=== PATIENT | male | born 1960 | race Caucasian/White ===

== ENCOUNTER 2022-08-23 22:41 | Emergency (ER) | payer MEDICARE, SELFPAY ==
[2022-08-23 22:43] VITALS: BP 120/75; PULSE 102; RESP 18; TEMP 36.5; O2SAT 99; BMI 27.8
--- NOTE | 2022-08-23 23:03 | ECG_ITS ---
Test Reason : SOB Blood Pressure : / mmHG Vent. Rate : 094 BPM Atrial Rate : 094 BPM P-R Int : 166 ms QRS Dur : 096 ms QT Int : 374 ms P-R-T Axes : 066 018 058 degrees QTc Int : 467 ms Normal sinus rhythm Possible Left atrial enlargement Incomplete right bundle branch block Borderline ECG When compared with ECG of 09-JAN-2010 04:09, QT has lengthened Referred By: Generic ED Physician Electronically Signed By:JOSEPH CAMPOVERDE MD
--- NOTE | 2022-08-23 23:06 | PC.NURSE ---
this rn assumed care of pt from waiting room @ 2300. pt tearful in room. 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 ekg order placed at this time. pt denies to this rn si/hi.
--- OUTSIDE RECORDS SUMMARY | 2022-08-23 23:23 | XMS_ITS | Continuity of Care Document ---
Author Name Unknown Organization [facility] Address [address] [place] [address]- Care Team Providers Care Wick And Base Assembler Name Role Phone Not on Staff, PCP Primary Care Physician Unavail able Encounter [facility] Date(s): 04/30/22 - 04/30/[address] [address]- Encounter Diagnosis Chest pain(Final) - 04/30/22 Discharge Disposition: A-D/C Home Attending Physician: Jasmyne MONSIVAIS, Domingo Dawson Admitting Physician: Jasmyne MONSIVAIS, Domingo Dawson Referring Physician: Not on Staff, Referring MD Allergies, Adverse Reactions, Alerts Substance Reaction Severity Status somatrem Persistent Mild Active tricyclic antidepressants Unknown Ac tive benzodiazepines 1 Unknown Active Flexeril Persistent Mild Active Haldol Persistent Severe Active Depakote Active Fish Active . Per MD pt states he know he has a problem and chooses not to take them. Not true allergy Immunizations Given and Recorded Vaccine Date Status Refusal Reason tetanus/diphtheria/pertussis, acel(Tdap) 11/22/11 Given Medications aspirin 81 mg oral tablet 1 tablet = 81 mg, By Mouth, Daily, # 30 tablet, 0 Refills, Maintenance, 02/27/18 23:06:42 EST, Tablet Start Date: 02/27/18 Status: Ordered atorvastatin 40 mg oral tablet 1 tablet = 40 mg, By Mouth, Daily, # 30 tablet, 0 Refills, Maintenance, Tablet Start Date: 07/27/16 Status: Ordered cloNIDine 0.1 mg oral tablet 0.1 mg, 1, tablet, By Mouth, 2 times a day, PRN, # 10 tablet, Refills 0, Tot. Refills 0, Maintenance, Anxiety, 09/02/21 20:43:00 EDT, Print Requisition, Partial fill upon patient request if the prescription is for a schedule II opioid drug. Start Date: 09/02/21 Stop Date: 09/09/21 Status: Ordered Crestor 40 mg oral tablet 1 tablet = 40 mg, By Mouth, Daily at bedtime, 0 Refills, Maintenance, 05/06/18 16:33:14 EST Start Date: 05/06/18 Status: Ordered desipramine 50 mg oral tablet 1 tablet = 50 mg, By Mouth, 3 times a day, 0 Refills, Maintenance, 07/27/16 13:55:52 Start Date: 07/27/16 Status: Ordered Dextroamphetamine By Mouth, Refills 0, Tot. Refills 0, Maintenance, 03/10/22 16:29:00 EST, Partial fill upon patient request if the prescription is for a schedule II opioid drug. Start Date: 03/10/22 Status: Ordered ibuprofen 600 mg oral tablet 600 mg, 1, tablet, By Mouth, Every 6 hours, PRN, # 30 tablet, Refills 0, Tot. Refills 0, Maintenance, as needed for pain, 02/27/18 23:52:14 EST, Print Requisition Start Date: 02/27/18 Status: Ordered lisinopril 20 mg oral tablet 1 tablet = 20 mg, By Mouth, Daily, # 30 tablet, 0 Refills, Maintenance, 06/10/14 15:35:51, Tablet Start Date: 06/10/14 Status: Ordered Methylphenidate 0 Refills, Maintenance, 03/10/22 16:29:00 EST, Partial fill upon patient request if the prescription is for a schedule II opioid drug. Start Date: 03/10/22 Status: Ordered mirtazapine 15 mg oral tablet 1 tablet = 15 mg, By Mouth, Daily at bedtime, 0 Refills, Maintenance, 03/10/22 16:29:00 EST, Partial fill upon patient request if the prescription is for a schedule II opioid drug. Start Date: 03/10/22 Status: Ordered Percocet-5/325 325 mg-5 mg oral tablet 1, tablet, By Mouth, Every 6 hours, PRN, # 12 tablet, Refills 0, Tot. Refills 0, Maintenance, for pain, 02/27/18 23:52:25 EST, Print Requisition, Tablet Start Date: 02/27/18 Status: Ordered pilocarpine 7.5 mg oral tablet 1 tablet = 7.5 mg, By Mouth, 2 times a day, 0 Refills, Maintenance, 04/28/14 11:07:10 Start Date: 04/28/14 Status: Ordered pindolol 10 mg oral tablet 1 tablet = 10 mg, By Mouth, Daily, # 180 tablet, 0 Refills, Maintenance, 02/27/18 23:07:09 EST, Tablet Start Date: 02/27/18 Status: Ordered predniSONE 20 mg oral tablet 2 tablet = 40 mg, By Mouth, Daily, # 10 tablet, 0 Refills, Soft Stop, 12/12/18 18:06:22 EDT, Tablet Start Date: 12/12/18 Stop Date: 12/17/18 Status: Ordered Proventil HFA 90 mcg/inh inhalation aerosol with adapter 2 puffs, Inhalation, 4 times a day, PRN for wheezing, # 25 Gm, 1 Refills, Maintenance, Aerosol Start Date: 11/20/09 Status: Ordered Stalevo 150 By Mouth, 5 times a day, 0 Refills, Maintenance, 01/08/11 10:57:27 EDT Start Date: 01/08/11 Status: Ordered Zoloft 50 mg oral tablet 1 tablet = 50 mg, By Mouth, Daily, # 30 tablet, 0 Refills, Maintenance, Tablet Start Date: 02/12/12 Status: Ordered Problem List Condition Confirmation Course Effective Dates Status Health Status Informant Arthritis Confirmed Active Asthma Confirmed Active Depression with anxiety Confirmed Active Excessive appetite Confirmed Active Excessive weight gain Confirmed Active GERD (gastroesophageal reflux disease) Confirmed Active HTN (hypertension) Confirmed Active Hypercholesterolemia Confirmed Active Hypothyroid Confirmed Active Hot flashes Confirmed Active Pain in right shoulder Confirmed Active Parkinson disease Confirmed Active Shoulder pain, right Confirmed Active Results Radiology Reports * Exam Date Time Procedure Performing Provider Status 04/30/22 4:55 PM Chest 2 Views Frontal and Lat Mary Ellen Cosby; Auth (Verified) Notes: (Chest 2 Views Frontal and Lat) Reason For Exam: Chest Pain;Other: RESULT: Chest 2 Views Frontal and Lat Chest 2 Views Frontal and Lat Hx of Present Illness: States, My BP spiked for no reason . Endorses CELESTE, mild CP, sweating, nausea, anxiety, palpitations, and worsened tremors from baseline. Patient does have hx HTN, has been taking medications as prescribed.; Reason: Other:; Chest Pain; Clinical Question(s): Other: COMPARISON: Multiple priors, most recent 12/12/2018. FINDINGS: LINES AND TUBES: None. LUNGS AND PLEURA: Clear lungs. Normal pulmonary vascularity. No pleural effusion. No pneumothorax. HEART, MEDIASTINUM AND ELIER: Heart is normal in size. Normal mediastinal and hilar contour. BONES AND SOFT TISSUES: No acute abnormality. IMPRESSION: No acute abnormality. WSN: [id number] Ordering Physician: Daniel Peng Dictated By: Abel Armendariz MD Dictated Date/Time: 04/30/22 5:01 pm Reviewed By: Abel rAmendariz MD Signed By: Abel Armendariz MD Signed Date/Time: 04/30/22 5:01 pm Transcribed By: FRED Transcribed Date/Time: 04/30/22 4:59 pm Vital Signs Most recent to oldest [Reference Range]: 1 2 3 Height 175 cm (04/30/22 6:56 PM) 175 cm (04/30/22 4:20 PM) Weight 86 kg (04/30/22 6:56 PM) 86 kg (04/30/22 4:20 PM) Oxygen Saturation [94-100 %] 95 % (04/30/22 6:56 PM) 97 % (04/30/22 4:20 PM) 98 % (04/30/22 4:03 PM) Pulse Rate [55-90 bpm] 86 bpm (04/30/22 6:56 PM) 104 bpm *H* (04/30/22 4:20 PM) 111 bpm *H* (04/30/22 4:03 PM) Body Mass Index [18.5-24.99 kg/m2] 28.08 kg/m2 *H* (04/30/22 6:56 PM) Blood Pressure [90-138/55-84 mm Hg] 139/94mm Hg *H* (04/30/22 6:56 PM) 165/97mm Hg *H* (04/30/22 4:20 PM) Respiratory Rate [16-30 br/min] 20 br/min (04/30/22 6:56 PM) 20 br/min (04/30/22 4:20 PM) 18 br/min (04/30/22 4:03 PM) Temperature [96.8-100.4 DegF] 97.6 DegF (04/30/22 6:56 PM) 97.2 DegF (04/30/22 4:20 PM) Mode of Delivery (Oxygen) Room air (04/30/22 6:56 PM) Room air (04/30/22 4:20 PM) Room air (04/30/22 4:03 PM) Blood pressure sites Arm, right (04/30/22 6:56 PM) Arm, right (04/30/22 4:20 PM) Temperature Route Temporal (04/30/22 6:56 PM) Temporal (04/30/22 4:20 PM) Dry Weight 86 kg (04/30/22 6:56 PM) 86 kg (04/30/22 4:20 PM) Dry Weight Obtained Via Standing scale (04/30/22 4:20 PM) Social History Social History Type Response Smoking Status Never smoker entered on: 06/10/14 Sex Note * Jasmyne MONSIVAIS, Domingo Dawson: PERFORM Event Display: Patient Education Leaflets Authored Date: [id number] Established High Blood Pressure ?? [id number] Established High Blood Pressure High blood pressure (hypertension) is a long-term (chronic) disease. Often healthcare providers don???t know what causes it. But it can be caused by certain health conditions and medicines. If you have high blood pressure, you may not have any symptoms. If you do have symptoms, they may include: ??? Headache ??? Dizziness ??? Changes in your vision ??? Chest pain ??? Shortness of breath But even without symptoms, high blood pressure that???s not treated raises your risk for heart attack, heart failure, kidney disease, and stroke. High blood pressure is a serious health risk and shouldn???t be ignored. Blood pressure measurements are given as 2 numbers. Systolic blood pressure is the upper number. This is the pressure when the heart contracts. Diastolic blood pressure is the lower number. This is the pressure when the heart relaxes between beats. You will see your blood pressure readings written together. For example, a person with a systolic pressure of 118 and a diastolic pressure of 78 will have 118/78 written in the medical record. Blood pressure is classified as normal, raised (elevated) or stage 1 or stage 2 high blood pressure: ??? Normal blood pressure. Systolic of less than 120 and diastolic of less than 80 (120/80). ??? Elevated blood pressure. Systolic of 120 to 129 and diastolic less than 80. ??? Stage 1 high blood pressure. Systolic is 130 to 139 or diastolic between 80 to 89. ??? Stage 2 high blood pressure. Systolic is 140 or higher or the diastolic is 90 or higher. Home care If you have high blood pressure, follow these home care guidelines to help lower your blood pressure. If you are taking medicines for high blood pressure, these methods may reduce or end your need for medicines in the future. ??? Start a weight-loss program if you are overweight. ??? Cut back on how much salt you get in your diet. Here???s how to do this: o Don???t eat foods that have a lot of salt. These include olives, pickles, smoked meats, and salted potato chips. o Don???t add salt to your food at the table. o Use only small amounts of salt when cooking. ??? Start an exercise program. Talk with your healthcare provider about the type of exercise program that would be best for you. It doesn't have to be hard. Even brisk walking for 20 minutes 3 times a week is a good form of exercise. ??? Don???t take medicines that stimulate the heart. This includes many [id number]-[id number] cold and sinus decongestant pills and sprays, as well as diet pills. Check the warnings about high blood pressure on the label. Before buying any flpj-aeb-cudegmx medicines or supplements, always ask the pharmacist about the product's possible interaction with your high blood pressure and your high blood pressure medicines. ??? Stimulants such as amphetamine or cocaine could be deadly for someone with high blood pressure. Never takethese. ??? Limit how much caffeine you get in your diet. Switch to caffeine-free products. ??? Stopsmoking. If you are a long-time smoker, this can be hard. Talk with your healthcare provider about medicines and nicotine replacement options to help you. Also join a stop-smoking program. This makesit more likely that you will quit for good. ??? Learn how to handle stress. This is an important part of any program to lower blood pressure. Learn about relaxation methods such as meditation, yoga, or biofeedback. ??? If your provider prescribed medicines, take them exactly as directed. Missing doses may cause your blood pressure to get out of control. ??? If you miss a dose, check with your healthcare provider or pharmacist about what to do. ??? Think about buying an automatic blood pressure machine to check your blood pressure at home. Ask your provider for a recommendation. You can get one of these at most pharmacies. Using a home blood pressure monitor The [employer] advises the following guidelines for home blood pressure monitoring:??? Don't smoke or drink coffee for 30 minutes before taking your blood pressure. ??? Go to the bathroom before the test. ??? Relax for at least 5 minutes before taking the measurement. ??? Sit with your back supported (don't sit on a couch or soft chair). Keep your feet on the floor uncrossed. Place your arm on a solid flat surface (such as a table) with the upper part of the arm at heart level.Place the middle of the cuff directly above the bend of the elbow. Check the monitor's instruction manual for an illustration. ??? Take multiple readings. When you measure, take 2 to 3 readings one minute apart and record all of the results. ??? Take your blood pressure at the same time every day, or as your healthcare provider advises. ??? Record the date, time, and blood pressure reading. ??? Take the record with you to your next healthcare appointment. If your blood pressure monitor has a built-in memory, just take the monitor with you to your next appointment. ??? Call your provider if you have several high readings. Don't be frightened by one high blood pressure reading. But if you geta few high readings, check in with your healthcare provider. ?? Follow-up care You will need to see your healthcare provider regularly. This is to check your blood pressure and to make changes to your medicines. Make a follow-up appointment as directed. Bring the record of yourhome blood pressure readings to the appointment. ?? Call 911 Call 911??if you have any of these: ??? Blood pressure of 180/120 or higher and any other symptoms linked to organ damage. These include: o Unusual chest pain or shortness of breath o Weakness of an arm or leg or one side of the face oProblems speaking or seeing o Severe headache o Sudden severe pain in your belly (abdomen) or back o Extreme drowsiness, confusion, or fainting o Passing out or seizures o Severe dizziness or spinning feeling (vertigo) that doesn't go away ? When to get medical advice Call your healthcare provider right away if any of these occur: ??? Blood pressure of 180/120 or higher, without other symptoms ??? Throbbing or rushing sound in the ears ??? Nosebleed ??? Mild or intermittent dizziness or spinning feeling (vertigo) ?? Last Reviewed Date: 2021 ?? 8417-2788 [employer]. All rights reserved. This information is not intended as a substitute for professional medical care. Always follow your healthcare professional's instructions. ?? * [employer]SP[employer] , CIS S: TRANSCRIBE Abel Armendariz MD: VERIFY Event Display: Result: Authored Date: [id number] Chest 2 Views Frontal and Lat Hx of Present Illness: States, My BP spiked for no reason . Endorses CELESTE, mild CP, sweating, nausea, anxiety, palpitations, and worsened tremors from baseline. Patient does have hx HTN, has been taking medications as prescribed.; Reason: Other:; Chest Pain; Clinical Question(s): Other: COMPARISON: Multiple priors, most recent 12/12/2018. FINDINGS: LINES AND TUBES: None. LUNGS AND PLEURA: Clear lungs. Normal pulmonary vascularity. No pleural effusion. No pneumothorax. HEART, MEDIASTINUM AND ELIER: Heart is normal in size. Normal mediastinal and hilar contour. BONES AND SOFT TISSUES: No acute abnormality. IMPRESSION: No acute abnormality. WSN: [id number] Ordering Physician: Daniel Peng Dictated By: Abel Armendariz MD Dictated Date/Time: 04/30/22 5:01 pm Reviewed By: Abel Armendariz MD Signed By: Abel Armendariz MD Signed Date/Time: 04/30/22 5:01 pm Transcribed By: FRED Transcribed Date/Time: 04/30/22 4:59 pm Patient Care team information Care Team Personnel Name: Padmini Khan RN Position: [facility] RN Member Role: Primary Care Nurse Name: Chelle Reese RN Position: [facility] RN Member Role: Primary Care Nurse Name: Not on Staff, PCP Position: [facility] Physician (General Medicine) Member Role: PCP Name: Grima Dickinson Position: [facility] ED TA [facility] Member Role: Patient Care Provider Name: Adwoa Reyna Position: [facility] ED RN W/OE and Tasks Member Role: Patient Care Provider Name: Jasmyne MONSIVAIS, Domingo Dawson Position: [facility] Resident Member Role: Admitting Physician Address: Address: [address] [place] [address]- Care Team Related Persons Name: NAHID MENDOZA Address: home [address] [place] [address] Name: VIOLET PEACOCK Address: home [address] [facility] [address] [place] [id number]
--- OUTSIDE RECORDS SUMMARY | 2022-08-23 23:23 | XMS_ITS | Continuity of Care Document ---
Author Name Unknown Organization [facility] Address [address] [place] [address]- Care Team Providers Care Dough Catcher Name Role Phone Not on Staff, PCP Primary Care Physician Unavail able Encounter [facility] Date(s): 07/14/22 - 07/14/[address] [address]- Encounter Diagnosis Nausea(Final) - 07/14/22 Discharge Disposition: A-D/C Home Attending Physician: Jasmyne [...] opioid drug. Start Date: 03/10/22 Status: Ordered ondansetron 4 mg oral tablet, disintegrating 1 tablet = 4 mg, By Mouth, Every 8 hours, PRN Nausea & Vomiting, # 9 tablet, 0 Refills, Maintenance, 07/14/22 10:09:00 EDT, [id number] Partial fill upon patient request if the prescription is for a schedule II opioid drug., 1... Start Date: 07/14/22 Stop Date: 07/17/22 Status: Ordered Percocet-5/325 325 mg-5 mg oral [...] Confirmed Active Shoulder pain, right Confirmed Active Vital Signs Most recent to oldest [Reference Range]: 1 2 Height 175 cm (07/14/22 6:44 AM) 175 cm (07/14/22 6:41 AM) Weight 87.7 kg (07/14/22 6:44 AM) 87.7 kg (07/14/22 6:41 AM) Oxygen Saturation [94-100 %] 98 % (07/14/22 6:44 AM) 66 % *L* (07/14/22 6:41 AM) Pulse Rate [55-90 bpm] 80 bpm (07/14/22 6:44 AM) 80 bpm (07/14/22 6:41 AM) Body Mass Index [18.5-24.99 kg/m2] 28.64 kg/m2 *H* (07/14/22 6:41 AM) Blood Pressure [90-138/55-84 mm Hg] 127/ 71mm Hg (07/14/22 6:44 AM) 127/71mm Hg (07/14/22 6:41 AM) Respiratory Rate [16-30 br/min] 18 br/mi n (07/14/22 6:44 AM) 15 br/min *L* (07/14/22 6:41 AM) Temperature [96.8-100.4 DegF] 98 DegF (07/14/22 6:44 AM) 98 DegF (07/14/22 6:41 AM) Mode of Delivery (Oxygen) Room air (07/14/22 6:44 AM) Room air (07/14/22 6:41 AM) Blood pressure sites Arm, left (07/14/22 6:44 AM) Arm, left (07/14/22 6:41 AM) Temperature Route Tympanic (07/14/22 6:44 AM) Oral (07/14/22 6:41 AM) Dry Weight 87.7 kg (07/14/22 6:44 AM) 87.7 kg (07/14/22 6:41 AM) Weight Obtained Via Standing scale (07/14/22 6:41 AM) Dry Weight Obtained Via Standing scale (07/14/22 6:41 AM) Social History Social History Type Response Smoking Status Never smoker entered on: 06/10/14 Sex Note * Jasmyne MONSIVAIS, Domingo Dawson: PERFORM Event Display: Patient Education Leaflets Authored Date: [id number] Gastritis (Adult) ?? [id number] Gastritis (Adult) Gastritis is??inflammation and??irritation of the stomach lining. You can have it for a short time (acute) or it can be long lasting (chronic). Infection with bacteria called??H. pylori most often causes gastritis.??More than 1 out of 3 people in the [place] have these bacteria in their bodies. In many cases,??H. pylori??causes no problems or symptoms. But in some people, the infection irritates thestomach lining and causes gastritis. H. pylori may be diagnosed through blood, stool, or breath tests, or by a biopsy during an endoscopy. Other causes of stomach irritation include drinking alcohol,smoking or chewing tobacco, or taking pain-relieving medicines called nonsteroidal anti-inflammatory drugs (NSAIDs), such as aspirin or ibuprofen. Some illegal drugs (such as cocaine) and immune conditions can also cause gastritis. Symptoms of gastritis can include: ??? Belly pain or bloating ??? Feeling full quickly ??? Loss of appetite ??? Weight loss ??? Nauseaor vomiting ??? Vomiting blood or having black stools ??? Feeling more tired than normal An inflamed and irritated stomach lining is more likely to develop a sore called an ulcer. To help prevent this, gastritis should be evaluated and treated as soon as symptoms occur. Home care If needed, your healthcare provider may prescribe medicines. If you have??H. pylori??infection, treating it will likely ease your symptoms. Other changes can help reduce stomach irritation and help it heal. ??? Take prescription medicines as directed. If you have been prescribed medicines for??H. pylori??infection, take them as directed. Take all of the medicine until it's finished or until your provider tells you to stop taking it, even if you start to feel better. ??? Follow your healthcare provider's advice on NSAIDs. Your provider may advise you not to take NSAIDs such as ibuprofen. If you take daily aspirin for your heart or other health reasons, don't stop without talking with your provider first. ??? Don't drink alcohol. If you need help stopping your use of alcohol, ask your provider for treatment resources. ??? Stop smoking. Smoking can irritate the stomach and delay healing. As much as possible, stay away from secondhand smoke. If you smoke and have trouble stopping, ask your provider for help. ?? Follow-up care Follow up with your healthcare provider, or as advised. You may need testing to check for inflammation or an ulcer. ?? When to get medical advice Call your healthcare provider if any of the following occur: ??? Stomach pain that gets worse or moves to the lower right belly (appendix area) ??? Chest pain that suddenly appears or gets worse, or spreads to the back, neck, shoulder, or arm ??? Frequent vomiting (can???t keep down liquids) ??? Blood in the stool or vomit (red or black in color) ??? Feeling weak or dizzy ??? Shortness of breath ??? Unexplained weight loss ??? Fever of 100.4??F (38??C) or higher, or as directed by your healthcare provider ??? Symptoms that get worse, or new symptoms ?? Last Reviewed Date: 2022 ?? [id number] [employer]. All rights reserved. This information is not intended as a substitute for professional medical care. Always follow your healthcare professional's instructions. ?? Patient Care team information Care Team Personnel Name: Padmini Khan RN Position: [facility] SN RN Member Role: Primary Care Nurse Name: Chelle Reese RN Position: [facility] SN RN Member Role: Primary Care Nurse Name: Not on Staff, PCP Position: [facility] Physician (General Medicine) Member Role: PCP Name: Carlota Limon RN Position: [facility] ED RN W/OE and Tasks Member Role: Patient Care Provider Name: Brandon Enrique Position: [facility] ED [place] [facility] [place] Name: Domingo Medley MD Position: [facility] Resident Member Role: Admitting Physician Address: Address: [address] [place] [address]- Care Team Related Persons Name: NAHID MENDOZA Address: home [address] [place] [address] Name: VIOLET PEACOCK Address: home [address] [facility] [address] [place] [id number]
--- OUTSIDE RECORDS SUMMARY | 2022-08-23 23:23 | XMS_ITS | Continuity of Care Document ---
Author Name Unknown Organization [facility] Address [address] [place] [address]- Care Team Providers Care Human Resources Temp Name Role Phone Not on Staff, PCP Primary Care Physician Unavail able Encounter [facility] Date(s): 05/11/22 - 05/11/[address] [address]- Discharge Disposition: A-D/C Home Attending Physician: Yvette MONSIVAIS, Nestor Denny Admitting Physician: Nestor Crawford MD Referring Physician: Not on Staff, Referring MD [...] 15:35:51, Tablet Start Date: 06/10/14 Status: Ordered LORazepam 1 mg oral tablet 1 tablet = 1 mg, By Mouth, 3 times a day, PRN for anxiety, for 2 days, # 6 tablet, 0 Refills, Acute05/13/22 20:55:00 EST, 05/11/22 20:55:00 EST, Tablet, [id number], Partial fill upon patient request if the prescription is for a sched... Start Date: 05/11/22 Stop Date: 05/13/22 Status: Ordered Methylphenidate 0 Refills, Maintenance, 03/10/22 [...] Range]: 1 2 3 Height 175 cm (05/11/22 9:07 PM) 175 cm (05/11/22 7:23 PM) 175 cm (05/11/22 6:18 PM) Weight 86.7 kg (05/11/22 9:07 PM) 86.7 kg (05/11/22:23 PM) 86.7 kg (05/11/22:18 PM) Oxygen Saturation [94-100 %] 94 % (05/11/22 9:07 PM) 97 % (05/11/22:23 PM) 97 % (05/11/22 6:16 PM) Pulse Rate [55-90 bpm] 72 bpm (05/11/22:07 PM) 103 bpm *H* (05/11/22:23 PM) 126 bpm *H* (05/11/22 6:16 PM) Body Mass Index [18.5-24.99 kg/m2] 28.31 kg/m2 *H* (05/11/22: PM) 28.31 kg/m2 *H* (05/11/22:23 PM) 28.31 kg/m2 *H* (05/11/22:16 PM) Blood Pressure [90-138/55-84 mm Hg] 138/94mm Hg (05/11/22:07 PM) 163/104mm Hg *H* (05/11/22:23 PM) 166/97mm Hg *H* (05/11/22 6:18 PM) Respiratory Rate [16-30 br/min] 25 br/min (05/11/22 9:07 PM) 23 br/min (05/11/22:23 PM) 22 br/min (05/11/22 6:16 PM) Temperature [96.8-100.4 DegF] 97.9 DegF (05/11/22 9:07 PM) 98.1 DegF (05/11/22 6:16 PM) Liters per Minute 0 L/min (05/11/22:07 PM) 0 L/min (05/11/22:23 PM) Mode of Delivery (Oxygen) Room air (05/11/22 9:07 PM) Room air (05/11/22 7:23 PM) Room air (05/11/22 6:16 PM) Blood pressure sites Arm, left (05/11/22 9:07 PM) Arm, left (05/11/22 7:23 PM) Arm, left (05/11/22 6:18 PM) Temperature Route Oral (05/11/22 9:07 PM) Temporal (05/11/22 6:16 PM) Dry Weight 86.7 kg (05/11/22 9:07 PM) 86.7 kg (05/11/22 7:23 PM) 86.7 kg (05/11/22 6:18 PM) Weight Obtained Via Patient/family state d (05/11/22 6:16 PM) Dry Weight Obtained Via Standing scale (05/11/22 6:16 PM) Social History Social History Type Response Smoking Status Never smoker entered on: 06/10/14 Sex Note * Yvette MONSIVAIS, Nestor Denny: PERFORM Event Display: Patient Education Leaflets Authored Date: [id number] Uncontrolled High Blood Pressure (Established) ?? [id number] Uncontrolled High Blood Pressure (Established) Your blood pressure was unusually high today. Your blood pressure may be high for several reasons. For example, this can occur if you???ve missed doses of your blood pressure medicine. Or it can happen if you are taking other medicines such as some asthma inhalers, decongestants, diet pills, and illegal drugs like cocaine and amphetamine. Other causes of high blood pressure include: ??? Weight gain ??? Too much salt in your diet ??? Smoking ??? Caffeine ??? Lack of exercise ??? Intense pain ??? Becoming upset???this means you feel fear, anger, or another strong emotion Blood pressure measurements are given as two numbers. Systolic blood pressure is the upper number. This is the pressure when the heart contracts. Diastolic blood pressure is the lower number. This isthe pressure when the heart relaxes between beats. You will see your blood pressure readings written together. For example, a person with a systolic pressure of 118 and a diastolic pressure of 78 will have 118/78 written in the medical record. To be diagnosed with high blood pressure, your numbers must be higher than the normal range when tested over a period of time. Blood pressure is categorized as normal, elevated, or stage 1 or stage 2 high blood pressure: ??? Normal blood pressure is systolic of less than 120 and diastolic of less than 80 (120/80) ??? Elevated blood pressure is systolic of 120 to 129 and diastolic less than 80 ??? Stage 1 high blood pressure is systolic of 130 to 139 or diastolic between 80 to 89 ??? Stage 2 high blood pressure is when systolic is 140 or higher or the diastolic is 90 or higher Uncontrolled high blood pressure can cause serious health problems. It raises your risk for heart attack, stroke, as well as both kidney and heart failure. But you can do many things to manage your blood pressure. In general, if you have high blood pressure, keeping your blood pressure below 130/80mmHg may help prevent these problems. Your healthcare provider may prescribe medicine to help control blood pressure if lifestyle changes are not enough. Home care It???s important to take steps to lower your blood pressure. If you are taking blood pressure medicine, the guidelines below may help you need less or no medicines in the future. ??? Start a weight-loss program if you are overweight. ??? Cut back on the amount of salt in your diet: o Don't have high-salt foods such as olives, pickles, smoked meats, canned soups, deli meats, or salted potato chips. o Don???t add salt to your food at the table. o Use only small amounts of salt when cooking. ??? Start an exercise program. Talk with your healthcare provider about what exercise program is best for you. It doesn???t have to be difficult. Even brisk walking for 20 minutes??3 times a week is a good form of exercise. ??? Don't use medicines that stimulate the heart. This includes many qzwu-lpx-vsnrlqu cold and sinus decongestant pills and sprays, as well as diet pills. Checkthe warnings about high blood pressure on the label. Before purchasing any maxc-cza-zavtozn medicines or supplements, always ask the pharmacist about the product's potential interaction with your high blood pressure and your medicines. ??? Stimulants such as amphetamine or cocaine could be lethal for someone with high blood pressure, as well as those on certain blood pressure medicines. Never take these. ??? Limit how much caffeine you drink. Consider switching to noncaffeinated beverages. ??? Stop smoking. If you are a long-time smoker, this can be hard. Enroll in a stop-smoking program to ma ke it more likely that you will succeed. Talk with your provider about ways to quit. ??? Learn how to handle stress better. This is an important part of any program to lower blood pressure. Learn ways to relax. These include meditation, yoga, and biofeedback. ??? If medicines were prescribed, take them exactly as directed. Missing doses may cause your blood pressure to get out of control. Don't stop taking your medicines, even if you feel better or you feel like you don't need them anymore. Talk with your healthcare provider. ??? If you miss a dose or doses of your medicines, check with your healthcare provider or pharmacist about what to do. ??? Consider buying an automatic blood pressure m achWattage. Your provider may advise a certain type. These are available at most pharmacies. It's idealto measure your blood pressure twice a day, once in the morning, and once in the late afternoon. Try to be consistent. Check your blood pressure around the same time each day for a good comparison. Keep a written record of your home blood pressure readings and take the record to your medical appointments. Here are some other guidelines on home blood pressure monitoring from the [place] [employer]. ??? Don't smoke or drink coffee for 30 minutes before measuring your blood pressure. ??? Go to the bathroom before the test. ??? Relax for 5 minutes before taking the measurement. ??? Sit correctly. Be sure your back is supported. Don't sit on a couch or soft chair. Uncross your feet and place them flat on the floor. Place your arm on a solid, flat surface like a table with the upper arm at heart level. Make certain the middle of the cuff is directly above the bend of the elbow. Check the monitor's instruction manual for an illustration. ??? Take multiple readings. When you measure, take 2 or 3 readings 1 minute apart and record all of the results. ??? Take your blood pressure at the sametime every day, or as your healthcare provider recommends. ??? Record the date, time, and blood pressure reading. ??? Take the record with you to your next appointment. If your blood pressure monitorhas a built-in memory, simply take the monitor with you to your next appointment. ??? Call your provider if you have several high readings. Don't be frightened by a single high reading, but if you get several high readings, check in with your healthcare provider. ??? Note: When blood pressure reaches a systolic (top number) of 180 or higher or a diastolic (bottom number) of 110 or higher, you need emergency medical treatment. Call your healthcare provider right away. ?? Follow-up care Regular visits to your own healthcare provider for blood pressure and medicine checks are an important part of your care. Make a follow-up appointment as directed. Bring the record of your home bloodpressure readings to the appointment. ?? When to seek medical advice ?? Call your healthcare provider right away if any of these occur: ??? Blood pressure reaches a systolic (top number) of 180 or higher or diastolic (bottom number) of110 or higher??? emergency medical treatment is required ??? Throbbing or rushing sound in the ears??? Nosebleed that comes back or doesn't go away ??? Dizziness or dizziness with spinning sensation(vertigo) Call 911 Call 911 if any of these occur: ??? Chest, arm, shoulder, neck, or upper back pain ??? Shortness ofbreath ??? Severe headache ??? Extreme drowsiness, confusion, or fainting ??? Weakness, tingling, or numbness of your face, arms, or legs (especially on one side of the body) ??? Trouble speaking or seeing? Last Reviewed Date: 2021 ?? [employer]. All rights reserved. This information is not intended as a substitute for professional medical care. Always follow your healthcare professional's instructions. ?? * Yvette MONSIVAIS, Nestor Denny: PERFORM Event Display: Patient Education Leaflets Authored Date: [id number] Anxiety??Reaction ?? [id number] Anxiety??Reaction Anxiety is the feeling we all get when we think something bad might happen. It is a normal responseto stress. It most often causes only a mild reaction. But it can interfere with daily life when anxiety is more severe. In some cases, you may not know what you???re anxious about. Anxiety seems to have both mental and physical triggers. You may have stress from home and family. Or work and social relationships. Anxiety tends to run in families. This may mean it???s linked to genes. During an anxiety reaction, you may feel: ??? Helpless ??? Nervous ??? Depressed ??? Grouchy Your body may show signs of anxiety in many ways. You may have: ??? Dry mouth ??? Shakiness ??? Dizziness ??? Weakness ??? Trouble breathing ??? Fast breathing ???Chest pressure ??? Sweating ??? Headache ??? Nausea ??? Diarrhea ??? Tiredness ??? Inability to sleep ??? Sexual problems Home care Try to find those things that set off anxiety in your life. They may not be obvious. They may include: ??? Daily hassles of life. This can include traffic jams, missed appointments, or car troubles. ???Major life changes. This means both good changes, such as a new baby or job promotion. This can also mean tough life changes, such as loss of a job or loss of a loved one. ??? Overload. This means feeling that you have too many responsibilities. And that you can't take care of all of them. ??? Feeling helpless. You may feel you don???t have any control or choices. You may feel that your problems can't be solved. Notice how your body reacts to stress. This will help you take action before the stress sets off anxiety. When you can, make changes to reduce the sources of your stress. But stress in life often can't be prevented. It is important to learn how to manage stress to reduce anxiety. There are many proven methods that will reduce your anxiety. These include: ??? Exercise ??? Good nutrition ??? Getting enough sleep ??? Relaxation methods ??? Breathing exercises ??? Visualization ??? Biofeedback ??? Meditation ??? Counseling ??? Medicine For more information about this, talk with your healthcare provider. Or check online or at your local library or bookstore. You'll find many books and audiobooks on this subject. ?? Follow-up care If you feel your anxiety is not getting better with self-help, call your healthcare provider. Or make an appointment with a counselor. You may need short-term counseling or medicine to help you manage anxiety. ?? Call 911 Call 911 if any of the following occur: ??? Trouble breathing ??? Confusion ??? Drowsiness or trouble waking up ??? Fainting ??? Rapid heart rate ??? Seizure ??? New chest pain that becomes more severe, lasts longer, or spreads into your shoulder, arm, neck, jaw, or back Call or text 148 if you have thoughts of harming yourself or others. You will be connected to trained crisis counselors at the National Suicide Prevention Lifeline. An online chat option is also available at www.suicidepreventionlifeline.org. You can also call Lifeline at 206-174-YRXE (294-334-8404). Lifeline is free and available 30/09. ?? When to get medical advice Call your healthcare provider right away if any of the following occur: ??? Symptoms that don't improve or get worse, such as feelings of hopelessness or overwhelming sadness ??? Severe headache not eased by rest and mild pain medicine The National Suicide Prevention Lifeline is available at 925-747-KUTA (742-448-1077). The Lifeline is available 30/09 and provides free and confidential support. The Lifeline also has an online chat at www.suicideBoosted Boards.org. ?? Last Reviewed Date: 2021 ?? [employer]. All rights reserved. This information is not intended as a substitute for professional medical care. Always follow your healthcare professional's instructions. ?? Patient Care team information Care Team Personnel Name: Padmini Khan RN Position: [facility] SN RN Member Role: Primary Care Nurse Name: Chelle Reese RN Position: [facility] SN RN Member Role: Primary Care Nurse Name: Not on Staff, PCP Position: [facility] Physician (General Medicine) Member Role: PCP Name: Nestor Crawford MD Position: [facility] ED Medicine MD Member Role: Admitting Physician Address: Address: [address] [place] [address] [place] [address]- Name: Elizabeth Vargas Position: [facility] ED OA Member Role: Patient Care Provider Name: Jillian Guidry Position: [facility] ED RN W/OE and Tasks Member Role: Patient Care Provider Care Team Related Persons Name: BRIANNADanaMATEO NAHID Address: home [address] [place] [address] Name: VIOLET PEACOCK Address: [address] [facility] [address] [place] [address]
--- OUTSIDE RECORDS SUMMARY | 2022-08-23 23:23 | XMS_ITS | Continuity of Care Document ---
Author Name Unknown Organization [facility] Address [address] [place] [address]- Care Team Providers Care Triple Valve Tester Name Role Phone Not on Staff, PCP Primary Care Physician Unavail able Encounter [facility] Date(s): 03/10/22 - 03/10/[address] [address]- Discharge Disposition: A-D/C Home Attending Physician: Lavelle Ren MD Admitting Physician: Mikal MONSIVAIS, Lavelle Referring Physician: Not on Staff, Referring MD [...] 2 times a day, 0 Refills, Maintenance, 02/19/15 11:07:10 Start Date: 04/28/14 Status: Ordered pindolol [...] [Reference Range]: 1 2 Height 175 cm (03/10/22 6:56 PM) 175 cm (03/10/22 4:25 PM) Weight 85.9 kg (03/10/22 4:25 PM) Oxygen Saturation [94-100 %] 98 % (03/10/22 6:56 PM) 96 % (03/10/22 4:24 PM) Pulse Rate [55-90 bpm] 74 bpm (03/10/22 6:56 PM) 100 bpm *H* (03/10/22 4:24 PM) Blood Pressure [90-138/55-84 mm Hg] 141/ 97mm Hg *H* (03/10/22 6:56 PM) 165/98mm Hg *H* (03/10/22 4:24 PM) Respiratory Rate [16-30 br/min] 18 br/mi n (03/10/22 6:56 PM) 20 br/min (03/10/22 4:24 PM) Temperature [96.8-100.4 DegF] 98.1 DegF (03/10/22 4:24 PM) Mode of Delivery (Oxygen) Room air (03/10/22 6:56 PM) Room air (03/10/22 4:24 PM) Blood pressure sites Arm, left (03/10/22 6:56 PM) Arm, right (03/10/22 4:24 PM) Temperature Route Temporal (03/10/22 4:24 PM) Dry Weight 85.9 kg (03/10/22 4:25 PM) Weight Obtained Via Standing scale (03/10/22 4:25 PM) Social History Social History Type Response Smoking Status Never smoker entered on: 06/10/14 Sex Patient Care team information Care Team Personnel Name: Padmini Khan RN Position: [facility] SN RN Member Role: Primary Care Nurse Name: Chelle Reese RN Position: [facility] SN RN Member Role: Primary Care Nurse Name: Not on Staff, PCP Position: [facility] Physician (General Medicine) Member Role: PCP Name: Radha Matt RN Position: [facility] ED RN W/OE and Tasks Member Role: Patient Care Provider Name: Halle Turpin Position: [facility] Associate Professional Member Role: Physician Tractor Distributor Address: Address: [address] [place] [address] [place] [address]- Name: Lavelle Ren MD Position: [facility] ED Medicine MD Member Role: Admitting Physician Address: Address: [address] [place] [address] [place] [address]- Name: Jessica Manning RN Position: [facility] ED RN W/OE and Tasks Care Team Related Persons Name: NAHID MENDOZA Address: home [address] [place] [address] Name: VIOLET PEACOCK Address: home [address] [facility] [address] [place] [address]
--- OUTSIDE RECORDS SUMMARY | 2022-08-23 23:23 | XMS_ITS | Continuity of Care Document ---
Author Name Unknown Organization [facility] Address [address] [place] [address]- Care Team Providers Care Inspector [employer] Name Role Phone Not on Staff, PCP Primary Care Physician Unavail able Encounter [facility] Date(s): 09/02/21 - 09/02/[address] [address]- Encounter Diagnosis Anxiety reaction(Final) - 09/02/21 Discharge Disposition: A-D/C Home Attending Physician: Placido Salazar MD Admitting Physician: Placido Salazar MD Referring Physician: Not on Staff, Referring [...] 07/27/16 13:55:52 Start Date: 07/27/16 Status: Ordered ibuprofen 600 mg oral tablet [...] 15:35:51, Tablet Start Date: 06/10/14 Status: Ordered Percocet-5/325 325 mg-5 mg oral [...] Date: 02/12/12 Status: Ordered Problem List Condition Effective Dates Status Health Status Inform ant Arthritis(Confirmed) Active Asthma(Confirmed) Active Depression with anxiety(Confirmed) Active Excessive appetite(Confirmed) Active Excessive weight gain(Confirmed) Active GERD (gastroesophageal reflu x disease)(Confirmed) Active HTN (hypertension)(Confirmed) Active Hypercholesterolemia(Confirmed) Active Hypothyroid(Confirmed) Active Hot flashes(Confirmed) Active Pain in right shoulder(Confirmed) Active Parkinson disease(Confirmed) Active Shoulder pain, right(Confirmed) Active Vital Signs Most recent to oldest [Reference Range]: 1 Height 176 cm (09/02/21 7:41 PM) Weight 82 kg (09/02/21 7:41 PM) Oxygen Saturation [94-100 %] 100 % (09/02/21 7:41 PM) Pulse Rate [55-90 bpm] 102 bpm *H* (09/02/21 7:41 PM) Blood Pressure [90-138/55-84 mm Hg] 135/ 80mm Hg (09/02/21 7:41 PM) Respiratory Rate [16-30 br/min] 24 br/mi n (09/02/21 7:41 PM) Temperature [96.8-100.4 DegF] 98.1 DegF (09/02/21 7:41 PM) Temperature Route Oral (09/02/21 7:41 PM) Dry Weight 82 kg (09/02/21 7:41 PM) Social History Social History Type Response Smoking Status Never smoker entered on: 06/10/14 Sex
--- NOTE | 2022-08-23 23:59 | ED_ITS ---
HPI - Anxiety General Chief Complaint: Anxiety Stated Complaint: Anxiety Time Seen by Provider: 08/23/22 23:33 Source: patient and RN notes reviewed Mode of arrival: ambulatory Limitations: no limitations History of Present Illness HPI narrative: This is a 62-year-old male, with a past medical history of diabetes, hypertension, and anxiety, presenting to the emergency department with complaints of anxiety attack which started today. Patient states that he has been taking hydroxyzine over the last week for a rash, prescribed by his primary care physician. He states that he has been taking this regularly and noticed several hours after taking hydroxyzine he felt his anxiety increase. He states that he felt as though his heart was racing developed dry mouth, nausea, and shortness of breath. Patient reports that he took hydroxyzine and is now feeling 100% better. He states that his symptoms that he experience this afternoon are exactly like his anxiety attacks he has had in the past. He reports that his body is very sensitive to medications and believes that he may have been and a type of withdrawal from hydroxyzine. Patient reports that he is feeling well and is ready to be discharged. He denies any headache, blurred vision, chest pain, vomiting. Denies SI or HI. No other complaints or concerns at this time. MD complaint: anxiety, heart racing and shortness of breath Symptoms: dyspnea, dry mouth and muscle cramps Quality: constant Place: home History of similar episodes: Yes Provoking factors: medication change Relieving factors: medication Exacerbating factors: nothing Associated symptoms: shortness of breath and nausea/vomiting Related Data Allergies Allergy/AdvReac Type Severity Reaction Status Date / Time divalproex sodium Allergy Severe INCRESED Unverified 11/25/19 18:01 [facility] AMMONIA LEVELS SEAFOOD Allergy Severe facial Uncoded 11/25/19 18:01 swelling; difficulty breathing Review of Systems Review of Systems: Constitutional: No Weight loss, No Fever, No Chills, No Night Sweats, No Fatigue, No Malaise ENT/Mouth: No Hearing loss, No Ear Pain, No Nasal Congestion, No Sinus Pain, No Hoarseness, No sore throat, No Rhinorrhea, No Swallowing Difficulty Eyes: No Eye Pain, No Swelling, No Redness, No Foreign Body, No Discharge, No Vision Changes Cardiovascular: No Chest Pain, + SOB, No Dyspnea on Exertion, No Orthopnea, No Edema, No Palpitations Respiratory: No Cough, No Sputum, No Wheezing, No Smoke Exposure, No Dyspnea Gastrointestinal: No Nausea, No Vomiting, No Diarrhea, No Constipation, No Abdominal pain, No Hematochezia, No Melena Genitourinary: No irregular bleeding, No Dysuria, No Urinary Frequency, No Hematuria, No Urinary Incontinence/retention, No Urgency, No Flank Pain, No Urinary Flow Changes, No Hesitancy Musculoskeletal: No joint pain, No Myalgias, No Joint Swelling Skin: No Skin Lesions, No rash Neuro: No Weakness, No Numbness, No Paresthesias, No Loss of Consciousness, No Dizziness, No Headache Psych: No Anxiety/Panic, No Depression, No SI/HI/AH/VH, No Social Issues, Heme/Lymph: No Bruising, No Bleeding,No Lymphadenopathy Endocrine: No Polyuria, No Polydipsia, No Temperature Intolerance Yes all other systems are reviewed and are negative Constitutional: Constitutional: Reports as per [facility] Past Medical History Attestation statement: The following information was validated with the patient. Social History Social History Smoked in Last 30 Days: No Use of substances other than those prescribed or required for medical reasons: No Advance Directives: No Advance Directives Information Provided: Yes Physical Exam Vital Signs: Vital Signs: Last Vital Signs Temp 97.9 F 08/24/22 00:10 Pulse 89 08/24/22 00:10 Resp 18 08/24/22 00:10 BP 96/64 08/24/22 00:10 Pulse Ox 95 08/24/22 00:10 O2 Del Method Room Air 08/24/22 00:10 BMI result Body Mass Index 27.8 Const: General: cooperative, comfortable and no acute distress Orientation/consciousness: patient oriented x3 Limitations: no limitations HEENT: Head: Yes normal to inspection, Yes normocephalic and Yes atraumatic Ears: hearing grossly normal bilaterally General nose exam: Normal external nose present Face and sinus: Yes normal facial exam Mouth: Normal oral and palatal mucosa present, oropharynx normal and moist mucous membranes Throat: Yes posterior oropharynx normal Eyes: General: appearance normal, both eyes and all related structures Eyelids: Yes eyelids normal Conjunctivae: conjunctivae normal Sclerae: sclerae normal Pupils: Equal, round and reactive pupils present EOM: EOMs intact bilaterally Neck: Neck: Yes normal visual inspection, Yes full ROM and Yes no lymphadenopathy Lymphatic: no lymphadenopathy noted Chest: Chest palpation & inspection: normal inspection of the chest Resp: Effort & Inspection: normal respiratory effort and able to speak in complete sentences Auscultation: clear to auscultation bilaterally, no crackles, no rales, no rhonchi and no wheezes Cardio: Rate: regular rate Rhythm: regular rhythm Heart sounds: S1 normal heart sound present and S2 normal heart sound present GI: Other: Abdomen is soft, nontender, nondistended, normoactive bowel sounds present in all 4 quadrants. Inspection: Yes normal to inspection Skin: General skin exam: no rashes or lesions noted Trauma: no lacerations or abrasions Wounds: no wounds Neuro: General: patient oriented x3 and moves all extremities Cranial nerves: Yes Equal, round and reactive pupils present Extrem: General: Yes normal to inspection Right upper extremity: normal to inspection Left upper extremity: normal to inspection Right lower extremity: normal to inspection Left lower extremity: normal to inspection Medical Decision Making Medical Decision Making MDM Narrative: This is a 62-year-old male, with a past medical history of hypertension, diabetes, PTSD and anxiety, presenting to the emergency department for evaluation of anxiety attack which occurred this afternoon. Patient reports that he felt as though his hydroxyzine was wearing off and developed a dry mouth, felt as though his heart was racing and shortness of breath. He states that his symptoms feel exactly like his anxiety attacks he has had in the past. He took hydroxyzine and his symptoms completely resolved. He denies any chest pain. Patient is feeling well and would like to be discharged home. EKG similar appearing from previous. I discussed with patient that we are unable to rule out whether not this is something cardiac related without blood work however patient is adamant in believes that his symptoms are attributed to anxiety only. Patient reports that he is feeling completely better after taking hydroxyzine and would like to be discharged. Does not want have blood work at this time. Patient given strict return precautions. Patient understands and agrees with plan. Vital signs stable. Discussed coping mechanisms with stressors, I think it is reasonable that patient should taper off of hydroxyzine by cutting tablets in half or quarters although hydroxyzine withdrawal does not occur often, this could be attributing to his symptoms. I discussed that we will not make any medication changes at this time and that he needs to follow-up with his psychiatrist and primary care physician. Patient understands and agrees with plan. Patient stable for discharge. Differential Diagnosis Differential Diagnoses: The differential diagnosis associated with the presentation includes Anxiety, depression, panic disorder Independent Interpretation I performed an independent interpretation of an: EKG Interpretation: EKG normal sinus rhythm at 94 beats per minute, WA interval 166, QTC 467, incomplete right bundle-branch block similar appearing EKG from previous. No ST elevation or depression Discharge Plan Discharge Clinical Impression: Acute anxiety Patient Disposition: Home, Self-Care Instructions: Anxiety (ED) Additional Instructions: Your symptoms are likely due to anxiety. Please follow-up with your psychiatrist and primary care physician. If you develop any chest pain or shortness breast or any other worsening symptoms please return for re-evaluation. Interventions: ED Discharge Assessment Last Done: 08/24/22 00:20 Discharge Date/Time: 08/24/22 00:20
[2022-08-24 00:10] VITALS: BP 96/64; PULSE 89; RESP 18; TEMP 36.6; O2SAT 95
--- NOTE | 2022-08-24 00:19 | PC.NURSE ---
vss. skin pwd. pt reports decreased anxiety. pt states feels safe for discharge. pt calm and cooperative. pt provided with discharge packet. pt verbalized understanding of discharge plan
== END 2022-08-24 00:20 | disposition home or self-care (01) ==
PROVIDERS: Emergency Provider Emergency Medicine Emergency Medical Services
DX: F41.1 Generalized anxiety disorder (principal); F43.0 Acute stress reaction; R06.02 Shortness of breath; R00.2 Palpitations
CPT/HCPCS: 93005; 99283; 99284

== ENCOUNTER 2022-11-17 02:23 | Emergency (ER) | payer MEDICARE, SELFPAY ==
[2022-11-17 02:32] VITALS: BP 139/82; PULSE 81; RESP 18; TEMP 36.8; O2SAT 98; BMI 28.1
[2022-11-17 04:02] LABS: MANUAL DIFF FLAG NO
[2022-11-17 04:05] LABS: Basophils Absolute Auto 0.1 X10*3/uL (0.0-0.2); Basophils Percent Auto 0.9 % (0-2); Eosinophils Absolute Auto 0.2 X10*3/uL (0.0-0.4); Hematocrit 42.6 % (42.0-52.0); Hemoglobin 14.6 g/dl (14.0-18.0); Imm Gran Abs Auto 0.08 X10*3/uL (0.00-0.03); Imm Gran Pct Auto 1.4 % (0.0-0.4); Lymphocytes Absolute Auto 1.8 X10*3/uL (1.2-4.9); Lymphocytes Percent Auto 30.9 % (20-40); Mean Corpuscular HGB Conc 34.3 g/dl (31.0-36.0); Mean Corpuscular Hemoglobin 29.6 pg (27.0-33.0); Mean Corpuscular Volume 86.2 fL (80.0-98.0); Mean Platelet Volume 9.5 fL (9.4-12.4); Monocytes Absolute Auto 0.6 X10*3/uL (0.1-1.2); Neutrophils Percent Auto 52.8 % (45-73); Platelet Count 200 X10*3/uL (160-400); Red Blood Count 4.94 X10*6/uL (4.60-5.80); Red Cell Distribution Width 12.4 % (11.0-16.0); White Blood Count 5.7 X10*3/uL (4.8-10.8)
[2022-11-17 04:15] LABS: Anion Gap 10 (12-20); Blood Urea Nitrogen 16 mg/dL (9-16); Calcium 9.4 mg/dL (8.4-10.2); Carbon Dioxide 28 mmol/L (22-29); Chloride 108 mmol/L (96-108); Creatinine Clr Calc Pharmacy 99.1; Estimated Glomerular Filt Rate > 60; Glucose Random 200 mg/dL (60-115); Potassium 3.4 mmol/L (3.3-5.1); Sodium 143 mmol/L (135-145)
[2022-11-17 05:12] VITALS: BP 133/79; PULSE 67; RESP 18; TEMP 36.6; O2SAT 98
--- NOTE | 2022-11-17 05:55 | ED.WOUNDLAC ---
HPI - Wound/Laceration General Chief Complaint: Wound/Laceration Stated Complaint: toe infection Time Seen by Provider: 11/17/22 05:49 Source: patient Mode of arrival: ambulatory Limitations: no limitations History of Present Illness HPI narrative: This is a 62 years old patient with history of anxiety disorder, diabetes, hypertension, Parkinson disease presented to the emergency department complaining of a small ulcer in the plantar aspect the of the right 4th toe. He denies any fever chills vomiting ,he has been prescribed the cephalosporin (cephalexin) he was unable to tolerate the the antibiotic. Onset (ago): day(s) (1) Associated symptoms: none Related Data Previous Rx's Medication Instructions Recorded doxycycline monohydrate 100 mg 100 mg PO BID #14 caps 11/17/22 capsule (Monodox) Allergies Allergy/AdvReac Type Severity Reaction Status Date / Time divalproex sodium Allergy Severe INCRESED Verified 11/17/22 02:31 [From DEPAKOTE] AMMONIA LEVELS haloperidol [From Haldol] Allergy Confusion Verified 11/17/22 02:30 SEAFOOD Allergy Severe facial Uncoded 11/17/22 02:31 swelling; difficulty breathing Review of Systems Constitutional: Constitutional: Reports no additional constitutional complaints ENT: Reports system reviewed and no additional complaints, except as documented Gastrointestinal: Gastrointestinal: Reports no additional gastrointestinal complaints Neurologic: Reports system reviewed and no additional complaints, except as documented [facility] Past Medical History [facility] Narrative: Hypertension, type 2 diabetes, Parkinson disease, anxiety disorder Social History Social History Alcohol intake: never Smoked in Last 30 Days: No Use of substances other than those prescribed or required for medical reasons: No Advance Directives: No Advance Directives Information Provided: No Physical Exam Vital Signs: Vital Signs: Last Vital Signs Temp 97.8 F 11/17/22 05:12 Pulse 67 11/17/22 05:12 Resp 18 11/17/22 05:12 BP 133/79 11/17/22 05:12 Pulse Ox 98 11/17/22 05:12 O2 Del Method Room Air 11/17/22 05:12 BMI result Body Mass Index 28.1 Const: Other: He looks well is not toxic-appearing, he is afebrile normotensive General: healthy appearing, comfortable and no acute distress Nutritional Appearance: average body habitus Orientation/consciousness: patient oriented x3 Limitations: no limitations HEENT: Head: Yes normal to inspection Ears: hearing grossly normal bilaterally General nose exam: Normal external nose present Face and sinus: Yes normal facial exam Mouth: Normal oral and palatal mucosa present Throat: Yes posterior oropharynx normal Neck: Neck: Yes normal visual inspection Chest: Chest palpation & inspection: normal inspection of the chest Resp: Effort & Inspection: normal respiratory effort Auscultation: clear to auscultation bilaterally Cardio: Jugular venous distension: no JVD Rate: regular rate Rhythm: regular rhythm GI: Inspection: Yes normal to inspection Palpation (GI): Soft to palpation, not firm, nontender and no guarding : General: Yes no CVA tenderness Back/Spine/Pelvis: Back: no CVA tenderness Neuro: General: patient oriented x3 Extrem: Other: Examination the right foot showed good circulation good perfusion good capillary refill in the plantar aspect of the 4th toe there is a small wound General: Yes normal to inspection Medical Decision Making Medical Decision Making MDM Narrative: Patient presented with a small wound in the plantar aspect of the right foot at the level of the 4th toe. He is not toxic he has a normal white count he does not meet criteria for admission to the hospital. I think can be discharged home on p.o. antibiotic and referral to the wound clinic, the plan of care was discussed with the patient is very comfortable with this. Differential Diagnosis Differential Diagnoses: The differential diagnosis associated with the presentation includes Cellulitis/I do not think he has osteomyelitis/ diabetic ulcer Admission/Observation Consideration of admission/observation: Escalation of care including admission/observation considered Lab Data MDM Lab Attestation statement: I reviewed the patient's lab results. 11/17/22 03:54 11/17/22 03:54 Labs: Lab Results 11/17/22 Range/Units 03:54 WBC 5.7 (4.8-10.8) X10*3/uL RBC 4.94 (4.60-5.80) X10*6/uL Hgb 14.6 (14.0-18.0) g/dl Hct 42.6 (42.0-52.0) % MCV 86.2 (80.0-98.0) fL MCH 29.6 (27.0-33.0) pg MCHC 34.3 (31.0-36.0) g/dl RDW 12.4 (11.0-16.0) % Plt Count 200 (160-400) X10*3/uL MPV 9.5 (9.4-12.4) fL Immature Gran % (Auto) 1.4 H (0.0-0.4) % Neut % (Auto) 52.8 (45-73) % Lymph % (Auto) 30.9 (20-40) % [place] % (Auto) 10.0 (2-11) % Eos % (Auto) 4.0 (0-4) % Baso % (Auto) 0.9 (0-2) % Lymph # (Auto) 1.8 (1.2-4.9) X10*3/uL [place] # (Auto) 0.6 (0.1-1.2) X10*3/uL Eos # (Auto) 0.2 (0.0-0.4) X10*3/uL Baso # (Auto) 0.1 (0.0-0.2) X10*3/uL Abs Immat Gran (auto) 0.08 H (0.00-0.03) X10*3/uL Absolute Neuts (auto) 3.0 (2.0-8.3) x10*3/uL Absolute Nucleated RBC 0.000 (0.0-0.012) X10*3/uL Nucleated RBC % (auto) 0.0 (0.0-0.2) /100WBC Sodium 143 (135-145) mmol/L Potassium 3.4 (3.3-5.1) mmol/L Chloride 108 (96-108) mmol/L Carbon Dioxide 28 (22-29) mmol/L Anion Gap 10 L (12-20) BUN 16 (9-16) mg/dL Creatinine 0.84 (0.5-1.4) mg/dL Estim Creat Clear Calc 99.1 Estimated GFR > 60 Random Glucose 200 H (60-115) mg/dL Calcium 9.4 (8.4-10.2) mg/dL External Record Review External record reviewed: Inpatient record Chronic Conditions Patient?s care impacted by: Diabetes and Hypertension Discharge Plan Discharge Clinical Impression: Diabetic infection of right foot Patient Disposition: Home, Self-Care Instructions: Foot Care for People with Diabetes (ED) Additional Instructions: Return to the emergency room if you are worse, if you have a fever, call the wound care center fo follow up [phone] Prescriptions: New doxycycline monohydrate [Monodox] 100 mg capsule 100 mg PO BID Qty: 14 0RF Interventions: ED Discharge Assessment Last Done: 11/17/22 06:23 Discharge Date/Time: 11/17/22 06:15
== END 2022-11-17 06:15 | disposition home or self-care (01) ==
PROVIDERS: Emergency Provider Emergency Medicine
DX: S91.104A Unspecified open wound of right lesser toe(s) without damage to nail, initial encounter (principal); E11.8 Type 2 diabetes mellitus with unspecified complications; X58.XXXA Exposure to other specified factors, initial encounter; Y93.9 Activity, unspecified; Y92.9 Unspecified place or not applicable; Y99.9 Unspecified external cause status; Z79.899 Other long term (current) drug therapy
CPT/HCPCS: 36415; 80048; 85025; 99283; 99284

== ENCOUNTER 2023-01-26 03:41 | Emergency (ER) | payer MEDICARE, SELFPAY ==
[2023-01-26 03:44] VITALS: BP 136/80; PULSE 90; RESP 22; TEMP 36.7; BMI 26.6
--- NOTE | 2023-01-26 03:56 | ECG_ITS ---
Test Reason : CP Blood Pressure : / mmHG Vent. Rate : 075 BPM Atrial Rate : 075 BPM P-R Int : 170 ms QRS Dur : 104 ms QT Int : 402 ms P-R-T Axes : 045 007 056 degrees QTc Int : 448 ms Normal sinus rhythm Incomplete right bundle branch block Borderline ECG When compared with ECG of 23-AUG-2022 23:05, No significant change was found Referred By: Generic ED Physician Electronically Signed By:CHRISTINA ALVARENGA MD
[2023-01-26 04:15] LABS: MANUAL DIFF FLAG NO
[2023-01-26 04:16] LABS: Basophils Percent Auto 0.7 % (0-2); Eosinophils Absolute Auto 0.1 X10*3/uL (0.0-0.4); Eosinophils Percent Auto 3.1 % (0-4); Hematocrit 41.7 % (42.0-52.0); Hemoglobin 14.2 g/dl (14.0-18.0); Imm Gran Abs Auto 0.05 X10*3/uL (0.00-0.03); Imm Gran Pct Auto 1.2 % (0.0-0.4); Lymphocytes Absolute Auto 1.5 X10*3/uL (1.2-4.9); Lymphocytes Percent Auto 35.6 % (20-40); Mean Corpuscular HGB Conc 34.1 g/dl (31.0-36.0); Mean Corpuscular Hemoglobin 28.5 pg (27.0-33.0); Mean Corpuscular Volume 83.6 fL (80.0-98.0); Mean Platelet Volume 9.3 fL (9.4-12.4); Monocytes Absolute Auto 0.4 X10*3/uL (0.1-1.2); Monocytes Percent Auto 9.2 % (2-11); Neutrophils Absolute Auto 2.1 x10*3/uL (2.0-8.3); Neutrophils Percent Auto 50.2 % (45-73); Platelet Count 188 X10*3/uL (160-400); Red Blood Count 4.99 X10*6/uL (4.60-5.80); Red Cell Distribution Width 12.7 % (11.0-16.0); White Blood Count 4.1 X10*3/uL (4.8-10.8)
[2023-01-26 04:20] LABS: Ammonia 30 umol/L (13-55)
[2023-01-26 04:29] LABS: Alanine Aminotransferase 6 U/L (0-40); Albumin Level 3.8 g/dL (3.5-5.0); Alkaline Phosphatase 62 U/L (39-117); Anion Gap 11 (12-20); Aspartate Amino Transferase 18 U/L (5-37); Bilirubin Total 0.4 mg/dL (0.0-1.0); Blood Urea Nitrogen 18 mg/dL (9-16); Calcium 8.8 mg/dL (8.4-10.2); Carbon Dioxide 25 mmol/L (22-29); Chloride 107 mmol/L (96-108); Estimated Glomerular Filt Rate > 60; Glucose Random 218 mg/dL (60-115); Potassium 3.7 mmol/L (3.3-5.1); Sodium 139 mmol/L (135-145); Total Protein 5.9 g/dL (6.5-8.0)
[2023-01-26 04:40] LABS: Troponin-I High Sensitivity < 2.7 ng/L (<3.5-35.0)
--- NOTE | 2023-01-26 05:30 | ED_ITS ---
HPI - Anxiety General Chief Complaint: Dyspnea Stated Complaint: trouble breathing Time Seen by Provider: 01/26/23 05:22 Source: patient Mode of arrival: ambulatory Limitations: no limitations History of Present Illness HPI narrative: Patient comes to the emergency room complaining of anxiety. Patient states that he woke up feeling very anxious, having chest pressure and shortness of breath. Patient states that he has had multiple of these episodes in the past. At this time, patient states that he feels more relaxed, no anxious, no chest pain or shortness of breath. Related Data Previous Rx's Medication Instructions Recorded doxycycline monohydrate 100 mg 100 mg PO BID #14 caps 11/17/22 capsule (Monodox) Allergies Allergy/AdvReac Type Severity Reaction Status Date / Time divalproex sodium Allergy Severe INCRESED Verified 01/26/23 03:51 [From DEPAKOTE] AMMONIA LEVELS haloperidol [From Haldol] Allergy Confusion Verified 01/26/23 03:51 SEAFOOD Allergy Severe facial Uncoded 11/17/22 02:31 swelling; difficulty breathing Review of Systems 2 Review of Systems: Constitutional : No Weight loss, No Fever, No Chills, No Night Sweats, No Fatigue, No Malaise ENT/Mouth : No Hearing loss, No Ear Pain, No Nasal Congestion, No Sinus Pain, No Hoarseness, No sore throat, No Rhinorrhea, No Swallowing Difficulty Eyes: No Eye Pain, No Swelling, No Redness, No Foreign Body, No Discharge, No Vision Changes Cardiovascular : No Chest Pain,, complaining of chest pressure, No SOB, No Dyspnea on Exertion, No Orthopnea, No Edema, No Palpitations Respiratory : No Cough, No Sputum, No Wheezing, No Smoke Exposure, No Dyspnea Gastrointestinal : No Nausea, No Vomiting, No Diarrhea, No Constipation, No abdominal Pain, No Hematochezia, No Melena Genitourinary : no irregular bleeding, No Dysuria, No Urinary Frequency, No Hematuria, No Urinary Incontinence, No Urgency, No Flank Pain, No Urinary Flow Changes, No Hesitancy Musculoskeletal : No joint pain, No Myalgias, No Joint Swelling Skin : No Skin Lesions, No rash Neuro : No Weakness, No Numbness, No Paresthesias, No Loss of Consciousness, No Dizziness, No Headache Psych : Complaining of anxiety, No Depression, No SI/HI/AH/VH, No Social Issues, Heme/Lymph: No Bruising, No Bleeding,No Lymphadenopathy Endocrine : No Polyuria, No Polydipsia, No Temperature Intolerance [facility] Past Medical History Medical History Diabetes Anxiety Social History Social History Alcohol intake: never Advance Directives: No Advance Directives Information Provided: No Physical Exam 2 Vital Signs: Vital Signs: Last Vital Signs Temp 98.0 F 01/26/23 03:44 Pulse 90 01/26/23 03:44 Resp 22 H 01/26/23 03:44 BP 136/80 01/26/23 03:44 BMI result Body Mass Index 26.6 Const: Other: Appearance: Alert. Oriented X3. No acute distress. Eyes: Pupils equal, round and reactive to light. ENT: Pharynx normal. Neck: Normal inspection. Neck supple. No lymph nodes noted. No crepitus CVS: Normal heart rate and rhythm. Pulses normal. Normal S1 and S2 Respiratory: No respiratory distress. Breath sounds normal. No Wheezing. No rales Abdomen: Soft and nontender. No rigidity. No distention. Skin: Skin warm and dry. Normal skin color. Normal skin turgor. Extremities: No lower extremity edema. No Lacerations. No Rash Neuro: Oriented X 3. No motor deficit. No sensory deficit. Moving all extremities. No slurred speech. CN 2 through 12 grossly intact Psych: calm, cooperative, normal affect Medical Decision Making Medical Decision Making [facility] Narrative: Interpretation of labs: Hematology at baseline, chemistry at baseline, troponin negative. -my interpretation EKG: Normal sinus rhythm, heart rate 75, no ST segment depression or elevation, no T-wave inversion, QTC 448 Differential Diagnosis Differential Diagnoses: The differential diagnosis associated with the presentation includes (Anxiety, ACS, dyspnea) Admission/Observation Consideration of admission/observation: Escalation of care including admission/observation considered (Given the patient's initial presentation, admission was considered.) Lab Data [facility] Lab Attestation statement: I reviewed the patient's lab results. 01/26/23 04:10 01/26/23 04:10 Labs: Lab Results 01/26/23 01/26/23 Range/Units 04:09 04:10 WBC 4.1 L (4.8-10.8) X10*3/uL RBC 4.99 (4.60-5.80) X10*6/uL Hgb 14.2 (14.0-18.0) g/dl Hct 41.7 L (42.0-52.0) % MCV 83.6 (80.0-98.0) fL MCH 28.5 (27.0-33.0) pg MCHC 34.1 (31.0-36.0) g/dl RDW 12.7 (11.0-16.0) % Plt Count 188 (160-400) X10*3/uL MPV 9.3 L (9.4-12.4) fL Immature Gran % (Auto) 1.2 H (0.0-0.4) % Neut % (Auto) 50.2 (45-73) % Lymph % (Auto) 35.6 (20-40) % [place] % (Auto) 9.2 (2-11) % Eos % (Auto) 3.1 (0-4) % Baso % (Auto) 0.7 (0-2) % Lymph # (Auto) 1.5 (1.2-4.9) X10*3/uL [place] # (Auto) 0.4 (0.1-1.2) X10*3/uL Eos # (Auto) 0.1 (0.0-0.4) X10*3/uL Baso # (Auto) 0.0 (0.0-0.2) X10*3/uL Abs Immat Gran (auto) 0.05 H (0.00-0.03) X10*3/uL Absolute Neuts (auto) 2.1 (2.0-8.3) x10*3/uL Absolute Nucleated RBC 0.000 (0.0-0.012) X10*3/uL Nucleated RBC % (auto) 0.0 (0.0-0.2) /100WBC Sodium 139 (135-145) mmol/L Potassium 3.7 (3.3-5.1) mmol/L Chloride 107 (96-108) mmol/L Carbon Dioxide 25 (22-29) mmol/L Anion Gap 11 L (12-20) BUN 18 H (9-16) mg/dL Creatinine 0.84 (0.5-1.4) mg/dL Estim Creat Clear Calc 90.0 Estimated GFR > 60 Random Glucose 218 H (60-115) mg/dL Calcium 8.8 D (8.4-10.2) mg/dL Total Bilirubin 0.4 (0.0-1.0) mg/dL AST 18 (5-37) U/L ALT 6 (0-40) U/L Alkaline Phosphatase 62 (39-117) U/L Ammonia 30 (13-55) umol/L Troponin I High Sens < 2.7 (<3.5-35.0) ng/L Total Protein 5.9 L (6.5-8.0) g/dL Albumin 3.8 (3.5-5.0) g/dL Independent Interpretation I performed an independent interpretation of an: EKG Critical Care Time Critical Care Time Critical Care Time: Yes Total Critical Care Time: 30 Attestation: I have personally provided critical care time. Time includes review of lab data, radiology results, discussion with consultants, and monitoring for potential decompensation. Intervention performed as documented. Discharge Plan Discharge Clinical Impression: Anxiety Patient Disposition: Home, Self-Care Instructions: Anxiety (ED) Additional Instructions: Please follow-up with your primary care physician tomorrow. If you have any worsening or new symptoms, please return to the emergency room or call 911 Prescriptions: No Action doxycycline monohydrate [Monodox] 100 mg capsule 100 mg PO BID Qty: 14 0RF
== END 2023-01-26 05:48 | disposition home or self-care (01) ==
PROVIDERS: Emergency Provider Emergency Medicine
DX: R06.02 Shortness of breath (principal); F41.1 Generalized anxiety disorder; F43.0 Acute stress reaction; R07.89 Other chest pain; Z79.899 Other long term (current) drug therapy
CPT/HCPCS: 36415; 80053; 82140; 84484; 85025; 93005; 99284

== ENCOUNTER 2023-04-10 03:05 | Emergency (ER) | payer MEDICARE, SELFPAY ==
--- NOTE | 2023-04-10 | ECG_ITS ---
Test Reason : palpatations Blood Pressure : / mmHG Vent. Rate : 085 BPM Atrial Rate : 085 BPM P-R Int : 144 ms QRS Dur : 104 ms QT Int : 378 ms P-R-T Axes : 039 -17 030 degrees QTc Int : 449 ms Normal sinus rhythm Incomplete right bundle branch block Borderline ECG When compared with ECG of 26-JAN-2023 04:29, No significant change was found Referred By: Generic ED Physician Electronically Signed By:JOSEPH CAMPOVERDE MD
[2023-04-10 03:15] VITALS: BP 173/102; PULSE 86; RESP 16; TEMP 36.7; O2SAT 97; BMI 26.6
[2023-04-10 03:24] LABS: MANUAL DIFF FLAG NO
[2023-04-10 03:25] LABS: Basophils Percent Auto 0.7 % (0-2); Eosinophils Absolute Auto 0.2 X10*3/uL (0.0-0.4); Eosinophils Percent Auto 3.1 % (0-4); Hematocrit 44.6 % (42.0-52.0); Imm Gran Abs Auto 0.05 X10*3/uL (0.00-0.03); Imm Gran Pct Auto 0.8 % (0.0-0.4); Lymphocytes Absolute Auto 1.9 X10*3/uL (1.2-4.9); Lymphocytes Percent Auto 30.7 % (20-40); Mean Corpuscular HGB Conc 33.6 g/dl (31.0-36.0); Mean Corpuscular Hemoglobin 28.1 pg (27.0-33.0); Mean Corpuscular Volume 83.7 fL (80.0-98.0); Mean Platelet Volume 9.1 fL (9.4-12.4); Monocytes Absolute Auto 0.6 X10*3/uL (0.1-1.2); Monocytes Percent Auto 9.3 % (2-11); Neutrophils Absolute Auto 3.4 x10*3/uL (2.0-8.3); Neutrophils Percent Auto 55.4 % (45-73); Platelet Count 222 X10*3/uL (160-400); Red Blood Count 5.33 X10*6/uL (4.60-5.80); Red Cell Distribution Width 12.2 % (11.0-16.0); White Blood Count 6.1 X10*3/uL (4.8-10.8)
[2023-04-10 03:41] LABS: Alanine Aminotransferase 9 U/L (0-40); Albumin Level 4.1 g/dL (3.5-5.0); Alkaline Phosphatase 76 U/L (39-117); Anion Gap 13 (12-20); Aspartate Amino Transferase 23 U/L (5-37); Bilirubin Direct 0.1 mg/dL (0.0-0.5); Bilirubin Total 0.3 mg/dL (0.0-1.0); Blood Urea Nitrogen 15 mg/dL (9-16); Calcium 9.5 mg/dL (8.4-10.2); Carbon Dioxide 28 mmol/L (22-29); Chloride 105 mmol/L (96-108); Estimated Glomerular Filt Rate > 60; Glucose Random 220 mg/dL (60-115); Potassium 3.7 mmol/L (3.3-5.1); Sodium 142 mmol/L (135-145); Total Protein 6.8 g/dL (6.5-8.0)
[2023-04-10 03:49] LABS: COVID-19 Test Negative (Negative); IDNOW Serial# 08D9AD1C; IDNOW Serial# 152EDE1D; Influenza A Negative (Negative); Influenza B2 Negative (Negative); Troponin-I High Sensitivity < 2.7 ng/L (<3.5-35.0)
== END 2023-04-10 05:56 | disposition left against medical advice (07) ==
PROVIDERS: Emergency Provider Emergency Medicine
DX: R00.2 Palpitations (principal); Z11.52 Encounter for screening for COVID-19
CPT/HCPCS: 80048; 80076; 84484; 85025; 87502; 87635; 93005; 99283

== ENCOUNTER → 2023-04-10 03:10 | Outpatient (BNV) | payer MEDICARE, SELFPAY | PROVIDERS: Emergency Provider Emergency Medicine; Visit Provider Internal Medicine Cardiovascular Disease | DX: R00.2 Palpitations (principal) | CPT/HCPCS: 93010 ==

== ENCOUNTER 2023-07-23 14:33 | Emergency (ER) | payer MEDICARE, SELFPAY ==
--- NOTE | ~2023-07-23 | XR_ITS ---
EXAMINATION: XR LUMBOSACRAL SPINE CLINICAL INFORMATION: Low back pain radiating down legs COMPARISON: None available. TECHNIQUE: Three views of the lumbosacral spine. FINDINGS: Degenerative changes are present throughout the spine with disc space narrowing at all levels with some sparing at L3-L4. There is grade 1 anterolisthesis of L4 upon L5. No fractures or bony destructive lesions are seen. Degenerative changes are seen at the L5-S1 facet joints. Phleboliths are noted in the pelvis. XR/XR lumbar spine 2-3V IMPRESSION: Degenerative changes throughout the spine with grade 1 anterolisthesis of L4 upon L5.
[2023-07-23 15:33] VITALS: BP 119/78; BP 146/84; PULSE 72; PULSE 76; RESP 16; TEMP 36.9; O2SAT 100; BMI 26.6
--- NOTE | 2023-07-23 15:34 | ED_ITS ---
HPI - General Adult General Chief complaint: Back Pain/Injury Stated complaint: WEAK,ANXIETY ATTACK,MULTI HEALING WOUNDS PER EMS Time Seen by Provider: 07/23/23 21:54 Source: patient Mode of arrival: EMS Limitations: no limitations History of Present Illness HPI narrative: Patient's history of anxiety with multiple nonhealing wounds in lower extremities more than 6 months on minocycline comes here for multiple complaints with requesting follow with wound clinic no fever no chills Related Data Allergies Allergy/AdvReac Type Severity Reaction Status Date / Time divalproex sodium Allergy Severe INCRESED Verified 07/24/23 02:04 [From DEPAKOTE] AMMONIA LEVELS haloperidol [From Haldol] Allergy Confusion Verified 07/24/23 02:04 SEAFOOD Allergy Severe facial Uncoded 07/24/23 02:04 swelling; difficulty breathing Review of Systems 2 Review of Systems: Yes all other systems are reviewed and are negative [facility] Past Medical History Medical History Diabetes Anxiety Social History Social History Alcohol intake: never Smoked in Last 30 Days: No Use of substances other than those prescribed or required for medical reasons: No Advance Directives: No Physical Exam ED Vital Signs: Vital Signs - 24 hr 07/23/23 20:58 07/24/23 00:18 Temperature 97.8 F 97.9 F Pulse Rate 72 70 Respiratory Rate 18 16 Blood Pressure 137/82 130/65 Pulse Oximetry 99 99 Oxygen Delivery Method Room Air Room Air BMI result Body Mass Index 26.6 Appearance: Alert. Oriented X3. No acute distress. Eyes: PERRLA, No Nystagmus ENT: Pharynx normal. Oral Mucosa moist Neck: Normal inspection. Neck supple. CVS: Normal heart rate and rhythm. Pulses normal. Respiratory: No respiratory distress. Equal air entry bilateral, no wheezing/rales/rhonchi Abdomen: Soft and nontender. Bowel sounds are present, no mass palpable, no CVA tenderness Skin: Skin warm and dry. Normal skin color. Normal skin turgor. Extremities: No lower extremity edema. No calf tenderness multiple nonhealing wounds in the lower extremities no significant signs of infection Neuro: Oriented X 3. No motor deficit. No sensory deficit.No cerebellar signs , cranial nerves II-XII intact Course Course Course Narrative: This is a rapid medical exam performed by Guilherme Nelson NP: Additional HPI, ROS, PE not included below will be deferred to primary provider. Patient is a 63-year-old male with history of DM, anxiety presenting to the ED with complaints of abdominal pain/bloating for 2-3 days, bleeding from leg wounds while in the shower this morning. Nausea and diarrhea, felt lightheaded this morning and almost fell. Lower back pain radiating down both legs. EMS reported patient was very anxious on their arrival and calmed down en route to the ED. Denies fall or other trauma. Plan: labs, UA, viral swabs, ekg Medications Administered Discontinued Medications Generic Name Dose Route Start Last Admin Trade Name Freq PRN Reason Stop Dose Admin Doxycycline Monohydrate 100 mg 07/23/23 23:50 07/24/23 00:18 Doxycycline Monohydrate 100 Mg Capsule PO 07/23/23 23:51 Not Given ONCE ONE Medical Decision Making Medical Decision Making [facility] Narrative: Patient with chronic anxiety with history of picking on the skin likely the cause for the chronic wounds will advised to continue minocycline follow with wound clinic Lab Data [facility] Lab Attestation statement: I reviewed the patient's lab results. 07/23/23 16:03 07/23/23 16:03 Labs: Lab Results 07/23/23 Range/Units 16:03 WBC 5.7 (4.8-10.8) X10*3/uL RBC 3.94 L D (4.60-5.80) X10*6/uL Hgb 9.9 L D (14.0-18.0) g/dl Hct 31.9 L D (42.0-52.0) % MCV 81.0 (80.0-98.0) fL MCH 25.1 L (27.0-33.0) pg MCHC 31.0 (31.0-36.0) g/dl RDW 13.5 (11.0-16.0) % Plt Count 291 D (160-400) X10*3/uL MPV 9.1 L (9.4-12.4) fL Immature Gran % (Auto) 0.9 H (0.0-0.4) % Neut % (Auto) 68.2 (45-73) % Lymph % (Auto) 16.3 L (20-40) % Jennings % (Auto) 9.7 (2-11) % Eos % (Auto) 4.2 H (0-4) % Baso % (Auto) 0.7 (0-2) % Lymph # (Auto) 0.9 L (1.2-4.9) X10*3/uL Jennings # (Auto) 0.6 (0.1-1.2) X10*3/uL Eos # (Auto) 0.2 (0.0-0.4) X10*3/uL Baso # (Auto) 0.0 (0.0-0.2) X10*3/uL Abs Immat Gran (auto) 0.05 H (0.00-0.03) X10*3/uL Absolute Neuts (auto) 3.9 (2.0-8.3) x10*3/uL Absolute Nucleated RBC 0.000 (0.0-0.012) X10*3/uL Nucleated RBC % (auto) 0.0 (0.0-0.2) /100WBC PT 12.3 (11.1-13.3) SEC INR 1.0 (0.9-1.1) Sodium 143 (135-145) mmol/L Potassium 3.7 (3.3-5.1) mmol/L Chloride 110 H (96-108) mmol/L Carbon Dioxide 25 (22-29) mmol/L Anion Gap 12 (12-20) BUN 13 (9-16) mg/dL Creatinine 0.96 (0.5-1.4) mg/dL Estim Creat Clear Calc 78.7 Estimated GFR > 60 Random Glucose 157 H (60-115) mg/dL Calcium 9.1 (8.4-10.2) mg/dL Total Bilirubin 0.3 (0.0-1.0) mg/dL AST 22 (5-37) U/L ALT 5 (0-40) U/L Alkaline Phosphatase 62 (39-117) U/L Troponin I High Sens 3.2 (<3.5-35.0) ng/L Total Protein 6.2 L (6.5-8.0) g/dL Albumin 3.7 (3.5-5.0) g/dL Influenza Type A (PCR) NEGATIVE (Negative) Influenza Type B (PCR) NEGATIVE (Negative) RSV RNA Qual (PCR) NEGATIVE (Negative) SARS-CoV-2 RNA (RT-PCR) NEGATIVE (Negative) Discharge Plan Discharge Clinical Impression: Chronic wound Patient Disposition: Home, Self-Care Instructions: Chronic Wounds (ED) Additional Instructions: Local care as advised Take antibiotic as prescribed by your pcp Follow-up with wound clinic Prescriptions: Discontinued doxycycline monohydrate [Monodox] 100 mg capsule 100 mg PO BID Qty: 14 0RF Referrals: Raisa Reyes MD [Physician] - 1 week Interventions: ED Discharge Assessment Last Done: 07/24/23 00:18 Discharge Date/Time: 07/24/23 00:19 Print Language: [place] Citizen
--- NOTE | 2023-07-23 15:36 | ECG_ITS ---
Test Reason : DIZZINESS Blood Pressure : / mmHG Vent. Rate : 068 BPM Atrial Rate : 068 BPM P-R Int : 174 ms QRS Dur : 096 ms QT Int : 396 ms P-R-T Axes : 052 016 037 degrees QTc Int : 421 ms Normal sinus rhythm Incomplete right bundle branch block Borderline ECG When compared with ECG of 10-APR-2023 03:10, No significant change was found Referred By: Jennifer Nelson Electronically Signed By:JOSEPH CAMPOVERDE MD
[2023-07-23 16:08] LABS: MANUAL DIFF FLAG NO
[2023-07-23 16:09] LABS: Basophils Percent Auto 0.7 % (0-2); Eosinophils Absolute Auto 0.2 X10*3/uL (0.0-0.4); Eosinophils Percent Auto 4.2 % (0-4); Hematocrit 31.9 % (42.0-52.0); Hemoglobin 9.9 g/dl (14.0-18.0); Imm Gran Abs Auto 0.05 X10*3/uL (0.00-0.03); Imm Gran Pct Auto 0.9 % (0.0-0.4); Lymphocytes Absolute Auto 0.9 X10*3/uL (1.2-4.9); Lymphocytes Percent Auto 16.3 % (20-40); Mean Corpuscular Hemoglobin 25.1 pg (27.0-33.0); Mean Platelet Volume 9.1 fL (9.4-12.4); Monocytes Absolute Auto 0.6 X10*3/uL (0.1-1.2); Monocytes Percent Auto 9.7 % (2-11); Neutrophils Absolute Auto 3.9 x10*3/uL (2.0-8.3); Neutrophils Percent Auto 68.2 % (45-73); Platelet Count 291 X10*3/uL (160-400); Red Blood Count 3.94 X10*6/uL (4.60-5.80); Red Cell Distribution Width 13.5 % (11.0-16.0); White Blood Count 5.7 X10*3/uL (4.8-10.8)
[2023-07-23 16:14] LABS: Prothrombin Time 12.3 SEC (11.1-13.3)
[2023-07-23 16:22] LABS: Alanine Aminotransferase 5 U/L (0-40); Albumin Level 3.7 g/dL (3.5-5.0); Alkaline Phosphatase 62 U/L (39-117); Anion Gap 12 (12-20); Aspartate Amino Transferase 22 U/L (5-37); Bilirubin Total 0.3 mg/dL (0.0-1.0); Blood Urea Nitrogen 13 mg/dL (9-16); Calcium 9.1 mg/dL (8.4-10.2); Carbon Dioxide 25 mmol/L (22-29); Chloride 110 mmol/L (96-108); Creatinine Clr Calc Pharmacy 78.7; Estimated Glomerular Filt Rate > 60; Glucose Random 157 mg/dL (60-115); Potassium 3.7 mmol/L (3.3-5.1); Sodium 143 mmol/L (135-145); Total Protein 6.2 g/dL (6.5-8.0)
[2023-07-23 16:30] LABS: Troponin-I High Sensitivity 3.2 ng/L (<3.5-35.0)
[2023-07-23 17:14] LABS: Influenza A PCR NEGATIVE (Negative); Influenza B PCR NEGATIVE (Negative); Resp Syncy Virus RNA Qual PCR NEGATIVE (Negative); SARS COV2 PCR INHOUSE NEGATIVE (Negative)
[2023-07-23 20:58] VITALS: BP 137/82; PULSE 72; RESP 18; TEMP 36.6; O2SAT 99
--- OUTSIDE RECORDS SUMMARY | 2023-07-23 22:07 | XMS_ITS | Continuity of Care Document ---
Author Organization [facility] Address [address] [place] [address]- Care Team Providers Care Product Marketing Manager Name Role Phone Not on Staff, PCP Primary Care Physician Unavail able Encounter [facility] Date(s): 11/21/22 - 11/21/[address] [address]- Discharge Disposition: A-D/C Home Attending Physician: Suleiman MONSIVAIS, Lacie Freitas Admitting Physician: Lacie Bearden MD Referring Physician: Not on Staff, Referring [...] EST, Tablet Start Date: 02/27/18 Status: Ordered atenolol 25 mg oral tablet 50 mg, 2, tablet, By Mouth, Daily, # 60 tablet, Refills 0, Maintenance, 11/21/22 4:30:00 EDT, Partial fill upon patient request if the prescription is for a schedule II opioid drug. Start Date: 11/21/22 Status: Ordered Crestor 40 mg oral tablet 1 tablet = 40 mg, By Mouth, Daily at bedtime, 0 Refills, Maintenance, 05/06/18 16:33:14 EST Start Date: 05/06/18 Status: Ordered Dextroamphetamine 5 mg, By Mouth, 2 times a day, Refills 0, Tot. Refills 0, Maintenance, 03/10/22 16:29:00 EST, Partial fill upon patient request if the prescription is for a schedule II opioid drug. Start Date: 03/10/22 Status: Ordered Levemir Inj = 6 units, Subcutaneous Infusion, 2 times a day, 0 Refills, Maintenance, 11/21/22 4:31:00 EDT, Partial fill upon patient request if the prescription is for a schedule II opioid drug. Start Date: 11/21/22 Status: Ordered lisinopril 20 mg oral tablet 1 tablet = 20 mg, By Mouth, Daily, # 30 tablet, 0 Refills, Maintenance, 06/10/14 15:35:51, Tablet Start Date: 06/10/14 Status: Ordered Methylphenidate 0 Refills, Maintenance, 03/10/22 16:29:00 EST, Partial fill upon patient request if the prescription is for a schedule II opioid drug. Start Date: 03/10/22 Status: Ordered Proventil HFA 90 mcg/inh inhalation [...] [Reference Range]: 1 2 Height 175 cm (11/21/22 4:20 AM) 175 cm (11/21/22 4:19 AM) Weight 87.2 kg (11/21/22 4:20 AM) 87.2 kg (11/21/22 4:19 AM) Oxygen Saturation [94-100 %] 100 % (11/21/22 4:19 AM) Pulse Rate [55-90 bpm] 80 bpm (11/21/22 4:19 AM) Body Mass Index [18.5-24.99 kg/m2] 28.47 kg/m2 *H* (11/21/22 4: AM) Blood Pressure [90-138/55-84 mm Hg] 137/ 91mm Hg (11/21/22 4:19 AM) Respiratory Rate [16-30 br/min] 16 br/mi n (11/21/22: AM) Temperature [96.8-100.4 DegF] 97.7 DegF (11/21/22:19 AM) Mode of Delivery (Oxygen) Room air (11/21/22: AM) Temperature Route Oral (11/21/22: AM) Dry Weight 87.2 kg (11/21/22 4:20 AM) 87.2 kg (11/21/22 4:19 AM) Weight Obtained Via Standing scale (11/21/22 4:19 AM) Dry Weight Obtained Via Standing scale (11/21/22: AM) Social History Social History Type Response Smoking Status Never smoker entered on: 06/10/14 Sex Note * Suleiman MONSIVAIS, Lacie Freitas: PERFORM Event Display: Patient Education Leaflets Authored Date: [id number] Diarrhea with Uncertain Cause (Adult) ?? [id number] Diarrhea with Uncertain Cause (Adult) Diarrhea is when stools are loose and watery. This can be caused by: ??? Viral infections ??? Bacterial infections ??? Food poisoning ??? Parasites ??? Irritable bowel syndrome (IBS) ??? Inflammatory bowel diseases such as ulcerative colitis, Crohn's disease, and celiac disease ??? Food intolerance, such as to lactose, the sugar found in milk and milk products ??? Reaction to medicines like antibiotics, laxatives, cancer medicines, and antacids Along with diarrhea, you may also have: ??? Abdominal pain and cramping ??? Nausea and vomiting ??? Loss of bowel control ??? Fever and chills ??? Bloody stools In some cases, antibiotics may help to treat diarrhea. You may have a stool sample test which is done to see what is causing your diarrhea, and if antibiotics will help treat it. The results of a stool sample test may take up to 2 days. The healthcare provider may not give you antibiotics until they have the stool test results. Diarrhea can cause dehydration. This is the loss of too much water and other fluids from the body. When this occurs, you must replace those body fluids. This can be done with oral rehydration solutions. Oral rehydration solutions are available at drugstores and grocery stores without a prescription. Sports drinks are not the best choice if you are very dehydrated. They usually have too much sugarand not enough electrolytes. Home care Follow all instructions given by your healthcare provider. Rest at home for the next 24 hours, or until you feel better. Avoid caffeine, tobacco, and alcohol. These can make diarrhea, cramping, and pain worse. If taking medicines: ??? Qyoc-cma-tskvjoq nausea and diarrhea medicines are generally OK unless you experience fever or blood in the stool. Check with your healthcare provider first in those circumstances. ??? You may use acetaminophen or nonsteroidal anti-inflammatory drugs (NSAIDs) such as ibuprofen or naproxen to reduce pain and fever. Don???t use these if you have chronic liver or kidney disease, or ever had a stomach ulcer or gastrointestinal??bleeding. Don't use NSAID medicines if you are already taking one for another condition (like arthritis) or are on daily aspirin therapy (such as for heart disease or after a stroke). Talk with your healthcare provider first. ??? If antibiotics were prescribed, be sure you take them until they are finished. Don???t stop taking them even when you feel better. Antibiotics must be taken exactly as prescribed. To prevent the spread of illness: ??? Remember that washing with soap and clean, running water and using alcohol- based geometry professor is the best way to prevent the spread of infection. Dry your hands with a single-use towel (like a papertowel). ??? Clean the toilet after each use. ??? Wash your hands before eating. ??? Wash your handsbefore and after preparing food. Keep in mind that people with diarrhea or vomiting should not prepare food for others. ??? Wash your hands after using cutting boards, counter tops, and knives that have been in contact with raw foods. ??? Wash and then peel fruits and vegetables. ??? Keep uncooked meats away from cooked and savnq-db-eau foods. ??? Use a food thermometer when cooking. Cook poultryto at least 165??F (74??C). Cook ground meat (beef, veal, pork, bonilla) to at least 160??F (71??C). Cook fresh beef, veal, bonilla, and pork to at least 145??F (63??C). ??? Don???t eat raw or undercooked eggs (poached or jerry side up), poultry, meat, or unpasteurized milk and juices. Food and drinks The main goal while treating vomiting or diarrhea is to prevent dehydration. This is done by takingsmall amounts of liquids often. ??? Keep in mind that liquids are more important than food right now. ??? Drink only small amounts of liquids at a time. ??? Don???t force yourself to eat, especially if you are??having cramping, vomiting, or diarrhea. Don???t eat large amounts at a time, even if you are hungry. ??? If you eat, avoid fatty, greasy, spicy, or fried foods. ??? Don???t eat dairy foods or drink milk if you have diarrhea.??These can make??diarrhea worse. During the first 24 hours you can try: ??? Oral rehydration solutions.?? Sports drinks may be used if you are not too dehydrated and are otherwise healthy. ??? Soft drinks without caffeine ??? Radha jazmin ??? Water (plain or flavored) ??? Decaf tea or coffee ??? Clear broth, consomm??, or bouillon ??? Gelatin, ice pops, or frozen fruit juice bars The second 24 hours, if you are feeling better, you can add: ??? Hot cereal, plain toast, bread, rolls, or crackers ??? Plain noodles, rice, mashed potatoes, chicken noodle soup, or rice soup ??? Applesauce, unsweetened canned fruit (no pineapple) ??? Bananas As you recover: ??? Limit fat intake to less than 15 grams per day. Don???t eat margarine, butter, oils, mayonnaise, sauces, gravies, fried foods, peanut butter, meat, poultry, or fish. ??? Limit fiber. Don???t eat raw or cooked vegetables, fresh fruits except bananas, or bran cereals. ??? Limit caffeine and chocolate. ??? Limit dairy. ??? Don???t use spices or seasonings except salt. ??? Go backto your normal diet over time, as you feel better and your symptoms improve. ??? If the symptoms come back, go back to a simple diet or clear liquids. ?? Follow-up care Follow up with your healthcare provider, or as advised. If a stool sample was taken or cultures were done, call the healthcare provider for the results as instructed. ?? Call 911 Call 911 if you have any of these symptoms: ??? Trouble breathing ??? Confusion ??? Extreme drowsiness or trouble walking ??? Loss of consciousness ??? Rapid heart rate ??? Chest pain ??? Stiff neck ??? Seizure ?? When to get medical advice Call your healthcare provider right away if any of these occur: ??? Abdominal pain that gets worse ??? Constant lower right abdominal pain ??? Continued vomiting and inability to keep liquids down ??? Diarrhea more than 5 times a day ??? Blood in vomit or stool ??? Dark urine or no urine for 8 hours, dry mouth and tongue, tiredness, weakness, or dizziness ??? Drowsiness ??? New rash ??? You don???t get better in 2 to 3 days ??? Fever of 100.4??F (38??C) or higher, or as advised by your provider ?? Last Reviewed Date: 2021 ?? [id number] [employer]. All rights reserved. This information is not intended as a substitute for professional medical care. Always follow your healthcare professional's instructions. ?? Patient Care team information Care Team Personnel Name: Padmini Khan RN Position: [facility] RN Member Role: Primary Care Nurse Name: Chelle Reese RN Position: [facility] RN Member Role: Primary Care Nurse Name: Not on Staff, PCP Position: [facility] Physician (General Medicine) Member Role: PCP Name: Gen Doe RN Position: [facility] ED RN W/OE and Tasks Member Role: Patient Care Provider Name: Suleiman MONSIVAIS, Lacie Freitas Position: [facility] ED Medicine MD Member Role: Admitting Physician Address: Address: [address] [place] [id number]- Care Team Related Persons Name: NAHID MENDOZA Address: home [address] [place] [address] Name: VIOLET PEACOCK Address: home [address] [place] [address]
--- OUTSIDE RECORDS SUMMARY | 2023-07-23 22:08 | XMS_ITS | Continuity of Care Document ---
Author Organization [facility] Address [address] [place] [address]- Care Team Providers Care Chief Librarian Circulation Department Name Role Phone Not on Staff, PCP Primary Care Physician Unavail able Encounter [facility] Date(s): 11/20/22 - 11/20/[address] [address]- Discharge Disposition: A-D/C Walkout Attending Physician: Not on Staff, Attending MD Admitting Physician: Not on Staff, Admitting MD Referring Physician: Not on Staff, Referring [...] recent to oldest [Reference Range]: 1 Height 175 cm (11/20/22 5:18 PM) Weight 86.5 kg (11/20/22 5:18 PM) Oxygen Saturation [94-100 %] 98 % (11/20/22 5:18 PM) Pulse Rate [55-90 bpm] 98 bpm *H* (11/20/22 5:18 PM) Blood Pressure [90-138/55-84 mm Hg] 157/ 98mm Hg *H* (11/20/22 5:18 PM) Respiratory Rate [16-30 br/min] 18 br/mi n (11/20/22 5:18 PM) Temperature [96.8-100.4 DegF] 98.6 DegF (11/20/22 5:18 PM) Temperature Route Temporal (11/20/22 5:18 PM) Dry Weight 86.5 kg (11/20/22 5:18 PM) Dry Weight Obtained Via Standing scale (11/20/22 5:18 PM) Social History Social History Type Response Smoking Status Never smoker entered on: 06/10/14 Sex Patient Care team information Care Team Personnel Name: Padmini Khan RN Position: [facility] RN Member Role: Primary Care Nurse Name: Chelle Reese RN Position: [facility] RN Member Role: Primary Care Nurse Name: Not on Staff, PCP Position: [facility] Physician (General Medicine) Member Role: PCP Care Team Related Persons Name: NAHID MENDOZA Address: home [address] [place] [address] Name: VIOLET PEACOCK Address: home [address] [place] [address]
[2023-07-24 00:18] VITALS: BP 130/65; PULSE 70; RESP 16; TEMP 36.6; O2SAT 99
== END 2023-07-24 00:19 | disposition home or self-care (01) ==
PROVIDERS: Registered Nurse Emergency; Emergency Provider Internal Medicine
DX: L98.499 Non-pressure chronic ulcer of skin of other sites with unspecified severity (principal); F41.9 Anxiety disorder, unspecified; E11.9 Type 2 diabetes mellitus without complications; Z03.818 Encounter for observation for suspected exposure to other biological agents ruled out
CPT/HCPCS: 0241U; 72100; 80053; 84484; 85025; 85610; 87070; 87147; 87205; 93005; 99283

== ENCOUNTER → 2023-07-23 15:36 | Outpatient (BNV) | payer MEDICARE, SELFPAY | PROVIDERS: Emergency Provider Internal Medicine; Visit Provider Internal Medicine Cardiovascular Disease | DX: R42 Dizziness and giddiness (principal) | CPT/HCPCS: 93010 ==

== ENCOUNTER 2023-07-24 01:45 | Emergency (ER) | payer MEDICARE, SELFPAY ==
[2023-07-24 02:01] VITALS: BP 132/85; PULSE 71; RESP 18; TEMP 37.1; O2SAT 98; BMI 26.7
[2023-07-24 02:13] LABS: Glucose, Whole Blood 190 mg/dL (60-115)
[2023-07-24 03:38] LABS: Glucose, Whole Blood 172 mg/dL (60-115)
--- NOTE | 2023-07-24 03:52 | PC.NURSE ---
pt comfortable poc rechecked and wnl. plan is for discharge. provider made aware. skin pink warm and dry no s/s of distress,
--- NOTE | 2023-07-24 04:05 | ED_ITS ---
HPI - General Adult General Chief complaint: General Medical Stated complaint: blood sugar check Time Seen by Provider: 07/24/23 04:05 Source: patient Mode of arrival: ambulatory Limitations: no limitations History of Present Illness HPI narrative: Patient was in the waiting room, waiting to be picked up. Patient states that he wanted to get his blood glucose checked because he is diabetic. Patient is asymptomatic. Related Data Allergies Allergy/AdvReac Type Severity Reaction Status Date / Time divalproex sodium Allergy Severe INCRESED Verified 07/24/23 02:04 [From DEPAKOTE] AMMONIA LEVELS haloperidol [From Haldol] Allergy Confusion Verified 07/24/23 02:04 SEAFOOD Allergy Severe facial Uncoded 07/24/23 02:04 swelling; difficulty breathing Review of Systems Review of Systems: Constitutional : No Weight loss, No Fever, No Chills, No Night Sweats, No Fatigue, No Malaise ENT/Mouth : No Hearing loss, No Ear Pain, No Nasal Congestion, No Sinus Pain, No Hoarseness, No sore throat, No Rhinorrhea, No Swallowing Difficulty Eyes: No Eye Pain, No Swelling, No Redness, No Foreign Body, No Discharge, No Vision Changes Cardiovascular : No Chest Pain, No SOB, No Dyspnea on Exertion, No Orthopnea, No Edema, No Palpitations Respiratory : No Cough, No Sputum, No Wheezing, No Smoke Exposure, No Dyspnea Gastrointestinal : No Nausea, No Vomiting, No Diarrhea, No Constipation, No abdominal Pain, No Hematochezia, No Melena Genitourinary : no irregular bleeding, No Dysuria, No Urinary Frequency, No Hematuria, No Urinary Incontinence, No Urgency, No Flank Pain, No Urinary Flow Changes, No Hesitancy Musculoskeletal : No joint pain, No Myalgias, No Joint Swelling Skin : No Skin Lesions, No rash Neuro : No Weakness, No Numbness, No Paresthesias, No Loss of Consciousness, No Dizziness, No Headache Psych : No Anxiety/Panic, No Depression, No SI/HI/AH/VH, No Social Issues, Heme/Lymph: No Bruising, No Bleeding,No Lymphadenopathy Endocrine : No Polyuria, No Polydipsia, No Temperature Intolerance PMFSH Past Medical History Medical History Diabetes Anxiety Social History Social History (Reviewed 08/24/22 @ 00:11 by RAGHAV Meneses Alcohol intake: never Physical Exam ED Vital Signs: Vital Signs - 24 hr 07/24/23 02:01 Temperature 98.7 F Pulse Rate 71 Respiratory Rate 18 Blood Pressure 132/85 Pulse Oximetry 98 Oxygen Delivery Method Room Air BMI result Body Mass Index 26.7 Const Other: Appearance: Alert. Oriented X3. No acute distress. Eyes: Pupils equal, round and reactive to light. ENT: Pharynx normal. Neck: Normal inspection. Neck supple. No lymph nodes noted. No crepitus CVS: Normal heart rate and rhythm. Pulses normal. Normal S1 and S2 Respiratory: No respiratory distress. Breath sounds normal. No Wheezing. No rales Abdomen: Soft and nontender. No rigidity. No distention. Skin: Skin warm and dry. Normal skin color. Normal skin turgor. Extremities: Ambulatory Neuro: Oriented X 3. No motor deficit. No sensory deficit. Moving all extremities. No slurred speech. CN 2 through 12 grossly intact Psych: calm, cooperative, normal affect Medical Decision Making Medical Decision Making MDM Narrative: Patient's glucose was checked twice, 1st glucose was 190, 2nd glucose was 172 Lab Data Labs: Lab Results 07/24/23 07/24/23 Range/Units 02:00 03:34 POC Glucose 190 H 172 H (60-115) mg/dL Discharge Plan Discharge Clinical Impression: Normal exam Patient Disposition: Home, Self-Care Instructions: Diabetes and Nutrition (ED) Additional Instructions: Please follow-up with your primary care physician tomorrow. If you have any worsening or new symptoms, please return to the emergency room or call 911 Print Language: Cymraes
[2023-07-24 04:38] VITALS: BP 142/81; PULSE 71; RESP 16; TEMP 36.6; O2SAT 100
[2023-07-24 04:39] VITALS: BP 142/81; PULSE 71; RESP 16; TEMP 36.6; O2SAT 100
== END 2023-07-24 04:40 | disposition home or self-care (01) ==
PROVIDERS: Emergency Provider Emergency Medicine
DX: Z03.89 Encounter for observation for other suspected diseases and conditions ruled out (principal); E11.9 Type 2 diabetes mellitus without complications
CPT/HCPCS: 82947; 99282; 99284

== ENCOUNTER 2023-07-25 11:35 | Emergency (ER) | payer MEDICARE, SELFPAY ==
--- NOTE | ~2023-07-25 | CT_ITS ---
EXAMINATION: CT LUMBAR SPINE WITHOUT CONTRAST CLINICAL INFORMATION: Low back pain radiating down the legs. COMPARISON: Radiographs of the lumbar spine from 07/23/2023. TECHNIQUE: Noncontrast multidetector CT imaging examination of the lumbar spine is performed. Axial images and multiplanar reformatted images are reviewed. This CT examination was performed using dose optimization techniques as appropriate, variously including the following: *Automated exposure control *Adjustment of mA and/or kV according to patient size (this includes techniques or standardized protocols for targeted exams where dose is matched to indication/reason for exam; i.e. extremities or head) *Use of iterative reconstruction technique DLP; 513 mGy-cm FINDINGS: There are five nonrib-bearing vertebra of the lumbar spine. The vertebral body heights are maintained. The anterior and posterior elements are intact. No evidence of compression fractures or pars interarticularis defects. No paraspinal fluid collection. Findings at individual levels include the following: T12-L1: Unremarkable. L1-L2: Unremarkable. L2-L3: Mild loss of disc height, vacuum disc phenomenon, disc bulge and moderate bilateral facet arthropathy. Multifactorial mild spinal canal stenosis. Moderate left and mild right neural foraminal stenosis. L3-L4: Although disc height is maintained, there is broad disc bulge, mild facet arthropathy and ligamentum flavum hypertrophy resulting in multifactorial mild spinal canal stenosis. Bulging disc and anterior facet osteophytes cause moderate right neural foraminal stenosis. There is mild left neural foraminal stenosis. L4-5: There is narrowing of the disc space, vacuum disc phenomenon and severe facet arthropathy (as manifest by presence of prominent osteophytes and subchondral cystic changes at both facet joints) along with ligamentum flavum hypertrophy. There is 0.5 cm of grade 1 anterolisthesis of L4 on L5. There is multifactorial severe spinal canal stenosis. Bulging disc encroaches upon each neural foramen and appears to impinge upon exiting L4 nerve roots. Also, there is a 2.3 x 1.7 x 1.5 cm mass of the left neural foramen along the course of the left L4 nerve root that has density of 48 Hounsfield units on these noncontrast images and causes chronic remodeling/scalloping of surrounding bone associated enlargement of the foramen. This is compatible with a neurogenic tumor. It does not have a cystic appearance. It could be further characterized on an MRI of the lumbar spine without and with intravenous contrast. L5-S1: Disc bulge, severe facet arthropathy (right worse than left) and 0.3 cm of grade 1 anterolisthesis of L5 on S1. There is no significant spinal canal stenosis at this level. The bulging disc appears to contact the undersurface of the exiting right L5 nerve root but does not displace the nerve root. The bulging disc also encroaches upon the undersurface of the left L5 nerve root within the neural foramen. There is moderate bilateral foraminal stenosis. Sacrum and sacroiliac joints are intact. There is an anterior bridging enthesophytes of the right sacroiliac joint. CT/CT lumbar spine wo IV con IMPRESSION: * No acute osseous injury in the degenerated lumbar spine. No vertebral compression fractures. * Degenerative grade 1 anterolisthesis at L4-5 and L5-S1. * Lumbar spinal canal stenosis is worst (severe) at L4-L5. * Multilevel neural foraminal stenosis, as noted above. 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
[2023-07-25 11:46] VITALS: BP 180/90; PULSE 98; O2SAT 95
[2023-07-25 11:47] VITALS: BP 141/85; PULSE 94; RESP 18; TEMP 36.9; O2SAT 99; BMI 26.6
[2023-07-25 11:49] LABS: Glucose, Whole Blood 202 mg/dL (60-115)
--- NOTE | 2023-07-25 12:54 | ED_ITS ---
HPI - Psych General Chief Complaint: Psychiatric Symptoms Stated Complaint: WELLNESS CHECK CRISIS Time Seen by Provider: 07/25/23 12:22 Source: patient and old records reviewed Mode of arrival: ambulatory Limitations: no limitations History of Present Illness HPI Narrative: 63 yo male with PMH of chronic wounds, IDDM, anxiety, bipolar was a wellness check today for living in car and not taking his medications he tells me he has chronic wounds that he has to manage and low back pain that is worse x 3 days without trauma, no AC therapy, no IVDA and no loss of control of bowel or bladder, no saddle anesthesia. He states in June he was in [place] and they told him he had a mass on his back and told him to go back to [place] for his regular care... this seems odd. complaint: anxiety and other (chronic wounds, back pain) Onset (ago): day(s) (3) Duration: constant History of same: Yes Relieving factors: none Exacerbating factors: other Context: not taking psychiatric medications and significant life stressor Associated psychiatric symptoms: depression Associated symptoms: other (chronic back pain) Treatments prior to arrival: none Related Data Home Medications ?Medication ?Instructions ?Recorded ?Confirmed atenolol 25 mg tablet 25 mg PO DAILY 07/25/23 07/25/23 carbidopa 25 mg-levodopa 100 mg 1.5 tab PO 5XD 07/25/23 07/25/23 tablet entacapone 200 mg tablet 200 mg PO 5XD 07/25/23 07/25/23 insulin glargine 100 unit/mL 30 unit subcut BEDTIME 07/25/23 07/25/23 subcutaneous solution lisinopril 20 mg tablet 20 mg PO DAILY 07/25/23 07/25/23 lithium carbonate 150 mg capsule 450 mg PO BEDTIME 07/25/23 07/25/23 minocycline 100 mg capsule 200 mg PO DAILY 07/25/23 07/25/23 nateglinide 120 mg tablet See Rx Instructions .Route .COMPLEX 07/25/23 07/25/23 nicotine (polacrilex) 2 mg gum 2 mg buccal Q2H 07/25/23 07/25/23 (Nicorette) posaconazole 100 mg tablet,delayed 100 mg PO DAILY 07/25/23 07/25/23 release pramipexole 0.5 mg tablet 0.5 mg PO TID 07/25/23 07/25/23 rasagiline 1 mg tablet 1 mg PO Q OTHER DAY 07/25/23 07/25/23 sertraline 25 mg tablet 25 mg PO DAILY 07/25/23 07/25/23 testosterone 10 mg/0.5 4 pump topical DAILY 07/25/23 07/25/23 gram/actuation transdermal gel pump Allergies Allergy/AdvReac Type Severity Reaction Status Date / Time divalproex sodium Allergy Severe INCRESED Verified 07/25/23 12:20 [From DEPAKOTE] AMMONIA LEVELS haloperidol [From Haldol] Allergy Confusion Verified 07/25/23 12:20 SEAFOOD Allergy Severe facial Uncoded 07/25/23 12:20 swelling; difficulty breathing Review of Systems 2 Review of Systems: Constitutional : No Weight loss, No Fever, No Chills, ENT/Mouth : No Hearing loss, No Ear Pain, No Nasal Congestion, No Sinus Pain, No Hoarseness, No sore throat, No Rhinorrhea, No Swallowing Difficulty Cardiovascular : No Chest Pain, No SOB Respiratory : No Cough, No Dyspnea Gastrointestinal : No Nausea, No Vomiting, No Diarrhea, No abdominal Pain, No Hematochezia, No Melena Genitourinary : No Dysuria, No Urinary Frequency, No Hematuria, No Urinary Incontinence, Musculoskeletal : positive back pain Skin : No Skin Lesions, No rash Neuro : No Weakness, No Numbness, No Paresthesias, no loss of bowel or bladder incontinence, no saddle anesthesia Psych: pos depression, no SI/no HI All other systems reviewed and are negative PMFSH Past Medical History Attestation statement: The following information was validated with the patient. Source: old records reviewed Medical History Bipolar 1 disorder Diabetes Anxiety Social History Social History (Updated 07/25/23 @ 13:01 by Estephanie Alva DO) Alcohol intake: never Patient Tobacco Use Status: Tobacco use Unknown Smoked in Last 30 Days: No Use of substances other than those prescribed or required for medical reasons: No Advance Directives: No Advance Directives Information Provided: No Do you have a plan to hurt others: No Plan Physical Exam 2 Vital Signs: Vital Signs: Last Vital Signs Temp 98.5 F 07/25/23 13:51 Pulse 94 07/25/23 13:51 Resp 18 07/25/23 13:51 BP 141/85 H 07/25/23 13:51 Pulse Ox 99 07/25/23 13:51 O2 Del Method Room Air 07/25/23 13:51 BMI result Body Mass Index 26.6 Appearance: Alert. Oriented X3. No acute distress. Anxious Eyes: Pupils equal, round and reactive to light. ENT: Pharynx normal. Neck: Normal inspection. Neck supple. CVS: Normal heart rate and rhythm. Pulses normal. Respiratory: No respiratory distress. Breath sounds normal. Abdomen: Soft and nontender. Skin: Skin warm and dry. Normal skin color. bilateral forearms and legs chronic open wounds but wounds have granulation tissue no abscess no surrounding cellulitis Extremities: No lower extremity edema. Neuro: Oriented X 3. No motor deficit. No sensory deficit. CN2-12 intact SILT inner thighs legs are crossed seems to be moving legs without issues Course Course Course Narrative: cleared by CARE team they recommend PT/CM Reevaluation(s) Reevaluation #1: signed out to Dr. Youngblood pending CT scan results Medications Administered Generic Name Dose Route Start Last Admin Trade Name Freq PRN Reason Stop Dose Admin Insulin Human Lispro 0 unit 07/25/23 15:15 07/25/23 15:16 Insulin Lispro 100 Unit/Ml 3 Ml Vial SUBCUT 4 unit QIDACHS [facility] Administration Protocol Medical Decision Making Medical Decision Making [facility] Narrative: 63 yo male with PMH of chronic wounds, IDDM, anxiety, bipolar here with c/o chronic wounds though no signs of infection - wound care at bedside, back pain but no IVDA, blood thinners, red flags, b/b incontinence or saddle anesthesia but tells a story of mass I have ordered labs, insulin sliding scale and lumbar CT scan. He has no cauda equina symptoms. He came in as someone living in car not taking his medications. Differential Diagnosis Differential Diagnoses: The differential diagnosis associated with the presentation includes bipolar, back pain, chronic wounds Admission/Observation Consideration of admission/observation: Escalation of care including admission/observation considered needs observation pending CARE team and medical workup started at 104pm Consult Healthcare Provider Management of the patient was discussed with: Behavioral Health Provider Lab Data [facility] Lab Attestation statement: I reviewed the patient's lab results. 07/25/23 13:23 07/25/23 13:22 Labs: Lab Results 07/25/23 07/25/23 07/25/23 Range/Units 11:46 13:22 13:23 WBC 4.8 (4.8-10.8) X10*3/uL RBC 3.92 L (4.60-5.80) X10*6/uL Hgb 9.8 L (14.0-18.0) g/dl Hct 31.4 L (42.0-52.0) % MCV 80.1 (80.0-98.0) fL MCH 25.0 L (27.0-33.0) pg MCHC 31.2 (31.0-36.0) g/dl RDW 13.5 (11.0-16.0) % Plt Count 306 (160-400) X10*3/uL MPV 9.2 L (9.4-12.4) fL Immature Gran % (Auto) 0.8 H (0.0-0.4) % Neut % (Auto) 67.3 (45-73) % Lymph % (Auto) 16.7 L (20-40) % [place] % (Auto) 10.5 (2-11) % Eos % (Auto) 4.3 H (0-4) % Baso % (Auto) 0.4 (0-2) % Lymph # (Auto) 0.8 L (1.2-4.9) X10*3/uL [place] # (Auto) 0.5 (0.1-1.2) X10*3/uL Eos # (Auto) 0.2 (0.0-0.4) X10*3/uL Baso # (Auto) 0.0 (0.0-0.2) X10*3/uL Abs Immat Gran (auto) 0.04 H (0.00-0.03) X10*3/uL Absolute Neuts (auto) 3.3 (2.0-8.3) x10*3/uL Absolute Nucleated RBC 0.000 (0.0-0.012) X10*3/uL Nucleated RBC % (auto) 0.0 (0.0-0.2) /100WBC Sodium 143 (135-145) mmol/L Potassium 4.0 (3.3-5.1) mmol/L Chloride 108 (96-108) mmol/L Carbon Dioxide 25 (22-29) mmol/L Anion Gap 14 (12-20) BUN 14 (9-16) mg/dL Creatinine 0.90 (0.5-1.4) mg/dL Estim Creat Clear Calc 84.0 Estimated GFR > 60 POC Glucose 202 H (60-115) mg/dL Random Glucose 214 H (60-115) mg/dL Calcium 9.0 (8.4-10.2) mg/dL Total Bilirubin 0.2 (0.0-1.0) mg/dL AST 18 (5-37) U/L ALT 5 (0-40) U/L Alkaline Phosphatase 72 (39-117) U/L Total Protein 6.3 L (6.5-8.0) g/dL Albumin 3.7 (3.5-5.0) g/dL Urine Color Urine Appearance Urine pH (5.0-9.0) Ur Specific [place] (1.005-1.025) Urine Protein (Neg-Trace) mg/dL Urine Glucose (UA) (Negative) mg/dL Urine Ketones (Negative) mg/dL Urine Blood (Negative) Urine Nitrite (Negative) Ur Leukocyte Esterase (Negative) Urine RBC (0-2) /HPF Urine WBC (0-5) /HPF Ur Squamous Epith Cells (0-2) /HPF Urine Bacteria (None Seen) Hyaline Casts (0-2) /LPF Urine Opiates Screen (Not Detect) Ur Buprenorphine Scrn (Not Detect) ng/mL Ur Oxycodone Screen (Not Detect) ng/mL Urine Methadone Screen (Not Detect) ng/mL Urine Fentanyl Screen (Not Detect) Ur Barbiturates Screen (Not Detect) Ur Phencyclidine Scrn (Not Detect) Ur Amphetamines Screen (Not Detect) U Benzodiazepines Scrn (Not Detect) Urine Cocaine Screen (Not Detect) U Marijuana (THC) Screen (Not Detect) Ethyl Alcohol < 10 mg/dL 07/25/23 Range/Units 13:44 WBC (4.8-10.8) X10*3/uL RBC (4.60-5.80) X10*6/uL Hgb (14.0-18.0) g/dl Hct (42.0-52.0) % MCV (80.0-98.0) fL MCH (27.0-33.0) pg MCHC (31.0-36.0) g/dl RDW (11.0-16.0) % Plt Count (160-400) X10*3/uL MPV (9.4-12.4) fL Immature Gran % (Auto) (0.0-0.4) % Neut % (Auto) (45-73) % Lymph % (Auto) (20-40) % [place] % (Auto) (2-11) % Eos % (Auto) (0-4) % Baso % (Auto) (0-2) % Lymph # (Auto) (1.2-4.9) X10*3/uL [place] # (Auto) (0.1-1.2) X10*3/uL Eos # (Auto) (0.0-0.4) X10*3/uL Baso # (Auto) (0.0-0.2) X10*3/uL Abs Immat Gran (auto) (0.00-0.03) X10*3/uL Absolute Neuts (auto) (2.0-8.3) x10*3/uL Absolute Nucleated RBC (0.0-0.012) X10*3/uL Nucleated RBC % (auto) (0.0-0.2) /100WBC Sodium (135-145) mmol/L Potassium (3.3-5.1) mmol/L Chloride (96-108) mmol/L Carbon Dioxide (22-29) mmol/L Anion Gap (12-20) BUN (9-16) mg/dL Creatinine (0.5-1.4) mg/dL Estim Creat Clear Calc Estimated GFR POC Glucose (60-115) mg/dL Random Glucose (60-115) mg/dL Calcium (8.4-10.2) mg/dL Total Bilirubin (0.0-1.0) mg/dL AST (5-37) U/L ALT (0-40) U/L Alkaline Phosphatase (39-117) U/L Total Protein (6.5-8.0) g/dL Albumin (3.5-5.0) g/dL Urine Color Yellow Urine Appearance Clear Urine pH 6.0 (5.0-9.0) Ur Specific [place] 1.020 (1.005-1.025) Urine Protein Negative (Neg-Trace) mg/dL Urine Glucose (UA) >=1000 H (Negative) mg/dL Urine Ketones Negative (Negative) mg/dL Urine Blood Negative (Negative) Urine Nitrite Negative (Negative) Ur Leukocyte Esterase Negative (Negative) Urine RBC 0-2 (0-2) /HPF Urine WBC 0-5 (0-5) /HPF Ur Squamous Epith Cells 0-2 (0-2) /HPF Urine Bacteria None Seen (None Seen) Hyaline Casts 0-2 (0-2) /LPF Urine Opiates Screen Not Detected (Not Detect) Ur Buprenorphine Scrn Not Detected (Not Detect) ng/mL Ur Oxycodone Screen Not Detected (Not Detect) ng/mL Urine Methadone Screen Not Detected (Not Detect) ng/mL Urine Fentanyl Screen Not Detected (Not Detect) Ur Barbiturates Screen Not Detected (Not Detect) Ur Phencyclidine Scrn Not Detected (Not Detect) Ur Amphetamines Screen Not Detected (Not Detect) U Benzodiazepines Scrn Not Detected (Not Detect) Urine Cocaine Screen Not Detected (Not Detect) U Marijuana (THC) Screen Not Detected (Not Detect) Ethyl Alcohol mg/dL Independent Interpretation I performed an independent interpretation of an: CT Scan Radiology Impression Discussion of test interpretation with radiology: I have reviewed the radiologist's reading. Independent Historian Clinical information obtained from an independent historian. History obtained from or confirmed by: EMS External Record Review External record reviewed: Inpatient record Discharge Plan Discharge Clinical Impression: Chronic wound, Low back pain Patient Disposition: Still a Patient Prescriptions: No Action nateglinide 120 mg tablet See Rx Instructions .ROUTE .COMPLEX Rx Instructions: TAKE 1/2 TO 1 TABLET BY MOUTH UP TO THREE TIMES DAILY WITH MEALS insulin glargine 100 unit/mL solution 30 unit subcut BEDTIME nicotine (polacrilex) [Nicorette] 2 mg Gum 2 mg BUCCAL Q2H minocycline 100 mg capsule 200 mg PO DAILY lisinopril 20 mg tablet 20 mg PO DAILY atenolol 25 mg tablet 25 mg PO DAILY lithium carbonate 150 mg capsule 450 mg PO BEDTIME pramipexole 0.5 mg tablet 0.5 mg PO TID entacapone 200 mg tablet 200 mg PO 5XD sertraline 25 mg tablet 25 mg PO DAILY carbidopa-levodopa 25-100 mg tablet 1.5 tab PO 5XD rasagiline 1 mg tablet 1 mg PO Q OTHER DAY testosterone 10 mg/0.5 gram /actuation gel in metered-dose pump 4 pump topical DAILY posaconazole 100 mg tablet,delayed release (DR/EC) 100 mg PO DAILY Interventions: [place]-Suicide Risk Severity Scale Last Done: 07/25/23 13:54 Print Language: Urdu
[2023-07-25 13:26] LABS: MANUAL DIFF FLAG NO
[2023-07-25 13:31] LABS: Basophils Percent Auto 0.4 % (0-2); Eosinophils Absolute Auto 0.2 X10*3/uL (0.0-0.4); Eosinophils Percent Auto 4.3 % (0-4); Hematocrit 31.4 % (42.0-52.0); Hemoglobin 9.8 g/dl (14.0-18.0); Imm Gran Abs Auto 0.04 X10*3/uL (0.00-0.03); Imm Gran Pct Auto 0.8 % (0.0-0.4); Lymphocytes Absolute Auto 0.8 X10*3/uL (1.2-4.9); Lymphocytes Percent Auto 16.7 % (20-40); Mean Corpuscular HGB Conc 31.2 g/dl (31.0-36.0); Mean Corpuscular Volume 80.1 fL (80.0-98.0); Mean Platelet Volume 9.2 fL (9.4-12.4); Monocytes Absolute Auto 0.5 X10*3/uL (0.1-1.2); Monocytes Percent Auto 10.5 % (2-11); Neutrophils Absolute Auto 3.3 x10*3/uL (2.0-8.3); Neutrophils Percent Auto 67.3 % (45-73); Platelet Count 306 X10*3/uL (160-400); Red Blood Count 3.92 X10*6/uL (4.60-5.80); Red Cell Distribution Width 13.5 % (11.0-16.0); White Blood Count 4.8 X10*3/uL (4.8-10.8)
[2023-07-25 13:48] LABS: Alanine Aminotransferase 5 U/L (0-40); Albumin Level 3.7 g/dL (3.5-5.0); Alkaline Phosphatase 72 U/L (39-117); Anion Gap 14 (12-20); Aspartate Amino Transferase 18 U/L (5-37); Bilirubin Total 0.2 mg/dL (0.0-1.0); Blood Urea Nitrogen 14 mg/dL (9-16); Carbon Dioxide 25 mmol/L (22-29); Chloride 108 mmol/L (96-108); Estimated Glomerular Filt Rate > 60; Ethanol < 10 mg/dL; Glucose Random 214 mg/dL (60-115); Sodium 143 mmol/L (135-145); Total Protein 6.3 g/dL (6.5-8.0)
[2023-07-25 13:51] VITALS: BP 141/85; PULSE 94; RESP 18; TEMP 36.9; O2SAT 99
[2023-07-25 13:59] LABS: Appearance Urine Clear; Color Urine Yellow; Glucose Urine UA >=1000 mg/dL (Negative); Leukocyte Esterase Urine Negative (Negative); Nitrite Urine Negative (Negative); UMIC TRIGGER UACC YES; Urine Blood Negative (Negative); Urine Ketones Negative (Negative); Urine Protein Negative (Neg-Trace)
[2023-07-25 14:02] LABS: Bacteria Urine None Seen (None Seen); Hyaline Casts Urine 0-2 /LPF (0-2); RBC Urine 0-2 /HPF (0-2); Squamous Epithelial Cell Urine 0-2 /HPF (0-2); WBC Urine 0-5 /HPF (0-5)
[2023-07-25 14:08] LABS: Amphetamine Screen Urine Not Detected (Not Detect); Barbiturates, Urine Not Detected (Not Detect); Benzodiazepines Screen Urine Not Detected (Not Detect); Buprenorphine Scr Not Detected (Not Detect); Cannabinoid Screen Urine Not Detected (Not Detect); Cocaine Screen Urine Not Detected (Not Detect); Fentanyl, urine Not Detected (Not Detect); Methadone Screen, Urine Not Detected (Not Detect); Opiate Screen Urine Not Detected (Not Detect); Oxycodone Screen Urine Not Detected (Not Detect); Phencyclidine Screen Urine Not Detected (Not Detect)
--- NOTE | 2023-07-25 14:36 | MHC.CARE ---
Family Consumer Scientist called sister Tessy [phone] for collateral information. Voicemail with request for return call left.
[2023-07-25] MEDS: Insulin Lispro 100 UNIT/ML 3 ML VIAL SUBCUT ×3 (15:16→22:31)
[2023-07-25 17:33] LABS: Glucose, Whole Blood 186 mg/dL (60-115)
--- NOTE | 2023-07-25 17:38 | MHC.CARE ---
Top Ironer spoke with ISSAC Danielson to request Case Mgmt and PT Eval for potential acute rehab placement due to multiple medical issues and deconditioning. Cleared by CARE Team earlier today. Discussed/Updated with VIDAL Villavicencio
--- NOTE | 2023-07-25 17:49 | PC.NURSE ---
Transferred patient to main ED at 1748. Report given to primary RN prior to transfer.
--- NOTE | 2023-07-25 18:13 | PC.NURSE ---
pt assisted to transfer to Bed 6 in ED. Very unstable on feet with walker. WC Needed. multiple macerated and shallow wounds redressed when settled in Bed 6. Pt has been dressing toe wounds with gloves. A multitude of pills were in patient belongings and [facility] is sending them to pharmacy.
[2023-07-25 18:17] VITALS: BP 125/73; PULSE 83; RESP 16; TEMP 36.1; O2SAT 96
[2023-07-25] MEDS: Nicotine Polacrilex 2 MG GUM BUCCAL ×2 (18:23→22:31)
[2023-07-25] MEDS: Carbidopa/Levodopa 25/100 TABLET 1.5 TAB PO ×2 (18:23→22:29)
--- NOTE | 2023-07-25 18:30 | PC.NURSE ---
pt brought over to ED6 from [facility] at this time. a&ox4. vss and up to date. pt seems to be an eccentric individual. pt seemingly unkept. pt states he is here because he has not been taking his medications for bipolar disorder and not being able to take care of his wounds. hx DM (uncontrolled). wounds noted to LE bilaterally. wounds recently dressed by ayden and previous RN. pt c/o generalized discomfort throughout body especially back. pt states sx worsen w/ movement. pt medicated per provider order. pharmacy called d/t missing medication - will administer when able. no sob/wob noted. respirations even and unlabored. 1:1 sitter present. call coates placed within reach.
[2023-07-25] MEDS: Lidocaine 4 % Patch ADH..PATCH 1 PATCH TRANSDERMA (19:59)
--- NOTE | 2023-07-25 19:59 | MHC.EDTECH ---
This tech took over care of patient at 1900,hourly rounds completed,1-1 sitter at bedside for safety.
[2023-07-25] MEDS: diphenhydrAMINE HCL 25 MG CAPSULE 50 MG PO (20:00)
--- NOTE | 2023-07-25 21:50 | MHC.EDTECH ---
POC taken and is 199 RN Jessica
[2023-07-25 21:56] LABS: Glucose, Whole Blood 199 mg/dL (60-115)
[2023-07-25 22:00] VITALS: BP 111/70; PULSE 77; RESP 18; TEMP 36.5; O2SAT 99
--- NOTE | 2023-07-25 22:04 | MHC.EDTECH ---
Hourly rounds and vitals completed,patient is resting at this time,1-1 sitter at bedside
[2023-07-25] MEDS: Lithium Carbonate 300 MG TABLET 450 MG PO (22:29)
[2023-07-25] MEDS: Pramipexole Di-HCL 0.25 MG TABLET 0.5 MG PO (22:29)
[2023-07-25] MEDS: Insulin Glargine,Hum.rec.anlog 100 UNIT/ML 10 ML VIAL 30 UNIT SUBCUT (22:31)
--- NOTE | 2023-07-25 23:02 | MHC.CM.ED ---
CARE Team Tonia spoke with CM regarding this patient. He has been medically cleared for [facility] placement. Concerns about his ambulation. Has parkinson's. Patient says he furniture walks , PT consult placed. No DME/services. Lives alone. Long hx of mental health concerns, including anxiety, bipolar and complex PTSD. See CARE TEAM evaluation for details. Pt does not have a local PCP. Has a psychiatrist in [facility]. Dr. Aguiar, who Tonia from CARE team had a long conversation with. Dr. Aguiar and Ashlyn Stein Psych nurse practitioner at [facility] have ordered his medications. Pt tells CM he sees many specialists at [facility].Pt does not have a local PCP. Pt sleeps in his home and in his car . He states his house is in disrepair and he thinks it is making him sick. Pt was recently inpatient psych in [place], [place] about 4 weeks ago, for about 1 week.. Again, CARE team does not feel patient needs inpatient psych. Pt declines HCP. Would like STR. Pt had no recent medical inpatient stay. Has Medicare/Medex. Will place acute referrals. Pt is not homebound, so will not qualify for home PT. CM will follow for discharge needs.
--- NOTE | 2023-07-25 23:16 | PC.NURSE ---
Patient sleeping, wakes to verbal stimulus. Currently reports pain in is lower back 5/10 at tolerable level. VSS, 1:1 sitter at bedside, call coates within reach, plan of care ongoing.
[2023-07-26] VITALS (7 sets, daily range): BP systolic 102–126; BP diastolic 63–73; PULSE 70–85; RESP 16–18; TEMP 36.7–37; O2SAT 96–98
--- NOTE | 2023-07-26 00:29 | MHC.EDTECH ---
Belongings were placed in LOCKER 11 in the POD
[2023-07-26] MEDS: Carbidopa/Levodopa 25/100 TABLET 1.5 TAB PO ×2 (06:11→09:58)
--- NOTE | 2023-07-26 06:11 | MHC.EDTECH ---
Emptied 400MLS of yellow urine,hourly rounds and vitals completed,1-1 sitter at bedside
[2023-07-26] MEDS: Nicotine Polacrilex 2 MG GUM BUCCAL ×4 (06:12→14:39)
--- NOTE | 2023-07-26 07:22 | PC.NURSE ---
Dressings changed to 10 open wounds on patients bilateral arms and legs. Areas cleansed, dried, and non- adherent dressings applied. Scant amount of ss drainage noted from most wounds. Wounds patient reports are chronic and non healing. Denies pain from wounds but states he needs to put the tip of a glove over his left thumb because it will help with the pain from a new area that is starting , ate well for breakfast
[2023-07-26 07:29] LABS: Glucose, Whole Blood 209 mg/dL (60-115)
[2023-07-26] MEDS: atenoloL 25 MG TABLET PO (07:30)
[2023-07-26] MEDS: Insulin Lispro 100 UNIT/ML 3 ML VIAL SUBCUT (07:31)
[2023-07-26] MEDS: Pramipexole Di-HCL 0.25 MG TABLET 0.5 MG PO (07:31)
[2023-07-26] MEDS: Sertraline HCL 25 MG TABLET PO (07:31)
[2023-07-26] MEDS: lisinopriL 20 MG TABLET PO (07:37)
--- NOTE | 2023-07-26 07:38 | PC.NURSE ---
Patient medicated per may, however only took half (10mg) of lisinopril. Patient stating he only takes half at home because it will drop his BP/ pule too much. Provider aware
--- NOTE | 2023-07-26 10:18 | PC.NURSE ---
Patient requesting multiple different medications and to speak to PA, pa aware
--- NOTE | 2023-07-26 11:06 | PC.NURSE ---
[place] police called asking for emergency contact info because when they picked patient up at his house yesterday they left th house unlocked. PD provided with sisters contact info- PD stating patient is not homeless and owns a house but that he chooses to live on the floor of his van d/t pain issues with chronic wounds
[2023-07-26 13:06] LABS: Glucose, Whole Blood 167 mg/dL (60-115)
--- NOTE | 2023-07-26 13:36 | MHC.CM.PN ---
P.T. HAS RECOMMENDED STR HOWEVER PT DOES NOT HAVE A QHS. PT HAS BEEN DECLINED BY ACUTE REHAB. PT MAY NEED TO SEE FINANCIAL COUNSELOR ON FRIDAY. PT DOES NOT FEEL COMFORTABLE GOING HOME AND HAS NO PCP SO NOT ABLE TO HAVE HOME SERVICES. CM WILL CONTINUE TO FOLLOW FOR DC PLAN
--- NOTE | 2023-07-26 14:37 | MHC.EDTECH ---
patient refused to allow this tech to obtain vitals. Patient was stating that he wanted to leave.
--- NOTE | 2023-07-26 15:05 | PC.NURSE ---
Patient requesting discharge provider aware. Belongings removed from POD locker 11, meds picked up from pharmacy and returned to patient
== END 2023-07-26 15:17 | disposition home or self-care (01) ==
PROVIDERS: Emergency Provider Emergency Medicine
DX: M54.50 Low back pain, unspecified (principal); S81.802A Unspecified open wound, left lower leg, initial encounter; S81.801A Unspecified open wound, right lower leg, initial encounter; S41.102A Unspecified open wound of left upper arm, initial encounter; S41.101A Unspecified open wound of right upper arm, initial encounter; X58.XXXA Exposure to other specified factors, initial encounter; Y93.9 Activity, unspecified; Y92.9 Unspecified place or not applicable; Y99.9 Unspecified external cause status; Z59.02 Unsheltered homelessness; E11.9 Type 2 diabetes mellitus without complications; Z79.4 Long term (current) use of insulin; Z91.148 Patient's other noncompliance with medication regimen for other reason
CPT/HCPCS: 36415; 72132; 80053; 80307; 81001; 82947; 85025; 97162; 99285; S9485

== ENCOUNTER 2023-08-04 10:11 | Emergency (ER) | payer MEDICARE, SELFPAY ==
--- NOTE | ~2023-08-04 | CT_ITS ---
EXAMINATION: CT ANGIOGRAM OF THE CHEST WITH AND WITHOUT CONTRAST (CT PULMONARY ANGIOGRAM FOR PE) CLINICAL INFORMATION: Reason for Exam Shortness of breath/dizziness COMPARISON: Chest x-ray performed same day TECHNIQUE: Prior to contrast administration, noncontrast localization images were obtained. Subsequently, multidetector volumetric imaging was performed from the thoracic inlet to below the diaphragms following the administration of 80 mL Omnipaque 350 intravenous contrast. No contrast reaction reported Sagittal, coronal, and MIP oblique sagittal reformatted images were obtained on the CT workstation, uploaded to PACS, and reviewed. This CT examination was performed using dose optimization techniques as appropriate, variously including the following: *Automated exposure control *Adjustment of mA and/or kV according to patient size (this includes techniques or standardized protocols for targeted exams where dose is matched to indication/reason for exam; i.e. extremities or head) *Use of iterative reconstruction technique Total exam dose-length product 334 mGy-cm FINDINGS: QUALITY OF STUDY/CONTRAST BOLUS: Satisfactory. PULMONARY ARTERIES: No pulmonary emboli. THORACIC AORTA: No aneurysm. Mild arterial calcification. LUNG: Multiple scattered small 1 to 4 mm calcified nodules throughout the right lung. Few small calcified nodules in the left lung. Findings compatible with multiple small granulomata PLEURA: No pleural effusion or pneumothorax. MEDIASTINUM: Normal heart size. No pericardial effusion. No hilar or mediastinal lymphadenopathy. No evidence of septal bowing or right heart strain. CORONARY ARTERY CALCIFICATION: Minimal coronary artery calcification. CHEST WALL/AXILLA: No axillary or internal mammary lymphadenopathy. OSSEOUS STRUCTURES: Moderate multilevel spondylosis of the dorsal spine with multiple endplate osteophytes UPPER ABDOMEN: Unremarkable. No reflux of contrast into the hepatic veins to suggest elevated right heart pressures. CT/CT angio chest PE protocol IMPRESSION: 1. No evidence for pulmonary embolism. 2. Old granulomatous disease. 3. Minimal coronary artery calcification. VTE: negative.
--- NOTE | ~2023-08-04 | XR_ITS ---
EXAMINATION: XR CHEST CLINICAL INFORMATION: Chest pressure COMPARISON: None available. TECHNIQUE: Frontal view of the chest was obtained. FINDINGS: No focal consolidation. No pneumothorax. Trachea is midline. Cardiomediastinal silhouette is not enlarged. No large pleural effusion. Osseous structures are intact. Soft tissues are unremarkable. XR/XR chest 1V IMPRESSION: No acute cardiopulmonary process.
--- NOTE | 2023-08-04 10:17 | ECG_ITS ---
Test Reason : CHEST1 PRESSURE Blood Pressure : / mmHG Vent. Rate : 085 BPM Atrial Rate : 085 BPM P-R Int : 166 ms QRS Dur : 140 ms QT Int : 418 ms P-R-T Axes : 040 -11 030 degrees QTc Int : 497 ms Normal sinus rhythm Right bundle branch block Abnormal ECG When compared with ECG of 23-JUL-2023 15:53, Right bundle branch block has replaced Incomplete right bundle branch block Referred By: Anuradha Elizabeth Electronically Signed By:JARED GODFREY
[2023-08-04 10:20] VITALS: BP 132/78; BP 144/90; PULSE 93; PULSE 94; RESP 18; TEMP 36.7; O2SAT 98; BMI 27.9
[2023-08-04 10:50] LABS: MANUAL DIFF FLAG NO
[2023-08-04 10:52] LABS: Basophils Percent Auto 0.8 % (0-2); Eosinophils Absolute Auto 0.2 X10*3/uL (0.0-0.4); Eosinophils Percent Auto 4.5 % (0-4); Hematocrit 35.2 % (42.0-52.0); Imm Gran Abs Auto 0.05 X10*3/uL (0.00-0.03); Lymphocytes Percent Auto 20.3 % (20-40); Mean Corpuscular HGB Conc 31.3 g/dl (31.0-36.0); Mean Corpuscular Hemoglobin 24.9 pg (27.0-33.0); Mean Corpuscular Volume 79.8 fL (80.0-98.0); Mean Platelet Volume 9.3 fL (9.4-12.4); Monocytes Absolute Auto 0.5 X10*3/uL (0.1-1.2); Monocytes Percent Auto 8.9 % (2-11); Neutrophils Absolute Auto 3.3 x10*3/uL (2.0-8.3); Neutrophils Percent Auto 64.5 % (45-73); Platelet Count 239 X10*3/uL (160-400); Red Blood Count 4.41 X10*6/uL (4.60-5.80); Red Cell Distribution Width 14.6 % (11.0-16.0); White Blood Count 5.1 X10*3/uL (4.8-10.8)
[2023-08-04 10:54] LABS: Glucose, Whole Blood 281 mg/dL (60-115)
[2023-08-04 10:56] LABS: INTERNATIONAL NORM RATIO 1.1 (0.9-1.1)
--- NOTE | 2023-08-04 11:05 | ED_ITS ---
HPI - General Adult General Chief complaint: General Medical Stated complaint: CHEST PRESSURE,DIFF BREATHING PER EMS Time Seen by Provider: 08/04/23 10:17 Source: patient Mode of arrival: EMS History of Present Illness ED Provider: Dr Elizabeth HPI narrative: Is a 63-year-old male who is brought in by EMS from his home with complaints of shortness of breath/nausea and dizziness with back pain for the past 4 days, patient was evaluated here in this emergency room last week. 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 Patient reports he applies his own dressings to his legs and states that the back pain is at the lower lumbar area as it transitions on to his buttocks. EMS administered Zofran/aspirin. Related Data Home Medications ?Medication ?Instructions ?Recorded ?Confirmed atenolol 25 mg tablet 25 mg PO DAILY 07/25/23 07/25/23 carbidopa 25 mg-levodopa 100 mg 1.5 tab PO 5XD 07/25/23 07/25/23 tablet entacapone 200 mg tablet 200 mg PO 5XD 07/25/23 07/25/23 insulin glargine 100 unit/mL 30 unit subcut BEDTIME 07/25/23 07/25/23 subcutaneous solution lisinopril 20 mg tablet 20 mg PO DAILY 07/25/23 07/25/23 lithium carbonate 150 mg capsule 450 mg PO BEDTIME 07/25/23 07/25/23 minocycline 100 mg capsule 200 mg PO DAILY 07/25/23 07/25/23 nateglinide 120 mg tablet See Rx Instructions .Route .COMPLEX 07/25/23 07/25/23 nicotine (polacrilex) 2 mg gum 2 mg buccal Q2H 07/25/23 07/25/23 (Nicorette) posaconazole 100 mg tablet,delayed 100 mg PO DAILY 07/25/23 07/25/23 release pramipexole 0.5 mg tablet 0.5 mg PO TID 07/25/23 07/25/23 rasagiline 1 mg tablet 1 mg PO Q OTHER DAY 07/25/23 07/25/23 sertraline 25 mg tablet 25 mg PO DAILY 07/25/23 07/25/23 testosterone 10 mg/0.5 4 pump topical DAILY 07/25/23 07/25/23 gram/actuation transdermal gel pump Allergies Allergy/AdvReac Type Severity Reaction Status Date / Time divalproex sodium Allergy Severe INCRESED Verified 08/04/23 10:23 [From DEPAKOTE] AMMONIA LEVELS haloperidol [From Haldol] Allergy Confusion Verified 07/25/23 12:20 SEAFOOD Allergy Severe facial Uncoded 07/25/23 12:20 swelling; difficulty breathing Review of Systems 2 Review of Systems: Pertinent positives and negatives as stated in [facility] Past Medical History Source: nursing notes reviewed Medical History Bipolar 1 disorder Diabetes Anxiety Social History Social History Alcohol intake: never Patient Tobacco Use Status: Tobacco use Unknown Smoked in Last 30 Days: No Use of substances other than those prescribed or required for medical reasons: No Advance Directives: No Advance Directives Information Provided: No Physical Exam ED Vital Signs: Vital Signs - 24 hr 08/04/23 10:20 08/04/23 12:07 08/04/23 14:08 Temperature 98.0 F 98.3 F 98.1 F Pulse Rate 93 78 77 Respiratory Rate 18 18 18 Blood Pressure 132/78 119/73 119/58 L Pulse Oximetry 98 98 100 Oxygen Delivery Method Room Air Room Air Room Air BMI result Body Mass Index 27.9 VITAL SIGNS: Reviewed. GENERAL: Well developed, well nourished, in no acute distress. HEAD: Normocephalic/atraumatic EYES: PERRLA, EOMI EARS: Ext canals without abnormality NOSE: Nares patent bilateral OROPHARYNX: no oral lesions noted, posterior pharynx clear NECK: Supple, no adenopathy LUNGS: Normal breath sounds. No adventitious sounds or accessory muscle use. SpO2<98> CARDIOVASCULAR: Regular rate and rhythm without noted murmurs, no JVD or lower extremity edema. ABDOMEN: Soft, non-tender, non-distended with bowel sounds. BACK: No midline vertebral tenderness or step-offs noted to the cervical/thoracic/lumbar vertebra no obvious erythema or induration appreciated in the lower back MUSCULOSKELETAL: No tenderness, deformities, or effusions noted on gross inspection. EXTREMITIES: No cyanosis, clubbing or edema. SKIN: Inspection of the skin reveals no rashes, multiple wounds to all extremities without evidence of acute infection NEUROLOGIC: Alert and oriented x 4. Strength and sensation to light touch were grossly intact x 4. Medications Administered Discontinued Medications Generic Name Dose Route Start Last Admin Trade Name Dany PRN Reason Stop Dose Admin Iohexol 100 ml 08/04/23 11:47 08/04/23 11:48 Iohexol 350 Mg/Ml 100 Ml Infus..Btl IV 08/04/23 11:48 65 ml ONCE ONE Administration Medical Decision Making Medical Decision Making MDM Narrative: 63-year-old male with history and clinical presentation, DDX: Viral infection, no concern for pneumonia at this time, possible ACS, no clinical suspicion for cauda equina/spinal abscess, infection I reviewed all investigations and hematologic indices are chronically stable without leukocytosis, patient has a stable borderline normocytic anemia without thrombocytopenia. D-dimer is not elevated but given patient's symptoms in conjunction with EKG changes will proceed with CT angio to rule out PE otherwise coagulation studies are within normal limits. Chemistry indices are negative for CHLOE or electrolyte/liver enzyme derangements and serial troponins are undetectable. EKG does demonstrate development of right bundle branch block which is new when compared to prior EKG from 07/22. Chest x-ray negative for infiltrate or venous congestion and otherwise my interpretation is in agreement with radiology's impression. CT angio is negative for VTE and only demonstrates old granulomatous disease. My interpretation is patient may be experiencing acute on chronic back pain which can be treated with [id number] analgesics which will be provided to the patient. I will also provide patient with a list of primary care providers as well as a referral to follow-up with cardiology. 1512: I discussed case with Cardiology, Dr. Paige, who recommends that as long as chest pain sounds atypical then okay with outpatient workup but if sounds cardiac in nature then should be admitted and will do inpatient stress test. I further discussed patient's chest pain with him and he states that it has not so much chest pain as there is tightness in his throat that extends into his chest. I discussed with the patient his outpatient follow-up. Differential Diagnosis Differential Diagnoses: The differential diagnosis associated with the presentation includes Please see the discussion above Admission/Observation Consideration of admission/observation: Escalation of care including admission/observation considered Please see the discussion above Consult Healthcare Provider Management of the patient was discussed with: Boiler Testing Technician Please see the discussion above Lab Data MDM Lab Attestation statement: I reviewed the patient's lab results. Please see the discussion above 08/04/23 10:43 08/04/23 10:43 Labs: Lab Results 08/04/23 08/04/23 08/04/23 Range/Units 10:43 10:51 13:25 WBC 5.1 (4.8-10.8) X10*3/uL RBC 4.41 L (4.60-5.80) X10*6/uL Hgb 11.0 L (14.0-18.0) g/dl Hct 35.2 L (42.0-52.0) % MCV 79.8 L (80.0-98.0) fL MCH 24.9 L (27.0-33.0) pg MCHC 31.3 (31.0-36.0) g/dl RDW 14.6 (11.0-16.0) % Plt Count 239 (160-400) X10*3/uL MPV 9.3 L (9.4-12.4) fL Immature Gran % (Auto) 1.0 H (0.0-0.4) % Neut % (Auto) 64.5 (45-73) % Lymph % (Auto) 20.3 (20-40) % [place] % (Auto) 8.9 (2-11) % Eos % (Auto) 4.5 H (0-4) % Baso % (Auto) 0.8 (0-2) % Lymph # (Auto) 1.0 L (1.2-4.9) X10*3/uL [place] # (Auto) 0.5 (0.1-1.2) X10*3/uL Eos # (Auto) 0.2 (0.0-0.4) X10*3/uL Baso # (Auto) 0.0 (0.0-0.2) X10*3/uL Abs Immat Gran (auto) 0.05 H (0.00-0.03) X10*3/uL Absolute Neuts (auto) 3.3 (2.0-8.3) x10*3/uL Absolute Nucleated RBC 0.000 (0.0-0.012) X10*3/uL Nucleated RBC % (auto) 0.0 (0.0-0.2) /100WBC PT 13.0 (11.1-13.3) SEC INR 1.1 (0.9-1.1) D-Dimer High Sensitivty 158 NG/ML Sodium 139 (135-145) mmol/L Potassium 4.2 (3.3-5.1) mmol/L Chloride 106 (96-108) mmol/L Carbon Dioxide 22 (22-29) mmol/L Anion Gap 15 (12-20) BUN 16 (9-16) mg/dL Creatinine 0.84 (0.5-1.4) mg/dL Estim Creat Clear Calc 97.6 Estimated GFR > 60 POC Glucose 281 H (60-115) mg/dL Random Glucose 296 H (60-115) mg/dL Calcium 8.8 (8.4-10.2) mg/dL Total Bilirubin 0.4 (0.0-1.0) mg/dL AST 29 (5-37) U/L ALT < 5 (0-40) U/L Alkaline Phosphatase 70 (39-117) U/L Troponin I High Sens < 2.7 < 2.7 (<3.5-35.0) ng/L B-Natriuretic Peptide 13 (<100) pg/mL Total Protein 6.3 L (6.5-8.0) g/dL Albumin 3.7 (3.5-5.0) g/dL Independent Interpretation I performed an independent interpretation of an: EKG Interpretation: Normal sinus rhythm, HR-85, RBBB which is new since 07/22, no STEMI, SD within normal limits, QTC mildly prolonged. Radiology Impression Discussion of test interpretation with radiology: I have reviewed the radiologist's reading. Radiologist Impression: Please see the discussion above External Record Review External record reviewed: Outpatient record, Prior outpatient labs and Prior outpatient radiology Critical Care Time Critical Care Time Critical Care Time: Yes Total Critical Care Time: 60 Attestation: I personally attest to this time spent taking care of the patient. Discharge Plan Discharge Clinical Impression: Chest pain, New onset right bundle branch block (RBBB) Patient Disposition: Home, Self-Care Instructions: Chest Pain (ED) Additional Instructions: 1. You are being provided with a list of primary care providers locally, I strongly encourage you to make phone calls starting tomorrow morning to establish care. 2. You are being provided with a referral to follow-up with cardiology and should call the office in the morning to set up an appointment for further outpatient evaluation. Do not hesitate to return to the emergency room for any acute worsening of your symptoms. Prescriptions: No Action nateglinide 120 mg tablet See Rx Instructions .ROUTE .COMPLEX Rx Instructions: TAKE 1/2 TO 1 TABLET BY MOUTH UP TO THREE TIMES DAILY WITH MEALS insulin glargine 100 unit/mL solution 30 unit subcut BEDTIME nicotine (polacrilex) [Nicorette] 2 mg Gum 2 mg BUCCAL Q2H minocycline 100 mg capsule 200 mg PO DAILY lisinopril 20 mg tablet 20 mg PO DAILY atenolol 25 mg tablet 25 mg PO DAILY lithium carbonate 150 mg capsule 450 mg PO BEDTIME pramipexole 0.5 mg tablet 0.5 mg PO TID entacapone 200 mg tablet 200 mg PO 5XD sertraline 25 mg tablet 25 mg PO DAILY carbidopa-levodopa 25-100 mg tablet 1.5 tab PO 5XD rasagiline 1 mg tablet 1 mg PO Q OTHER DAY testosterone 10 mg/0.5 gram /actuation gel in metered-dose pump 4 pump topical DAILY posaconazole 100 mg tablet,delayed release (DR/EC) 100 mg PO DAILY Referrals: Jean Marie Paige MD [Physician] - Print Language: Nepali
[2023-08-04 11:15] LABS: Alanine Aminotransferase < 5 U/L (0-40); Albumin Level 3.7 g/dL (3.5-5.0); Alkaline Phosphatase 70 U/L (39-117); Anion Gap 15 (12-20); Aspartate Amino Transferase 29 U/L (5-37); Bilirubin Total 0.4 mg/dL (0.0-1.0); Blood Urea Nitrogen 16 mg/dL (9-16); Calcium 8.8 mg/dL (8.4-10.2); Carbon Dioxide 22 mmol/L (22-29); Chloride 106 mmol/L (96-108); Creatinine Clr Calc Pharmacy 97.6; Estimated Glomerular Filt Rate > 60; Glucose Random 296 mg/dL (60-115); Potassium 4.2 mmol/L (3.3-5.1); Sodium 139 mmol/L (135-145); Total Protein 6.3 g/dL (6.5-8.0); Troponin-I High Sensitivity < 2.7 ng/L (<3.5-35.0)
[2023-08-04 11:21] LABS: D Dimer High Sensitivity 158 NG/ML
--- NOTE | 2023-08-04 11:28 | PC.NURSE ---
labs drawn, IV placed (20g right forearm) EKG and POC done. pt alert, oriented. has multiple complaints - chest pressure, SOB, dizziness and nausea which has been going on for a couple of weeks but worsened last night. Pt also has multiple wounds on lower and upper extremities and hands - some are open and bandaged, others are scabbed over.
[2023-08-04] MEDS: iohexoL 350 MG/ML 100 ML INFUS..BTL IV (11:48)
[2023-08-04 12:07] VITALS: BP 119/73; PULSE 78; RESP 18; TEMP 36.8; O2SAT 98
[2023-08-04 14:04] LABS: Troponin-I High Sensitivity < 2.7 ng/L (<3.5-35.0)
[2023-08-04 14:08] VITALS: BP 119/58; PULSE 77; RESP 18; TEMP 36.7; O2SAT 100
[2023-08-04 14:54] LABS: B Type Natriuretic Peptide 13 pg/mL (<100)
[2023-08-04 16:00] LABS: Glucose, Whole Blood 238 mg/dL (60-115)
--- NOTE | 2023-08-04 16:01 | PC.NURSE ---
pt got dressed independently, walked around ED unassisted and with steady gait.
[2023-08-04 16:03] VITALS: BP 128/62; PULSE 80; RESP 18; TEMP 36.7; O2SAT 100
== END 2023-08-04 16:04 | disposition home or self-care (01) ==
PROVIDERS: Emergency Provider Student in an Organized Health Care Education/Training Program
DX: R07.9 Chest pain, unspecified (principal); I45.10 Unspecified right bundle-branch block; E11.9 Type 2 diabetes mellitus without complications
CPT/HCPCS: 36415; 71045; 71275; 80053; 82947; 83880; 84484; 85025; 85379; 85610; 93005; 99284; Q9967

== ENCOUNTER → 2023-08-04 10:17 | Outpatient (BNV) | payer MEDICARE, SELFPAY | PROVIDERS: Emergency Provider Student in an Organized Health Care Education/Training Program; Visit Provider Internal Medicine | DX: R07.89 Other chest pain (principal) | CPT/HCPCS: 93010 ==

== ENCOUNTER 2023-09-12 21:33 | Emergency (ER) | payer MEDICARE, SELFPAY ==
[2023-09-12 21:48] VITALS: BP 106/63; PULSE 88; RESP 16; TEMP 36.7; O2SAT 91
[2023-09-12 21:57] LABS: Glucose, Whole Blood 334 mg/dL (60-115)
[2023-09-12 22:00] VITALS: BP 106/63; PULSE 88; RESP 16; TEMP 36.7; O2SAT 91; BMI 26.6
--- NOTE | 2023-09-12 22:27 | ED_ITS ---
HPI - General Adult General Chief complaint: General Medical Stated complaint: TOOK 13 U OF INSULIN INSTEAD OF 3 U PER EMS Time Seen by Provider: 09/12/23 22:26 Source: patient Mode of arrival: ambulatory Limitations: no limitations History of Present Illness ED Provider: tiara NUR narrative: Patient diabetic supposed to take long-acting insulin but instead took short- acting insulin as he could not see from his glasses and took 13 units Humalog at 20:30 for blood sugar of 260 then as he got scared so he took 6 sugar tablet denies any complaints at this time on arrival blood sugar was 334 Related Data Home Medications ?Medication ?Instructions ?Recorded ?Confirmed atenolol 25 mg tablet 25 mg PO DAILY 07/25/23 07/25/23 carbidopa 25 mg-levodopa 100 mg 1.5 tab PO 5XD 07/25/23 07/25/23 tablet entacapone 200 mg tablet 200 mg PO 5XD 07/25/23 07/25/23 insulin glargine 100 unit/mL 30 unit subcut BEDTIME 07/25/23 07/25/23 subcutaneous solution lisinopril 20 mg tablet 20 mg PO DAILY 07/25/23 07/25/23 lithium carbonate 150 mg capsule 450 mg PO BEDTIME 07/25/23 07/25/23 minocycline 100 mg capsule 200 mg PO DAILY 07/25/23 07/25/23 nateglinide 120 mg tablet See Rx Instructions .Route .COMPLEX 07/25/23 07/25/23 nicotine (polacrilex) 2 mg gum 2 mg buccal Q2H 07/25/23 07/25/23 (Nicorette) posaconazole 100 mg tablet,delayed 100 mg PO DAILY 07/25/23 07/25/23 release pramipexole 0.5 mg tablet 0.5 mg PO TID 07/25/23 07/25/23 rasagiline 1 mg tablet 1 mg PO Q OTHER DAY 07/25/23 07/25/23 sertraline 25 mg tablet 25 mg PO DAILY 07/25/23 07/25/23 testosterone 10 mg/0.5 4 pump topical DAILY 07/25/23 07/25/23 gram/actuation transdermal gel pump Allergies Allergy/AdvReac Type Severity Reaction Status Date / Time divalproex sodium Allergy Severe INCRESED Verified 09/12/23 22:04 [From DEPAKOTE] AMMONIA LEVELS haloperidol [From Haldol] Allergy Confusion Verified 09/12/23 22:04 SEAFOOD Allergy Severe facial Uncoded 09/12/23 22:04 swelling; difficulty breathing PMFSH Past Medical History Medical History Bipolar 1 disorder Diabetes Anxiety Social History Social History Alcohol intake: never Patient Tobacco Use Status: Tobacco use Unknown Advance Directives: No Advance Directives Information Provided: Yes Do you have a plan to hurt others: No Plan Physical Exam ED Vital Signs: Vital Signs - 24 hr 09/12/23 21:48 09/12/23 22:00 09/12/23 23:39 Temperature 98.1 F 98.1 F 97.8 F Pulse Rate 88 88 76 Respiratory Rate 16 16 14 Blood Pressure 106/63 106/63 130/81 Pulse Oximetry 91 L 91 L 93 Oxygen Delivery Method Room Air Room Air Room Air BMI result Body Mass Index 26.6 Appearance: Alert. Oriented X3. No acute distress. Eyes: PERRLA, No Nystagmus ENT: Pharynx normal. Oral Mucosa moist Neck: Normal inspection. Neck supple. CVS: Normal heart rate and rhythm. Pulses normal. Respiratory: No respiratory distress. Equal air entry bilateral, no wheezing/rales/rhonchi Abdomen: Soft and nontender. Bowel sounds are present, no mass palpable, no CVA tenderness Skin: Skin warm and dry. Normal skin color. Normal skin turgor. Extremities: No lower extremity edema. No calf tenderness Neuro: Oriented X 3. No motor deficit. No sensory deficit.No cerebellar signs , cranial nerves II-XII intact Medical Decision Making Medical Decision Making [facility] Narrative: Patient refused any help denies any need for DELIVERY OF SHOPPING NEWS clinically stable discharge patient home Lab Data [facility] Lab Attestation statement: I reviewed the patient's lab results. Labs: Lab Results 09/12/23 Range/Units 21:53 POC Glucose 334 H (60-115) mg/dL Discharge Plan Discharge Clinical Impression: Insulin adverse reaction Patient Disposition: Home, Self-Care Instructions: Type 2 Diabetes Management for Adults (ED) Additional Instructions: Check and take proper dose of your insulin as prescribed Take your long-acting insulin tonight Prescriptions: No Action nateglinide 120 mg tablet See Rx Instructions .ROUTE .COMPLEX Rx Instructions: TAKE 1/2 TO 1 TABLET BY MOUTH UP TO THREE TIMES DAILY WITH MEALS insulin glargine 100 unit/mL solution 30 unit subcut BEDTIME nicotine (polacrilex) [Nicorette] 2 mg Gum 2 mg BUCCAL Q2H minocycline 100 mg capsule 200 mg PO DAILY lisinopril 20 mg tablet 20 mg PO DAILY atenolol 25 mg tablet 25 mg PO DAILY lithium carbonate 150 mg capsule 450 mg PO BEDTIME pramipexole 0.5 mg tablet 0.5 mg PO TID entacapone 200 mg tablet 200 mg PO 5XD sertraline 25 mg tablet 25 mg PO DAILY carbidopa-levodopa 25-100 mg tablet 1.5 tab PO 5XD rasagiline 1 mg tablet 1 mg PO Q OTHER DAY testosterone 10 mg/0.5 gram /actuation gel in metered-dose pump 4 pump topical DAILY posaconazole 100 mg tablet,delayed release (DR/EC) 100 mg PO DAILY Print Language: Portuguese
[2023-09-12 23:39] VITALS: BP 130/81; PULSE 76; RESP 14; TEMP 36.6; O2SAT 93
== END 2023-09-13 01:00 | disposition home or self-care (01) ==
PROVIDERS: Emergency Provider Internal Medicine
DX: T38.3X1A Poisoning by insulin and oral hypoglycemic [antidiabetic] drugs, accidental (unintentional), initial encounter (principal); E11.65 Type 2 diabetes mellitus with hyperglycemia; Y92.009 Unspecified place in unspecified non-institutional (private) residence as the place of occurrence of the external cause
CPT/HCPCS: 82947; 99282; 99284

== ENCOUNTER 2023-09-26 15:07 | Emergency (ER) | payer MEDICARE, SELFPAY ==
--- NOTE | ~2023-09-26 | XR_ITS ---
EXAMINATION: XR CHEST CLINICAL INFORMATION: Dizziness COMPARISON: 08/04/2023 TECHNIQUE: 2 views of the chest were obtained. FINDINGS: No significant abnormality is noted involving the heart, lungs, mediastinum, bony thorax or soft tissues. XR/XR chest 2V IMPRESSION: Unremarkable examination.
[2023-09-26 15:15] VITALS: BP 132/82; PULSE 80; O2SAT 94
--- NOTE | 2023-09-26 15:23 | PC.NURSE ---
Pt.'s POC = 305. Provider notified
[2023-09-26 15:27] LABS: Glucose, Whole Blood 305 mg/dL (60-115)
[2023-09-26 15:33] VITALS: BP 123/75; PULSE 78; RESP 16; TEMP 36.6; O2SAT 94; BMI 19.1
--- NOTE | 2023-09-26 16:16 | ECG_ITS ---
Test Reason : DIZZINESS Blood Pressure : / mmHG Vent. Rate : 073 BPM Atrial Rate : 073 BPM P-R Int : 172 ms QRS Dur : 102 ms QT Int : 408 ms P-R-T Axes : 062 000 056 degrees QTc Int : 449 ms Normal sinus rhythm Incomplete right bundle branch block Borderline ECG When compared with ECG of 04-AUG-2023 10:53, Incomplete right bundle branch block has replaced Right bundle branch block Referred By: Yolanda Boles Electronically Signed By:JOSEPH CAMPOVERDE MD
--- NOTE | 2023-09-26 16:17 | ED_ITS ---
HPI - Weakness General Chief complaint: Weakness Stated complaint: weakness, diarrhea, diabetic, bgl of 560 Time Seen by Provider: 09/26/23 16:15 Source: patient, EMS, RN notes reviewed and old records reviewed Mode of arrival: EMS Limitations: no limitations History of Present Illness ED Provider: NELDA PEREZ PA-C HPI Narrative: 63 year old male with pmhx significant for chronic wounds, insulin-dependent diabetes mellitus, anxiety, bipolar disorder presents to the ED today via EMS for evaluation of generalized weakness and fatigue x1 week. Admits to associated nausea without vomiting and multiple episodes of diarrhea. Denies associated abdominal pain. Denies known sick contacts. Denies recent antibiotic use. Patient states that on EMS arrival his blood sugar was noted to be in the 500s. He does have a history of insulin-dependent diabetes and states that he has been taking his insulin as prescribed. Has not missed any doses. Additionally reports history of iron-deficiency anemia for which she takes iron supplementations at home. He reports dark stools over the past week. Denies Pepto-Bismol use. Denies bright red blood/ hematochezia. Denies fever, chills, flank pain, dysuria, hematuria. Related Data Home Medications ?Medication ?Instructions ?Recorded ?Confirmed atenolol 25 mg tablet 25 mg PO DAILY 07/25/23 07/25/23 carbidopa 25 mg-levodopa 100 mg 1.5 tab PO 5XD 07/25/23 07/25/23 tablet entacapone 200 mg tablet 200 mg PO 5XD 07/25/23 07/25/23 insulin glargine 100 unit/mL 30 unit subcut BEDTIME 07/25/23 07/25/23 subcutaneous solution lisinopril 20 mg tablet 20 mg PO DAILY 07/25/23 07/25/23 lithium carbonate 150 mg capsule 450 mg PO BEDTIME 07/25/23 07/25/23 minocycline 100 mg capsule 200 mg PO DAILY 07/25/23 07/25/23 nateglinide 120 mg tablet See Rx Instructions .Route .COMPLEX 07/25/23 07/25/23 nicotine (polacrilex) 2 mg gum 2 mg buccal Q2H 07/25/23 07/25/23 (Nicorette) posaconazole 100 mg tablet,delayed 100 mg PO DAILY 07/25/23 07/25/23 release pramipexole 0.5 mg tablet 0.5 mg PO TID 07/25/23 07/25/23 rasagiline 1 mg tablet 1 mg PO Q OTHER DAY 07/25/23 07/25/23 sertraline 25 mg tablet 25 mg PO DAILY 07/25/23 07/25/23 testosterone 10 mg/0.5 4 pump topical DAILY 07/25/23 07/25/23 gram/actuation transdermal gel pump Allergies Allergy/AdvReac Type Severity Reaction Status Date / Time divalproex sodium Allergy Severe INCRESED Verified 09/26/23 15:41 [From DEPAKOTE] AMMONIA LEVELS haloperidol [From Haldol] Allergy Confusion Verified 09/26/23 15:41 SEAFOOD Allergy Severe facial Uncoded 09/26/23 15:41 swelling; difficulty breathing Review of Systems 2 Review of Systems: Constitutional: No fever, chills, night sweats, weight changes, +fatigue, +generalized weakness ENT/Mouth: No ear pain, hearing loss, nasal congestion, sinus pain, rhinorrhea, sore throat Eyes: No eye pain, swelling, redness, vision changes, discharge Cardio: No chest pain, palpitations, NOGUEIRA, orthopnea, peripheral edema Pulm: No SOB, cough, sputum, wheezing, dyspnea, hemoptysis GI: No nausea, vomiting, hematemesis, abdominal pain, diarrhea, constipation, hematochezia, melena : No irregular bleeding, dysuria, frequency, urgency, hesitancy, hematuria, flank pain, urinary flow changes, urinary incontinence or retention MSK: No back pain, neck pain, joint pain, myalgias Skin: No lesions, rashes Neuro: No numbness, paresthesias, LOC, dizziness, headache Psych: No anxiety/panic, depression, SI/HI, AH/VH All other systems reviewed and are negative. [facility] Past Medical History Attestation statement: The following information was validated with the patient. Source: old records reviewed and nursing notes reviewed Medical History Bipolar 1 disorder Diabetes Anxiety Social History Social History Alcohol intake: never Patient Tobacco Use Status: Tobacco use Unknown Advance Directives: No Advance Directives Information Provided: No Do you have a plan to hurt others: No Plan Physical Exam 2 Vital Signs: Vital Signs: Last Vital Signs Temp 97.9 F 09/26/23 15:33 Pulse 78 09/26/23 15:33 Resp 16 09/26/23 15:33 BP 123/75 09/26/23 15:33 Pulse Ox 94 09/26/23 15:33 O2 Del Method Room Air 09/26/23 15:33 BMI result Body Mass Index 19.1 Vital signs stable, afebrile. Const: General: cooperative, healthy appearing, comfortable and no acute distress Orientation/consciousness: patient oriented x3 Limitations: no limitations HEENT: Head: Yes normal to inspection, Yes No palpable skull fracture present, Yes normocephalic and Yes atraumatic Eyes: General: appearance normal, both eyes and all related structures S clerae: sclerae normal Pupils: Equal, round and reactive pupils present Neck: Neck: Yes normal visual inspection, Yes full ROM, Yes no lymphadenopathy and Yes no meningeal signs Resp: Effort & Inspection: normal respiratory effort and able to speak in complete sentences Auscultation: clear to auscultation bilaterally Cardio: Rate: regular rate Rhythm: regular rhythm GI: Inspection: Yes normal to inspection Palpation (GI): Soft to palpation, nontender and no guarding : General: Yes no CVA tenderness Back/Spine/Pelvis: Back: no CVA tenderness Skin: General skin exam: no rashes or lesions noted Neuro: General: patient oriented x3, gait normal and no meningeal signs C ranial nerves: Yes Equal, round and reactive pupils present Extrem: General: Yes normal to inspection Course Course Course Narrative: 1748-- CBC without leukocytosis or left shift. H&H stable. Chemistry without acute electrolyte abnormality requiring intervention. BUN 18, creatinine 1.06, patient receiving 2 L IV fluids. Random glucose 393. No gap. Liver function WNL. Lipase WNL. Troponin undetectable, unlikely ACS. EKG showing normal sinus rhythm with a rate of 73 beats per minute, QT 408, QTC 449, no acute ischemic changes or ST elevations. There is an incomplete right bundle-branch block that is evident on previous. 2032-- Repeat BMP showing random glucose 213. Patient reports symptom improvement. Beta hydroxybutyrate is WNL. There is no gap. I do not have concern for DKA. I feel patient is stable for discharge home with continuation of his home insulin. He is agreeable with this. Ambulating with steady gait to the bathroom. declining GI panel/ cdiff eval at this time which I feel is reasonable. Patient has remained stable throughout ED visit today. Discussed worrisome signs and symptoms and when to return to the ED. All questions answered at this time. Patient is agreeable with disposition and stable for discharge. Medications Administered Discontinued Medications Generic Name Dose Route Start Last Admin Trade Name Dany PRN Reason Stop Dose Admin Sodium Chloride 1,000 mls @ 999 mls/hr 09/26/23 16:30 09/26/23 19:05 Ns IV 09/26/23 17:30 Infused .Q1H1M INDIRA Infusion Sodium Chloride 1,000 mls @ 999 mls/hr 09/26/23 16:30 09/26/23 19:05 Ns IV 09/26/23 17:30 Infused .Q1H1M INDIRA Infusion Ondansetron HCl 4 mg 09/26/23 16:27 09/26/23 18:01 Ondansetron Hcl 4 Mg/2 Ml Vial IVPUSH 09/26/23 16:28 4 mg ONCE ONE Administration Medical Decision Making Medical Decision Making [facility] Narrative: 63 year old male with pmhx significant for chronic wounds, insulin-dependent diabetes mellitus, anxiety, bipolar disorder presents to the ED today via EMS for evaluation of generalized weakness and fatigue x1 week. Vital signs stable, afebrile. He is nontoxic-appearing and in no acute distress. Lying comfortably on the exam bed. Obese abdomen, soft, nondistended, nontender to palpation, no rebound tenderness or guarding. no cvat. Differential diagnosis includes anemia, electrolyte abnormality, hyperglycemia, gastroenteritis. Low suspicion for DKA, hyperosmolar hyperglycemia, GI bleed. Plan for labs, ekg, OBS, viral serology, cxr, UA, IVF, re-evaluation. Differential Diagnosis Differential Diagnoses: The differential diagnosis associated with the presentation includes As above Admission/Observation not indicated. Lab Data [facility] Lab Attestation statement: I reviewed the patient's lab results. As above 09/26/23 16:57 09/26/23 19:46 Labs: Lab Results 09/26/23 09/26/23 09/26/23 Range/Units 15:22 16:52 16:57 WBC 6.2 (4.8-10.8) X10*3/uL RBC 5.08 (4.60-5.80) X10*6/uL Hgb 13.3 L D (14.0-18.0) g/dl Hct 43.2 D (42.0-52.0) % MCV 85.0 (80.0-98.0) fL MCH 26.2 L (27.0-33.0) pg MCHC 30.8 L (31.0-36.0) g/dl RDW 20.7 H (11.0-16.0) % Plt Count 275 (160-400) X10*3/uL MPV 9.7 (9.4-12.4) fL Immature Gran % (Auto) 0.8 H (0.0-0.4) % Neut % (Auto) 70.7 (45-73) % Lymph % (Auto) 16.7 L (20-40) % [place] % (Auto) 8.5 (2-11) % Eos % (Auto) 2.6 (0-4) % Baso % (Auto) 0.7 (0-2) % Lymph # (Auto) 1.0 L (1.2-4.9) X10*3/uL [place] # (Auto) 0.5 (0.1-1.2) X10*3/uL Eos # (Auto) 0.2 (0.0-0.4) X10*3/uL Baso # (Auto) 0.0 (0.0-0.2) X10*3/uL Abs Immat Gran (auto) 0.05 H (0.00-0.03) X10*3/uL Absolute Neuts (auto) 4.4 (2.0-8.3) x10*3/uL Absolute Nucleated RBC 0.000 (0.0-0.012) X10*3/uL Nucleated RBC % (auto) 0.0 (0.0-0.2) /100WBC PT 12.2 (11.1-13.3) SEC INR 1.0 (0.9-1.1) VBG pH (7.32-7.43) VBG pCO2 mmHg VBG pO2 mmHg VBG HCO3 (22-26) mmol/L VBG O2 Saturation % VBG Base Excess mmol/L Sodium 139 (135-145) mmol/L Potassium 4.2 (3.3-5.1) mmol/L Chloride 104 (96-108) mmol/L Carbon Dioxide 26 (22-29) mmol/L Anion Gap 13 (12-20) BUN 18 H (9-16) mg/dL Creatinine 1.06 (0.5-1.4) mg/dL Estim Creat Clear Calc 59.3 Estimated GFR > 60 POC Glucose 305 H (60-115) mg/dL Random Glucose 393 H* (60-115) mg/dL Calcium 9.6 D (8.4-10.2) mg/dL Magnesium 1.7 (1.6-2.6) mg/dL Total Bilirubin 0.3 (0.0-1.0) mg/dL AST 15 (5-37) U/L ALT 8 (0-40) U/L Alkaline Phosphatase 71 (39-117) U/L Troponin I High Sens < 2.7 (<3.5-35.0) ng/L Total Protein 6.4 L (6.5-8.0) g/dL Albumin 3.9 (3.5-5.0) g/dL Lipase 13 (8-78) U/L Beta-Hydroxybutyrate (0.02-0.27) mmol/L Urine Color Dark Yellow Urine Appearance Clear Urine pH 6.0 (5.0-9.0) Ur Specific Sarita >= 1.030 H (1.005-1.025) Urine Protein Negative (Neg-Trace) mg/dL Urine Glucose (UA) >=1000 H (Negative) mg/dL Urine Ketones Negative (Negative) mg/dL Urine Blood Negative (Negative) Urine Nitrite Negative (Negative) Ur Leukocyte Esterase Negative (Negative) Urine RBC 0-2 (0-2) /HPF Urine WBC 0-5 (0-5) /HPF Ur Squamous Epith Cells 0-2 (0-2) /HPF Urine Bacteria None Seen (None Seen) Hyaline Casts 0-2 (0-2) /LPF Stool Occult Blood NEGATIVE (NEGATIVE) Influenza Type A (PCR) NEGATIVE (Negative) Influenza Type B (PCR) NEGATIVE (Negative) RSV RNA Qual (PCR) NEGATIVE (Negative) SARS-CoV-2 RNA (RT-PCR) NEGATIVE (Negative) 09/26/23 09/26/23 09/26/23 Range/Units 18:54 18:55 19:46 WBC (4.8-10.8) X10*3/uL RBC (4.60-5.80) X10*6/uL Hgb (14.0-18.0) g/dl Hct (42.0-52.0) % MCV (80.0-98.0) fL MCH (27.0-33.0) pg MCHC (31.0-36.0) g/dl RDW (11.0-16.0) % Plt Count (160-400) X10*3/uL MPV (9.4-12.4) fL Immature Gran % (Auto) (0.0-0.4) % Neut % (Auto) (45-73) % Lymph % (Auto) (20-40) % [place] % (Auto) (2-11) % Eos % (Auto) (0-4) % Baso % (Auto) (0-2) % Lymph # (Auto) (1.2-4.9) X10*3/uL [place] # (Auto) (0.1-1.2) X10*3/uL Eos # (Auto) (0.0-0.4) X10*3/uL Baso # (Auto) (0.0-0.2) X10*3/uL Abs Immat Gran (auto) (0.00-0.03) X10*3/uL Absolute Neuts (auto) (2.0-8.3) x10*3/uL Absolute Nucleated RBC (0.0-0.012) X10*3/uL Nucleated RBC % (auto) (0.0-0.2) /100WBC PT (11.1-13.3) SEC INR (0.9-1.1) VBG pH 7.35 (7.32-7.43) VBG pCO2 54 mmHg VBG pO2 35 mmHg VBG HCO3 30 H (22-26) mmol/L VBG O2 Saturation 51.0 % VBG Base Excess 3.5 mmol/L Sodium 142 (135-145) mmol/L Potassium 4.0 (3.3-5.1) mmol/L Chloride 109 H (96-108) mmol/L Carbon Dioxide 24 (22-29) mmol/L Anion Gap 13 (12-20) BUN 15 (9-16) mg/dL Creatinine 0.80 (0.5-1.4) mg/dL Estim Creat Clear Calc 78.6 Estimated GFR > 60 POC Glucose (60-115) mg/dL Random Glucose 213 H (60-115) mg/dL Calcium 8.7 D (8.4-10.2) mg/dL Magnesium (1.6-2.6) mg/dL Total Bilirubin (0.0-1.0) mg/dL AST (5-37) U/L ALT (0-40) U/L Alkaline Phosphatase (39-117) U/L Troponin I High Sens (<3.5-35.0) ng/L Total Protein (6.5-8.0) g/dL Albumin (3.5-5.0) g/dL Lipase (8-78) U/L Beta-Hydroxybutyrate 0.10 (0.02-0.27) mmol/L Urine Color Urine Appearance Urine pH (5.0-9.0) Ur Specific Sarita (1.005-1.025) Urine Protein (Neg-Trace) mg/dL Urine Glucose (UA) (Negative) mg/dL Urine Ketones (Negative) mg/dL Urine Blood (Negative) Urine Nitrite (Negative) Ur Leukocyte Esterase (Negative) Urine RBC (0-2) /HPF Urine WBC (0-5) /HPF Ur Squamous Epith Cells (0-2) /HPF Urine Bacteria (None Seen) Hyaline Casts (0-2) /LPF Stool Occult Blood (NEGATIVE) Influenza Type A (PCR) (Negative) Influenza Type B (PCR) (Negative) RSV RNA Qual (PCR) (Negative) SARS-CoV-2 RNA (RT-PCR) (Negative) Independent Interpretation I performed an independent interpretation of an: EKG and Plain X-Ray Interpretation: EKG showing normal sinus rhythm with rate of 73 beats per minute, QT 408, QTC 449, incomplete right bundle-branch block which has been demonstrated on previous EKGs. Chest x-ray without infiltrate or consolidation, agree with radiologist's interpretation. Radiology Impression Discussion of test interpretation with radiology: I have reviewed the radiologist's reading. Radiologist Impression: EXAMINATION: XR CHEST CLINICAL INFORMATION: Dizziness COMPARISON: 08/04/2023 TECHNIQUE: 2 views of the chest were obtained. FINDINGS: No significant abnormality is noted involving the heart, lungs, mediastinum, bony thorax or soft tissues. XR/XR chest 2V IMPRESSION: Unremarkable examination. Independent Historian Clinical information obtained from an independent historian. History obtained from or confirmed by: EMS External Record Review External record reviewed: Inpatient record Chronic Conditions Patient?s care impacted by: Diabetes Social Determinants Patient?s care significantly limited by Social Determinants of Health including: Other Social Determinant of Health Critical Care Time Critical Care Time Critical Care Time: No Discharge Plan Discharge Clinical Impression: Hyperglycemia due to diabetes mellitus Patient Disposition: Home, Self-Care Instructions: What is Insulin (ED), Type 2 Diabetes Management for Adults (ED) Additional Instructions: Your blood work today is reassuring. Your blood sugar was elevated. You were treated for this with improvement. Make sure that you are monitoring your blood sugars at home. Take your insulin as prescribed. Do not miss any doses. Your chest xray is normal. Your EKG is normal. Your urine does not demonstrate infection. Your stool did not show blood. You tested negative for covid/flu/rsv. Return with new or worsening symptoms. In the case of an emergency call 911. Prescriptions: No Action nateglinide 120 mg tablet See Rx Instructions .ROUTE .COMPLEX Rx Instructions: TAKE 1/2 TO 1 TABLET BY MOUTH UP TO THREE TIMES DAILY WITH MEALS insulin glargine 100 unit/mL solution 30 unit subcut BEDTIME nicotine (polacrilex) [Nicorette] 2 mg Gum 2 mg BUCCAL Q2H minocycline 100 mg capsule 200 mg PO DAILY lisinopril 20 mg tablet 20 mg PO DAILY atenolol 25 mg tablet 25 mg PO DAILY lithium carbonate 150 mg capsule 450 mg PO BEDTIME pramipexole 0.5 mg tablet 0.5 mg PO TID entacapone 200 mg tablet 200 mg PO 5XD sertraline 25 mg tablet 25 mg PO DAILY carbidopa-levodopa 25-100 mg tablet 1.5 tab PO 5XD rasagiline 1 mg tablet 1 mg PO Q OTHER DAY testosterone 10 mg/0.5 gram /actuation gel in metered-dose pump 4 pump topical DAILY posaconazole 100 mg tablet,delayed release (DR/EC) 100 mg PO DAILY Referrals: [facility] [Provider Group] [facility] Primary [facility] [Provider Group] Interventions: ED Discharge Assessment Last Done: 09/26/23 21:41 Print Language: Czech
[2023-09-26 17:02] LABS: MANUAL DIFF FLAG NO
[2023-09-26 17:04] LABS: Basophils Percent Auto 0.7 % (0-2); Eosinophils Absolute Auto 0.2 X10*3/uL (0.0-0.4); Eosinophils Percent Auto 2.6 % (0-4); Hematocrit 43.2 % (42.0-52.0); Hemoglobin 13.3 g/dl (14.0-18.0); Imm Gran Abs Auto 0.05 X10*3/uL (0.00-0.03); Imm Gran Pct Auto 0.8 % (0.0-0.4); Lymphocytes Percent Auto 16.7 % (20-40); Mean Corpuscular HGB Conc 30.8 g/dl (31.0-36.0); Mean Corpuscular Hemoglobin 26.2 pg (27.0-33.0); Mean Platelet Volume 9.7 fL (9.4-12.4); Monocytes Absolute Auto 0.5 X10*3/uL (0.1-1.2); Monocytes Percent Auto 8.5 % (2-11); Neutrophils Absolute Auto 4.4 x10*3/uL (2.0-8.3); Neutrophils Percent Auto 70.7 % (45-73); Platelet Count 275 X10*3/uL (160-400); Red Blood Count 5.08 X10*6/uL (4.60-5.80); Red Cell Distribution Width 20.7 % (11.0-16.0); White Blood Count 6.2 X10*3/uL (4.8-10.8)
[2023-09-26 17:06] LABS: OBS Int Ctl Valid YES; OBS1 NEGATIVE (NEGATIVE)
[2023-09-26 17:11] LABS: Appearance Urine Clear; Color Urine Dark Yellow; Glucose Urine UA >=1000 mg/dL (Negative); Leukocyte Esterase Urine Negative (Negative); Nitrite Urine Negative (Negative); Specific Gravity - Urine >= 1.030 (1.005-1.025); UMIC TRIGGER UACC YES; Urine Blood Negative (Negative); Urine Ketones Negative (Negative); Urine Protein Negative (Neg-Trace)
[2023-09-26 17:16] LABS: Bacteria Urine None Seen (None Seen); Hyaline Casts Urine 0-2 /LPF (0-2); RBC Urine 0-2 /HPF (0-2); Squamous Epithelial Cell Urine 0-2 /HPF (0-2); WBC Urine 0-5 /HPF (0-5)
[2023-09-26 17:16] LABS: Prothrombin Time 12.2 SEC (11.1-13.3)
[2023-09-26 17:37] LABS: Troponin-I High Sensitivity < 2.7 ng/L (<3.5-35.0)
[2023-09-26 17:38] LABS: Anion Gap 13 (12-20); Blood Urea Nitrogen 18 mg/dL (9-16); Carbon Dioxide 26 mmol/L (22-29); Chloride 104 mmol/L (96-108); Creatinine Clr Calc Pharmacy 59.3; Estimated Glomerular Filt Rate > 60; Potassium 4.2 mmol/L (3.3-5.1); Sodium 139 mmol/L (135-145)
[2023-09-26 17:39] LABS: Alanine Aminotransferase 8 U/L (0-40); Albumin Level 3.9 g/dL (3.5-5.0); Alkaline Phosphatase 71 U/L (39-117); Aspartate Amino Transferase 15 U/L (5-37); Bilirubin Total 0.3 mg/dL (0.0-1.0); Calcium 9.6 mg/dL (8.4-10.2); Magnesium 1.7 mg/dL (1.6-2.6); Total Protein 6.4 g/dL (6.5-8.0)
[2023-09-26 17:40] LABS: Lipase 13 U/L (8-78)
[2023-09-26 17:42] LABS: Influenza A PCR NEGATIVE (Negative); Influenza B PCR NEGATIVE (Negative); Resp Syncy Virus RNA Qual PCR NEGATIVE (Negative); SARS COV2 PCR INHOUSE NEGATIVE (Negative)
[2023-09-26 17:43] LABS: Glucose Random 393 mg/dL (60-115)
[2023-09-26] MEDS: 0.9 % Sodium Chloride 1,000 ML 999 ML IV ×2 (18:01→18:02)
[2023-09-26] MEDS: ondansetron HCL 4 MG/2 ML VIAL IVPUSH (18:01)
[2023-09-26 19:03] LABS: VBG Base Excess 3.5 mmol/L; VBG HCO3 30 mmol/L (22-26); VBG pCO2 54 mmHg; VBG pH 7.35 (7.32-7.43); VBG pO2 35 mmHg
[2023-09-26 19:03] LABS: Venous Blood Gas Refer to POC result
--- NOTE | 2023-09-26 19:12 | PC.NURSE ---
This RN assumed pt care @ 1900. Pt resting in bed comfortably, no signs of distress. Plan of care ongoing.
[2023-09-26 20:12] LABS: Anion Gap 13 (12-20); Blood Urea Nitrogen 15 mg/dL (9-16); Calcium 8.7 mg/dL (8.4-10.2); Carbon Dioxide 24 mmol/L (22-29); Chloride 109 mmol/L (96-108); Creatinine Clr Calc Pharmacy 78.6; Estimated Glomerular Filt Rate > 60; Glucose Random 213 mg/dL (60-115); Sodium 142 mmol/L (135-145)
--- NOTE | 2023-09-26 21:12 | PC.NURSE ---
Pt requested and given urinal. Plan of care ongoing.
--- NOTE | 2023-09-26 21:36 | PC.NURSE ---
CDIFF and GI panel not done as pt unable to use the bathroom. Plan of care ongoing.
[2023-09-26 21:41] VITALS: BP 115/63; PULSE 75; RESP 14; TEMP 36.7; O2SAT 98
== END 2023-09-26 21:41 | disposition home or self-care (01) ==
PROVIDERS: Physician Assistant Medical; Emergency Provider Emergency Medicine
DX: E11.65 Type 2 diabetes mellitus with hyperglycemia (principal); R53.1 Weakness; R11.2 Nausea with vomiting, unspecified; D50.9 Iron deficiency anemia, unspecified; E11.9 Type 2 diabetes mellitus without complications; Z79.899 Other long term (current) drug therapy; Z79.4 Long term (current) use of insulin; Z03.818 Encounter for observation for suspected exposure to other biological agents ruled out
CPT/HCPCS: 0241U; 36415; 71046; 80048; 80053; 81001; 82010; 82272; 82803; 82947; 83690; 83735; 84484; 85025; 85610; 93005; 96361; 96374; 99284; J2405

== ENCOUNTER → 2023-09-26 16:16 | Outpatient (BNV) | payer MEDICARE, SELFPAY | PROVIDERS: Emergency Provider Emergency Medicine; Visit Provider Internal Medicine Cardiovascular Disease | DX: R42 Dizziness and giddiness (principal) | CPT/HCPCS: 93010 ==

== ENCOUNTER 2023-11-04 20:12 | Emergency (ER) | payer MEDICARE, SELFPAY ==
[2023-11-04 20:19] VITALS: BP 150/90; PULSE 92; O2SAT 95
--- NOTE | 2023-11-04 20:19 | ECG_ITS ---
Test Reason : DIZZINESS/WEAKNESS/LIGHTHEADED Blood Pressure : / mmHG Vent. Rate : 097 BPM Atrial Rate : 097 BPM P-R Int : 168 ms QRS Dur : 102 ms QT Int : 372 ms P-R-T Axes : 045 -27 047 degrees QTc Int : 472 ms Normal sinus rhythm Incomplete right bundle branch block Borderline ECG When compared with ECG of 26-SEP-2023 16:39, No significant change was found Referred By: William Glez Electronically Signed By:FRANCO ALVARES
[2023-11-04 20:36] VITALS: BP 132/63; PULSE 96; RESP 19; TEMP 36.9; O2SAT 97
[2023-11-04 20:41] VITALS: BP 132/63; PULSE 96; RESP 20; TEMP 36.9; BMI 26.6
--- NOTE | 2023-11-04 20:47 | ED.GENADULT ---
HPI - General Adult General Chief complaint: General Medical Stated complaint: SHAKY AND ANXIOUS, DIZZY,LIGHTHEADED Time Seen by Provider: 11/04/23 20:42 Source: patient Mode of arrival: EMS Limitations: no limitations History of Present Illness ED Provider: tiara NUR narrative: Patient's diabetic with history of Parkinson disease, anxiety and bipolar disorder comes here for increased shaky feeling and restlessness since he woke up in the morning patient took Valium 5 mg earlier. Does have chronic wounds in the right leg been followed by the wound clinic Related Data Home Medications ?Medication ?Instructions ?Recorded ?Confirmed atenolol 25 mg tablet 25 mg PO DAILY 07/25/23 07/25/23 carbidopa 25 mg-levodopa 100 mg 1.5 tab PO 5XD 07/25/23 07/25/23 tablet entacapone 200 mg tablet 200 mg PO 5XD 07/25/23 07/25/23 insulin glargine 100 unit/mL 30 unit subcut BEDTIME 07/25/23 07/25/23 subcutaneous solution lisinopril 20 mg tablet 20 mg PO DAILY 07/25/23 07/25/23 lithium carbonate 150 mg capsule 450 mg PO BEDTIME 07/25/23 07/25/23 minocycline 100 mg capsule 200 mg PO DAILY 07/25/23 07/25/23 nateglinide 120 mg tablet See Rx Instructions .Route .COMPLEX 07/25/23 07/25/23 nicotine (polacrilex) 2 mg gum 2 mg buccal Q2H 07/25/23 07/25/23 (Nicorette) posaconazole 100 mg tablet,delayed 100 mg PO DAILY 07/25/23 07/25/23 release pramipexole 0.5 mg tablet 0.5 mg PO TID 07/25/23 07/25/23 rasagiline 1 mg tablet 1 mg PO Q OTHER DAY 07/25/23 07/25/23 sertraline 25 mg tablet 25 mg PO DAILY 07/25/23 07/25/23 testosterone 10 mg/0.5 4 pump topical DAILY 07/25/23 07/25/23 gram/actuation transdermal gel pump Allergies Allergy/AdvReac Type Severity Reaction Status Date / Time divalproex sodium Allergy Severe INCRESED Verified 11/04/23 20:46 [From DEPAKOTE] AMMONIA LEVELS haloperidol [From Haldol] Allergy Confusion Verified 11/04/23 20:46 SEAFOOD Allergy Severe facial Uncoded 09/26/23 15:41 swelling; difficulty breathing Review of Systems Review of Systems: Yes all other systems are reviewed and are negative [facility] Past Medical History Medical History Bipolar 1 disorder Diabetes Anxiety Social History Social History Alcohol intake: never Patient Tobacco Use Status: Tobacco use Unknown Advance Directives: No Advance Directives Information Provided: No Physical Exam ED Vital Signs: Vital Signs - 24 hr 11/04/23 20:36 11/04/23 20:41 11/04/23 22:36 Temperature 98.4 F 98.4 F 98.3 F Pulse Rate 96 96 80 Respiratory Rate 19 20 16 Blood Pressure 132/63 132/63 110/57 L Pulse Oximetry 97 92 Oxygen Delivery Method Room Air Room Air 11/04/23 23:35 11/05/23 00:27 Temperature 98.9 F 98.9 F Pulse Rate 77 55 Respiratory Rate 16 16 Blood Pressure 101/55 L 101/55 L Pulse Oximetry 92 92 Oxygen Delivery Method Room Air Room Air BMI result Body Mass Index 26.6 Appearance: Alert. Oriented X3. No acute distress. Anxious Eyes: PERRLA, No Nystagmus ENT: Pharynx normal. Oral Mucosa moist Neck: Normal inspection. Neck supple. CVS: Normal heart rate and rhythm. Pulses normal. Respiratory: No respiratory distress. Equal air entry bilateral, no wheezing/rales/rhonchi Abdomen: Soft and nontender. Bowel sounds are present, no mass palpable, no CVA tenderness Skin: Skin warm and dry. Normal skin color. Normal skin turgor. Extremities: No lower extremity edema. No calf tenderness healing wound in the right lower extremity Neuro: Oriented X 3. No motor deficit. Medications Administered Discontinued Medications Generic Name Dose Route Start Last Admin Trade Name Freq PRN Reason Stop Dose Admin Diazepam 5 mg 11/04/23 22:01 11/04/23 22:13 Diazepam 5 Mg Tablet PO 11/04/23 22:02 5 mg ONCE ONE Administration Sodium Chloride 1,000 mls @ 999 mls/hr 11/04/23 21:10 11/04/23 23:50 Ns IV 11/04/23 22:10 Infused .Q1H1M ONE Infusion Insulin Human Lispro 12 unit 11/04/23 21:11 11/04/23 21:54 Insulin Lispro 100 Unit/Ml 3 Ml Vial SUBCUT 11/04/23 21:12 12 unit ONCE ONE Administration Medical Decision Making Medical Decision Making [facility] Narrative: Patient with anxiety came with similar episode also has chronic leg wounds which was dressed labs are stable patient advised to take his insulin on time and follow up with PCP Lab Data [facility] Lab Attestation statement: I reviewed the patient's lab results. 11/04/23 20:44 11/04/23 20:44 Labs: Lab Results 11/04/23 11/04/23 11/04/23 Range/Units 20:44 20:56 22:49 WBC 7.3 (4.8-10.8) X10*3/uL RBC 4.70 (4.60-5.80) X10*6/uL Hgb 14.0 (14.0-18.0) g/dl Hct 41.1 L (42.0-52.0) % MCV 87.4 (80.0-98.0) fL MCH 29.8 (27.0-33.0) pg MCHC 34.1 (31.0-36.0) g/dl RDW 12.7 (11.0-16.0) % Plt Count 210 (160-400) X10*3/uL MPV 9.5 (9.4-12.4) fL Immature Gran % (Auto) 0.7 H (0.0-0.4) % Neut % (Auto) 74.1 H (45-73) % Lymph % (Auto) 15.3 L (20-40) % [place] % (Auto) 8.0 (2-11) % Eos % (Auto) 1.4 (0-4) % Baso % (Auto) 0.5 (0-2) % Lymph # (Auto) 1.1 L (1.2-4.9) X10*3/uL [place] # (Auto) 0.6 (0.1-1.2) X10*3/uL Eos # (Auto) 0.1 (0.0-0.4) X10*3/uL Baso # (Auto) 0.0 (0.0-0.2) X10*3/uL Abs Immat Gran (auto) 0.05 H (0.00-0.03) X10*3/uL Absolute Neuts (auto) 5.4 (2.0-8.3) x10*3/uL Absolute Nucleated RBC 0.000 (0.0-0.012) X10*3/uL Nucleated RBC % (auto) 0.0 (0.0-0.2) /100WBC Sodium 138 (135-145) mmol/L Potassium 3.4 (3.3-5.1) mmol/L Chloride 102 (96-108) mmol/L Carbon Dioxide 26 (22-29) mmol/L Anion Gap 13 (12-20) BUN 13 (9-16) mg/dL Creatinine 1.15 (0.5-1.4) mg/dL Estim Creat Clear Calc 65.7 Estimated GFR > 60 POC Glucose 224 H (60-115) mg/dL Random Glucose 370 H* (60-115) mg/dL Calcium 9.5 D (8.4-10.2) mg/dL Magnesium 1.6 (1.6-2.6) mg/dL Total Bilirubin 1.0 (0.0-1.0) mg/dL AST 15 (5-37) U/L ALT 7 (0-40) U/L Alkaline Phosphatase 87 (39-117) U/L Total Protein 6.4 L (6.5-8.0) g/dL Albumin 3.9 (3.5-5.0) g/dL Influenza Type A (PCR) NEGATIVE (Negative) Influenza Type B (PCR) NEGATIVE (Negative) RSV RNA Qual (PCR) NEGATIVE (Negative) SARS-CoV-2 RNA (RT-PCR) NEGATIVE (Negative) Discharge Plan Discharge Clinical Impression: Anxiety, Controlled diabetes mellitus with hyperglycemia Patient Disposition: Home, Self-Care Instructions: Anxiety (ED), Diabetic Hyperglycemia (ED) Additional Instructions: Drink plenty of fluids and take your insulin on time Take your medicine for anxiety and follow up with PCP Prescriptions: No Action nateglinide 120 mg tablet See Rx Instructions .ROUTE .COMPLEX Rx Instructions: TAKE 1/2 TO 1 TABLET BY MOUTH UP TO THREE TIMES DAILY WITH MEALS insulin glargine 100 unit/mL solution 30 unit subcut BEDTIME nicotine (polacrilex) [Nicorette] 2 mg Gum 2 mg BUCCAL Q2H minocycline 100 mg capsule 200 mg PO DAILY lisinopril 20 mg tablet 20 mg PO DAILY atenolol 25 mg tablet 25 mg PO DAILY lithium carbonate 150 mg capsule 450 mg PO BEDTIME pramipexole 0.5 mg tablet 0.5 mg PO TID entacapone 200 mg tablet 200 mg PO 5XD sertraline 25 mg tablet 25 mg PO DAILY carbidopa-levodopa 25-100 mg tablet 1.5 tab PO 5XD rasagiline 1 mg tablet 1 mg PO Q OTHER DAY testosterone 10 mg/0.5 gram /actuation gel in metered-dose pump 4 pump topical DAILY posaconazole 100 mg tablet,delayed release (DR/EC) 100 mg PO DAILY Interventions: ED Discharge Assessment Last Done: 11/05/23 00:27 Discharge Date/Time: 11/05/23 00:25 Print Language: Occitan
[2023-11-04 20:49] LABS: MANUAL DIFF FLAG NO
[2023-11-04 21:03] LABS: Basophils Percent Auto 0.5 % (0-2); Eosinophils Absolute Auto 0.1 X10*3/uL (0.0-0.4); Eosinophils Percent Auto 1.4 % (0-4); Hematocrit 41.1 % (42.0-52.0); Imm Gran Abs Auto 0.05 X10*3/uL (0.00-0.03); Imm Gran Pct Auto 0.7 % (0.0-0.4); Lymphocytes Absolute Auto 1.1 X10*3/uL (1.2-4.9); Lymphocytes Percent Auto 15.3 % (20-40); Mean Corpuscular HGB Conc 34.1 g/dl (31.0-36.0); Mean Corpuscular Hemoglobin 29.8 pg (27.0-33.0); Mean Corpuscular Volume 87.4 fL (80.0-98.0); Mean Platelet Volume 9.5 fL (9.4-12.4); Monocytes Absolute Auto 0.6 X10*3/uL (0.1-1.2); Neutrophils Absolute Auto 5.4 x10*3/uL (2.0-8.3); Neutrophils Percent Auto 74.1 % (45-73); Platelet Count 210 X10*3/uL (160-400); Red Cell Distribution Width 12.7 % (11.0-16.0); White Blood Count 7.3 X10*3/uL (4.8-10.8)
[2023-11-04 21:11] LABS: Alanine Aminotransferase 7 U/L (0-40); Albumin Level 3.9 g/dL (3.5-5.0); Alkaline Phosphatase 87 U/L (39-117); Anion Gap 13 (12-20); Aspartate Amino Transferase 15 U/L (5-37); Blood Urea Nitrogen 13 mg/dL (9-16); Calcium 9.5 mg/dL (8.4-10.2); Carbon Dioxide 26 mmol/L (22-29); Chloride 102 mmol/L (96-108); Creatinine Clr Calc Pharmacy 65.7; Estimated Glomerular Filt Rate > 60; Glucose Random 370 mg/dL (60-115); Magnesium 1.6 mg/dL (1.6-2.6); Potassium 3.4 mmol/L (3.3-5.1); Sodium 138 mmol/L (135-145); Total Protein 6.4 g/dL (6.5-8.0)
[2023-11-04 21:38] LABS: Influenza A PCR NEGATIVE (Negative); Influenza B PCR NEGATIVE (Negative); Resp Syncy Virus RNA Qual PCR NEGATIVE (Negative); SARS COV2 PCR INHOUSE NEGATIVE (Negative)
[2023-11-04] MEDS: Insulin Lispro 100 UNIT/ML 3 ML VIAL 12 UNIT SUBCUT (21:54)
[2023-11-04] MEDS: 0.9 % Sodium Chloride 1,000 ML 999 ML IV (21:55)
[2023-11-04] MEDS: diazePAM 5 MG TABLET PO (22:13)
[2023-11-04 22:36] VITALS: BP 110/57; PULSE 80; RESP 16; TEMP 36.8; O2SAT 92
[2023-11-04 22:54] LABS: Glucose, Whole Blood 224 mg/dL (60-115)
[2023-11-04 23:35] VITALS: BP 101/55; PULSE 77; RESP 16; TEMP 37.2; O2SAT 92
--- NOTE | 2023-11-04 23:36 | MHC.EDTECH ---
This tech took over care of patient at 2300,hourly rounds and vitals completed,BP is low 101/55 RN was made aware,patient urinated 500MLS of yellow urine,call [facility]ates in reach
[2023-11-05 00:27] VITALS: BP 101/55; PULSE 55; RESP 16; TEMP 37.2; O2SAT 92
== END 2023-11-05 00:25 | disposition home or self-care (01) ==
PROVIDERS: Physician Assistant; Emergency Provider Internal Medicine
DX: E11.65 Type 2 diabetes mellitus with hyperglycemia (principal); R42 Dizziness and giddiness; F41.9 Anxiety disorder, unspecified; I45.10 Unspecified right bundle-branch block; R94.31 Abnormal electrocardiogram [ECG] [EKG]; Z79.899 Other long term (current) drug therapy; Z03.818 Encounter for observation for suspected exposure to other biological agents ruled out
CPT/HCPCS: 0241U; 36415; 80053; 82947; 83735; 85025; 93005; 96360; 96361; 99284